=== PATIENT | female | born 1945 | race African-American/Black ===

== ENCOUNTER 2018-10-01 02:12 | Inpatient (IN) ==
--- NOTE | 2018-10-01 02:02 | PROVIDER DOCUMENTATION ---
This chart was entered by Celia Gavin Scribe, acting as scribe for David Reyna MD. HPI-Abdominal Pain/GI Problem - General Chief Complaint: Abdominal Pain Stated Complaint: Abd Pain Time Seen by Provider: 10/01/18 01:53 Source: patient, EMS ([facility]) Allergies/Adverse Reactions: Patient Allergies Allergy/AdvReac Type Severity Reaction Status Date / Time nitrofurantoin Allergy Intermediate ITCHING Verified 10/01/18 02:35 macrocrystalline * [From Macrodantin] nitrofurantoin Allergy Unknown Verified 10/01/18 02:35 [From Macrobid] Home Medications: Home Medication List Medication Instructions Recorded Confirmed Last Taken Type Anastrozole 1 mg PO DAILY 05/26/16 05/26/16 05/26/16 History Apixaban [Eliquis] 2.5 mg PO BID 05/26/16 05/26/16 05/26/16 History Atorvastatin Calcium 20 mg PO QHS 05/26/16 05/26/16 05/25/16 History Carvedilol [Coreg] 3.125 mg PO BID 05/26/16 05/26/16 05/26/16 History Famotidine 40 mg PO BID 05/26/16 05/26/16 05/26/16 History Fluticasone/Salmeterol [Advair 1 each IH BID 05/26/16 05/26/16 05/26/16 History 250-50 Diskus] Folic Acid 1 mg PO DAILY 05/26/16 05/26/16 05/26/16 History Gabapentin 100 mg PO TID 05/26/16 05/26/16 05/26/16 History Hydrocodone/Acetaminophen [[place] 1 each PO BID PRN 05/26/16 05/26/16 05/25/16 History 7.5-325 Tablet] Iron Carbonyl/Ascorbic Acid 1 each PO DAILY 05/26/16 05/26/16 05/26/16 History [Icar-C] Furosemide [Lasix] 40 mg PO DAILY PRN #30 tablet 05/29/16 Unknown Rx - History of Present Illness-ABD Nature of Presenting Problems: 73 yof presents to ed via ems with cc of left sided abd pain upper and lower quads that radiates to epigastric area with nausea and vomiting. Reports took pepto with no relief. Also reports loose stool also. States eat chilli before pain started at 1900. Abdominal Pain Onset Location: reports: LUQ, LLQ Pain Radiation: reports: epigastric Quality of Pain: reports: aching Severity in ED: reports: moderate Onset/Duration: reports: this evening (1899) Timing: reports: still present Review of Systems - Adult - REVIEW OF SYSTEMS - ADULT Constitutional: denies: chills, fever, fatique Eyes: reports: no symptoms reported Ears, Nose, Mouth & Throat: reports: no symptoms reported Cardiovascular: denies: chest pain, irregular heart rate, orthopnea, syncope Respiratory: denies: cough, shortness of breath, wheezing Gastrointestinal: reports: abdominal pain, nausea, vomiting. denies: hematemesis, constipation, diarrhea, difficulty swallowing, frequent heartburn, poor appetite, rectal bleeding Genitourinary: denies: dysuria, discharge, frequency, flank pain, frequent UTI's , hematuria, hesitency, incontinence Musculoskeletal: reports: no symptoms reported Integumentary: reports: no symptoms reported Neurological: reports: no symptoms reported Psychiatric: reports: no symptoms reported Endocrine: reports: no symptoms reported Hematologic/Lymphatic: reports: no symptoms reported Allergic/Immunologic: reports: no symptoms reported All Other Systems: Reviewed and Negative Past History - Adult - PAST MEDICAL HISTORY-ADULT Review of Records: reports: Nursing Assessment Review, Medications Reviewed Cardiovascular: reports: A-Fib, HTN, hyperlipidemia Respiratory: reports: asthma, COPD Genitourinary: reports: other (renal insufficency) Endocrine/Immune: reports: Diabetes - PRIOR SURGERIES/PROCEDURES Surgical/Procedure History: reports: , other (right masectomy) - IMMUNIZATION STATUS Childhood Immunizations: See Nurse Assessment Flu Vaccine: See Nurse Assessment - FAMILY HISTORY Family History: reviewed, not pertinent - SOCIAL HISTORY Smoking: non-smoker Substance Use: none/never Physical Exam-General - PHYSICAL EXAM-ADULT Initial Vital Signs Reviewed: Yes - CONSTITUTIONAL General Appearance: appears well, alert, no apparent distress, obese - EYES Eyes: PERRL/EOMI, pink conjunctivae - HEAD, EARS, NOSE, MOUTH & THROAT HENMT: moist mucous membranes - NECK Neck: non-tender, full range of motion, supple, normal inspection - RESPIRATORY Respiratory: chest non-tender, lungs clear, normal breath sounds, no pleuratic chest pain, no respiratory distress, no accessory muscle use - CARDIOVASCULAR Cardiovascular: regular rate, rhythm, no edema, no gallop, no JVD, no murmur - GASTROINTESTINAL (ABDOMEN) Abdominal Exam: non tender, soft, no organomegaly, no pulsatile mass, tenderness (ttp epigastric). negative: normal bowel sounds (decreased bowel sounds) - LYMPHATIC Lymphatic: no adenopathy - MUSCULOSKELETAL Back Exam: normal inspection, no CVA tenderness, no vertebral tenderness Extremity: normal range of motion, non-tender, normal gait, normal inspection - SKIN Integumentary: normal color, normal turgor, warm/dry, other (healed C Section scar on abd) - NEUROLOGIC Neurologic: grossly normal - PSYCHIATRIC Psych/Mental Status: normal mood/affect, normal thought content, normal thought process, oriented x 3 Progress - PLAN OF CARE/RESULTS Progress/Plan/Lab Results: Laboratory Tests 10/01/18 10/01/18 10/01/18 02:08 02:48 02:55 WBC 4.41 L RBC 3.47 L Hgb 10.3 L Hct 32.2 L MCV 92.8 MCH 29.7 MCHC 32.0 L RDW Std Deviation 18.8 H Plt Count 173 MPV 11.8 H Immature Gran % (Auto) 0.2 Neut % (Auto) 78.4 H Lymph % (Auto) 10.7 L [place] % (Auto) 10.0 H Eos % (Auto) 0.5 Baso % (Auto) 0.2 Immature Gran # (Auto) 0.01 Neut # (Auto) 3.46 Lymph # (Auto) 0.47 L [place] # (Auto) 0.44 Eos # (Auto) 0.02 Baso # (Auto) 0.01 Sodium 142 Potassium 5.1 Chloride 107 Carbon Dioxide 19 L Anion Gap 16 BUN 47 H Creatinine 2.2 H Estimated GFR/1.73 m2 22 BUN/Creatinine Ratio 21 Glucose 127 H POC Glucose 128 H Calculated Osmolality 297 Calcium 9.8 Total Bilirubin 1.30 H AST 22 ALT 10 Alkaline Phosphatase 115 H Troponin T Rro-U-Wmbgwxcqaip Pept Total Protein 7.2 Albumin 3.4 L Globulin 4.0 Albumin/Globulin Ratio 1.0 Amylase 29 Lipase 17 Urine Source 10/01/18 10/01/18 10/01/18 02:55 02:55 04:08 WBC RBC Hgb Hct MCV MCH MCHC RDW Std Deviation Plt Count MPV Immature Gran % (Auto) Neut % (Auto) Lymph % (Auto) [place] % (Auto) Eos % (Auto) Baso % (Auto) Immature Gran # (Auto) Neut # (Auto) Lymph # (Auto) [place] # (Auto) Eos # (Auto) Baso # (Auto) Sodium Potassium Chloride Carbon Dioxide Anion Gap BUN Creatinine Estimated GFR/1.73 m2 BUN/Creatinine Ratio Glucose POC Glucose Calculated Osmolality Calcium Total Bilirubin AST ALT Alkaline Phosphatase Troponin T < 0.010 Pad-O-Uimlysnhgzj Pept 2451 H Total Protein Albumin Globulin Albumin/Globulin Ratio Amylase Lipase Urine Source CLEAN CATCH Orders Category Date Time Status FSBS [Finger Stick Blood Sugar (ED)] DIRECTED Care 10/01/18 02:40 Active Saline Loc DIRECTED Care 10/01/18 01:54 Active NPO Diet 10/01/18 01:[address] ABDOMEN/PELVIS W/O CONTRAST [CT] Stat Exams 10/01/18 03:44 Taken AMYLASE [CHEM] Stat Lab 10/01/18 02:55 Completed BNP [PRO B-NATRIURETIC PEPTIDE] Stat Lab 10/01/18 02:55 Completed CBC WITH ELECTRONIC DIFF [HEME] Stat Lab 10/01/18 02:48 Completed COMPREHENSIVE METABOLIC PANEL [CHEM] Stat Lab 10/01/18 02:55 Completed LIPASE [CHEM] Stat Lab 10/01/18 02:55 Completed TROPONIN T Stat Lab 10/01/18 02:[address] W/POSS RFLX CULT [URINALYSIS] Routine Lab 10/01/18 04:08 Results Ondansetron Odt [Zofran Odt] Med 10/01/18 01:57 Discontinued 4 mg PO NOW ONE EKG [EKG] Stat Ther 10/01/18 01:54 Ordered Vital Signs - 24 hr 10/01/18 01:50 Temperature 96.9 F L Pulse Rate 98 H Respiratory Rate 22 Blood Pressure 147/93 O2 Sat by Pulse Oximetry [address] Elaine Iglesias already paiged Result Diagrams: 10/01/18 02:48 10/01/18 02:55 - CT/MRI 1 CT Study: Abdomen, Pelvis Impression: Abnormal, Discussed w/Radiology (Early to moderate small bowel obstruction) - CONSULTS/PCP/HOSPITALIST Notification #1 *Consult/PCP/Hospitalist*: Time Discussed: 05:15 Consult Disposition: Admit #2 Consult: Time Discussed: 05:28 Consult Disposition: Admit Departure - Departure Date of Disposition Decision: 10/01/18 Time of Disposition Decision: 05:14 DIAGNOSIS: Small bowel obstruction, Abdominal pain Disposition: ADMITTED INPATIENT 09 Certified Medical Emergency: Emergent Condition: Stable Referrals and Follow-Ups: None,PCP [Primary Care Provider] - - Critical Care Note This patient required my direct & personal management of CC.: No Attestation - Physician/ CYDNEY Attestation Patient care was provided by Advanced Practice Provider:: No The physician spent face to face time with patient:: Yes Advanced Practice Provider documentation review:: Supervising physician onsite and consulted in the evaluation and care of this patient. The physician did have a face to face encounter with the patient. This chart was documented by the indicated scribe, (Celia Gavin Scribe) and accurately reflects the services I performed and decisions made by me, David Reyna MD, as attested by the provider's signature.
[~2018-10-01 02:12] MED LIST: ZOFRAN ODT PO ONE
[2018-10-01 03:35] LABS: BASO# 0.01 X1000 (0.0-0.2); BASO% 0.2 % (0.0-0.8); EOS# 0.02 X1000 (0.0-0.7); EOS% 0.5 % (0.0-10.0); HEMATOCRIT 32.2 % (37.0-47.0); HEMOGLOBIN 10.3 g/dL (12.0-16.0); IMM GRAN# 0.01 X1000 (0.0-0.04); IMM GRAN% 0.2 % (0.0-0.5); LYMPH# 0.47 X1000 (1.2-3.4); LYMPH% 10.7 % (20.5-51.1); MCH 29.7 PG (27-31); MCV 92.8 FL (81-99); MONO# 0.44 X1000 (0.11-0.59); MPV 11.8 FL (7.4-10.4); NEUT# 3.46 X1000 (1.4-6.5); NEUT% 78.4 % (42.2-75.2); PLT 173 X1000 (130-400); RBC 3.47 XMIL (4.2-5.4); RDW 18.8 % (11.5-14.5); WBC 4.41 X1000 (4.8-10.8)
[2018-10-01 03:40] LABS: ALBUMIN 3.4 g/dL (3.5-5.0); CALCIUM 9.8 mg/dL (8.8-10.2); CREATININE 2.2 mg/dL (0.5-0.9); POTASSIUM 5.1 mmol/L (3.5-5.1); TOTAL BILIRUBIN 1.3 mg/dL (0.20-1.00); TOTAL PROTEIN 7.2 g/dL (6.3-8.3)
[2018-10-01 04:32] LABS: URINE SOURCE CLEAN CATCH
[2018-10-01] MEDS ORDERED: NS 1,000 ML IV ONE (05:25)
[2018-10-01 05:58] LABS: BILIRUBIN URINE NEGATIVE (NEGATIVE); BLOOD URINE 1+ (NEGATIVE); GLUCOSE URINE NEGATIVE (NEGATIVE); KETONE URINE NEGATIVE (NEGATIVE); LEUKOCYTES URINE TRACE (NEGATIVE); NITRITE URINE NEGATIVE (NEGATIVE); PH URINE 6.5; PROTEIN URINE NEGATIVE (NEGATIVE); UROBILINOGEN URINE 8 mg/dL
[2018-10-01 05:59] LABS: CLARITY CLEAR (CLEAR); COLOR YELLOW
[2018-10-01 06:01] LABS: URINE BACTERIA 1+ /HFP; URINE EPITHELIAL CELLS <10 /HPF (<10); URINE RBC <10 /HPF (<10); URINE WBC <10 /HPF (<10)
[2018-10-01] MEDS ORDERED: LOPRESSOR IV SCH (08:00)
--- NOTE | 2018-10-01 08:13 | Diag Imaging Result Doc PS360 ---
EXAM: CT ABDOMEN/PELVIS W/O CONTRAST INDICATION: abdominal pain TECHNIQUE: This exam was performed using automated exposure control, adjustment of mA or kV according to patient size, and/or use of iterative reconstruction technique. COMPARISON: 05/07/2016 FINDINGS: There is cardiomegaly and subsegmental atelectasis at the left lung base. There are a few calcified granulomata at the lung bases. There is trace pericardial fluid. The liver, gallbladder, and spleen are grossly unremarkable. The pancreas is atrophic but is unremarkable, otherwise. The adrenal glands are unremarkable. The kidneys appear atrophic but are grossly unremarkable, otherwise. The urinary bladder is unremarkable. The reproductive tract is grossly unremarkable as imaged. The appendix is normal. There is feculent material in several loops of small bowel in the lower abdomen, which is a nonspecific finding suggesting slow bowel transit. Bowel loops are not significantly distended. The colon is largely collapsed. There is nothing that is specific for obstruction. There is probably trace free fluid in the pelvis. No focal inflammatory changes or free abdominal gas is identified. There is generalized body wall anasarca. There are degenerative changes throughout the spine and severe degenerative changes of both hips. IMPRESSION: 1.Basilar material in several loops of small bowel with no significant distention. This is a nonspecific finding suggesting slow bowel transit. 2.Body wall anasarca. 3.Other incidental/nonacute findings detailed above. Electronically signed by Daquan Sharp 10/01/2018 8:11 AM
--- NOTE | 2018-10-01 08:35 | EKG Report ---
Test Performed on : 10/01/2018 02:59:37 AM Test Reason : pain Blood Pressure : / mmHG Vent. Rate : 095 BPM Atrial Rate : 057 BPM P-R Int : 000 ms QRS Dur : 080 ms QT Int : 372 ms P-R-T Axes : 000 132 -11 degrees QTc Int : 467 ms Undetermined rhythm Right axis deviation Low voltage QRS Nonspecific ST and T wave abnormality Abnormal ECG When compared with ECG of 06-MAY-2016 23:45, Current undetermined rhythm precludes rhythm comparison, needs review QRS axis shifted right Nonspecific T wave abnormality now evident in Anterior leads Unconfirmed Result
[2018-10-01] MEDS: ZOFRAN IV PRN ×3 (08:58→23:40)
--- NOTE | 2018-10-01 12:48 | HISTORY AND PHYSICAL ---
PRIMARY CARE PROVIDER: Dr. Melissa Clark. CHIEF COMPLAINT: Abdominal pain with nausea and vomiting. HISTORY OF PRESENT ILLNESS: Ms. Ruiz is a 73-year-old female who carries a past medical history of chronic kidney disease stage 3, atrial fibrillation, bradycardia status post pacemaker placement, hyperlipidemia, hypertension, iron deficiency anemia, COPD, diabetes mellitus type 2, breast cancer, and morbid obesity. The patient reported to the ED via EMS with complaint of left- sided abdominal pain in the upper and lower quadrants associated with nausea and vomiting. She did try to take some Pepto-Bismol with no relief. CT of the abdomen and pelvis showed basilar arterial and several loops of small bowel with no significant distention. Nonspecific findings suggestive of slow bowel transit, body wall edema. Patient was admitted for small-bowel obstruction. We contacted Dr. Henry. We will continue with NPO, IV fluids, and management of pain and nausea with antiemetics and pain medications. Continue with bowel rest. Await general surgery's recommendations. 1. Chronic kidney disease stage 3. Patient appears to be at her baseline. 2. Diabetes mellitus type 2. Will continue sliding scale and pattern blood sugars. 3. Atrial fibrillation and bradycardia status post permanent pacemaker placement. 4. Hypertension. 5. Hyperlipidemia. 6. Iron deficiency anemia. 7. COPD. 8. Morbid obesity. 9. Breast cancer number PAST SURGICAL HISTORY: 1. Right mastectomy. 2. . 3. Permanent pacemaker. SOCIAL HISTORY: She quit smoking over 30 years ago. FAMILY HISTORY: Noncontributory. ALLERGIES: Macrodantin. HOME MEDICATIONS: 1. Atorvastatin. 2. Calcium 20 mg p.o. at bedtime. 3. Coreg 1 tab p.o. b.i.d. 4. Pepcid 20 mg p.o. b.i.d. 5. Ferrous sulfate 1 tab p.o. at bedtime. 6. Advair 250/50 Diskus 1 each inhaled b.i.d. 7. Lasix 120 mg p.o. every morning. 8. Lasix 80 mg p.o. every evening. 9. [place] 7.5/325 one each p.o. b.i.d. p.r.n. 10. Hydroxyzine 25 mg p.o. t.i.d. p.r.n. 11. Irbesartan 1 tab p.o. daily. 12. Potassium chloride 1 tab p.o. daily. 13. Xarelto 15 mg p.o. daily. PHYSICAL EXAMINATION: VITAL SIGNS: Temperature 98.5 degrees, heart rate 90, respirations 20, blood pressure 146/79, O2 is 96% on room air.General: Ms. Ruiz is a 73-year-old female who is lying on the stretcher in no acute distress. She is asleep, awakens easily. HEENT: Atraumatic, normocephalic. PERRL. Neck: Supple. Trachea midline. CV: S1, S2 appreciated. No murmurs. No gallops. No rubs. Respiratory: Lung sounds clear to excursion. Nonlabored breathing. GI: Relatively soft. Tender in the left quadrants. Hypoactive bowel sounds. Extremities: No clubbing. No cyanosis. Skin: Warm, dry, and intact. Neurologic: The patient with no focal deficits noted. Patient is alert and oriented x4. DIAGNOSTIC DATA: Abdomen and pelvis CT show several loops of small bowel no significant distention. There are nonspecific finding suggesting small bowel transient, body wall anisocoria. LABORATORY DATA: White count 4, hemoglobin and hematocrit 10 and 32, platelet count is 173,000. Chemistry: Sodium 142, potassium 5.2, BUN 47, creatinine 2.2, blood glucose is 127, total bilirubin is 1.30. Troponin less than 0.010. ProBNP is 2451. Amylase 29, lipase 17. ASSESSMENT AND PLAN: 1. Partial small bowel obstruction. General Surgery has been consulted. We will continue with NPO status, IV fluid. Management for nausea and vomiting as well as pain control. Await General Surgery's recommendation. 2. Chronic kidney disease stage 3. Patient appears to be at her baseline. 3. Atrial fibrillation bradycardia status post permanent pacemaker. 4. Hyperlipidemia. 5. Hypertension. 6. Iron deficiency anemia. 7. Chronic obstructive pulmonary disease. 8. Diabetes mellitus type 2. Continue with sliding scale and pattern blood sugars. 9. Breast cancer. 10. Morbid obesity. 11. Further recommendations to follow physician evaluation, laboratory, and diagnostic data. Dictated by DAVID Mckeon for Marcello Iglesias MD cc: MD Melissa Adams MD [facility]
[2018-10-01] MEDS ORDERED: DUONEB (A & A) INH PRN (17:42)
[2018-10-01] MEDS ORDERED: NS 1,000 ML IV SCH (17:45)
[2018-10-01] MEDS: SODIUM CHLORIDE 0.9% INJ SCH (19:07)
[2018-10-01] MEDS: PROTONIX IV SCH (19:07)
[2018-10-01] MEDS ORDERED: DUONEB (A & A) INH SCH ×2 (19:16→22:00)
--- NOTE | 2018-10-01 19:31 | Diag Imaging Result Doc PS360 ---
EXAM: CHEST-PORTABLE 10/01/2018 HISTORY: ? PNA TECHNIQUE: AP portable at 1919 COMMENT: There is alveolar opacity in the left upper lobe which was not present on 05/28/2016. There is cardiomegaly. IMPRESSION: Left upper lobe pneumonia. Electronically signed by Carlo Shelton 10/01/2018 7:29 PM
[2018-10-01] MEDS: LASIX IV SCH ×2 (19:36→19:37)
[2018-10-01] MEDS ORDERED: CARDIZEM IV ONE (19:44)
[2018-10-01 20:10] LABS: BE -6.2 mmoll (-3.0-3.0); BLOOD TYPE ARTERIAL; HCO3-(ACT) 19.2 mmoll (20.0-26.0); METHB 0.9 % (0.0-1.5); O2(CT) 10.4 mL/dL (15.0-23.0); SAMPLE BLOOD; SAO2 63.8 % (95.0-100.0); SRATE 22 BPM
[2018-10-01 20:17] LABS: pH(98.6) 7.18 (7.35-7.45)
[2018-10-01 20:18] LABS: MODALITY BI PAP; O2HB 61.5 % (95.0-99.0); PCO2(98.6) 61 mmHg (35-45); PO2(98.6) 36 mmHg (60-100)
[2018-10-01 20:19] LABS: ALLEN TEST NO
[2018-10-01] MEDS ORDERED: LASIX IV ONE (20:32)
[2018-10-01 20:38] LABS: BE -5.6 mmoll (-3.0-3.0); BLOOD TYPE ARTERIAL; HCO3-(ACT) 20.5 mmoll (20.0-26.0); METHB 1.2 % (0.0-1.5); O2(CT) 13.6 mL/dL (15.0-23.0); O2HB 95.8 % (95.0-99.0); PCO2(98.6) 46 mmHg (35-45); PO2(98.6) 141 mmHg (60-100); SAMPLE BLOOD; SAO2 99.5 % (95.0-100.0); SRATE 22 BPM; THB 9.9 g/dL (11.5-17.4); pH(98.6) 7.27 (7.35-7.45)
[2018-10-01 20:40] LABS: ALLEN TEST NO; MODALITY BI PAP
[2018-10-01] MEDS ORDERED: CARDIZEM 100 MG/NS 100 MG/100 ML IVPB IV SCH (20:57)
[2018-10-01] MEDS ORDERED: LACTULOSE PO SCH (21:00)
[2018-10-01] MEDS ORDERED: COREG PO SCH (21:00)
[2018-10-01] MEDS ORDERED: MILK OF MAGNESIA PO SCH (21:00)
[2018-10-01 21:23] LABS: BILIRUBIN URINE NEGATIVE (NEGATIVE); BLOOD URINE NEGATIVE (NEGATIVE); CLARITY CLEAR (CLEAR); COLOR YELLOW; GLUCOSE URINE NEGATIVE (NEGATIVE); KETONE URINE NEGATIVE (NEGATIVE); LEUKOCYTES URINE TRACE (NEGATIVE); NITRITE URINE NEGATIVE (NEGATIVE); PH URINE 6.5; PROTEIN URINE NEGATIVE (NEGATIVE); SP GRAVITY URINE 1.015; UROBILINOGEN URINE 1 mg/dL
[2018-10-01 21:25] LABS: URINE BACTERIA 3+ /HFP; URINE EPITHELIAL CELLS <10 /HPF (<10); URINE SOURCE CATH; URINE WBC <10 /HPF (<10)
[2018-10-01] MEDS ORDERED: LASIX ONE (21:31)
[2018-10-01] MEDS ORDERED: DILTIAZEM ONE (21:32)
[2018-10-01] MEDS ORDERED: [UNRECOGNIZED DRUG - OTHER] ONE (21:32)
[2018-10-01] MEDS: NEO-SYNEPHRINE 50 MG in NS 250 ML IV SCH (21:45)
[2018-10-01] MEDS ORDERED: LANOXIN IV ONE (22:10)
[2018-10-01] MEDS: XOPENEX NEB INH SCH (22:35)
[2018-10-01] MEDS: ZOSYN 3.375 GM in NS 50 ML IV SCH (22:37)
[2018-10-01] MEDS: HUMULIN R (PARKWAY) SUBQ SCH (22:49)
--- NOTE | 2018-10-01 23:24 | HISTORY AND PHYSICAL ---
ADDENDUM: SUMMARY: Briefly, this is a 73-year-old female presenting with nausea, vomiting, abdominal pain. She does have a history of , but CT and abdomen showed possible partial small bowel obstruction although I think they said it was basically related to slow bowel transit, but it does look like she has some stool kind of throughout her small bowel or lower portion of her small bowel. PHYSICAL EXAMINATION: VITAL SIGNS: Blood pressure 118/83, heart rate 90, respiratory rate of 17, temperature 97.7 degrees, 95% on room air. CARDIOVASCULAR: Regular rate and rhythm. PULMONARY: Bilateral breath sounds. Clear to auscultation. GASTROINTESTINAL: Soft, nontender. Bowel sounds were very limited. PROBLEM LIST: 1. Partial small bowel versus ileus. She seems like she has got also to be cleared out a bit. 2. Chronic renal failure stage 3. She is stable. 3. Atrial fibrillation. Continue her regular medications pending clinical improvement. We will get a KUB tomorrow too abdomen just to see how her abdominal ileus or early obstruction is improving. cc: Marcello Iglesias MD
[2018-10-01] MEDS: MORPHINE IV PRN (23:39)
[2018-10-02] MEDS: ZOSYN 3.375 GM in NS 50 ML IV SCH ×4 (03:01→21:47)
[2018-10-02] MEDS: XOPENEX NEB INH SCH ×4 (03:08→21:00)
[2018-10-02] MEDS ORDERED: LANOXIN IV ONE (05:00)
--- NOTE | 2018-10-02 05:34 | GENERAL SURGERY CONSULTATION ---
DATE: 10/01/2018 REASON FOR CONSULTATION: Small bowel obstruction. HISTORY OF PRESENT ILLNESS: This is a 73-year-old female with a past medical history of type 2 diabetes, atrial fibrillation, hypertension, hyperlipidemia, COPD, morbid obesity, breast cancer, and chronic kidney disease, who presented to the ER last night after the onset of left-sided abdominal pain last night at 7 p.m. She says the pain is intermittent in nature but progressively worsened, and also began to move to different parts of her abdomen. Because of the progressive recurrent nature of the waves of pain she presented to the emergency room. She also has had some nausea and emesis. She had multiple large bowel movements that she says were soft last night. She has not had one today. No exacerbating factors or relieving factors for the pain, it comes and goes on its own. PAST MEDICAL HISTORY: As described above in the HPI. PAST SURGICAL HISTORY: Right mastectomy, , pacemaker placement. SOCIAL HISTORY: She quit smoking years ago. No alcohol use. FAMILY HISTORY: Reviewed and noncontributory. ALLERGIES: Nitrofurantoin. HOME MEDICATIONS: Atorvastatin, calcium, Coreg, Pepcid, ferrous sulfate, Advair, Lasix, [place], hydroxyzine, irbesartan, potassium chloride, Xarelto. REVIEW OF SYSTEMS: Ten systems reviewed and negative except as noted above. PHYSICAL EXAMINATION: Vital Signs: Temperature 97 degrees, pulse 90, respiratory rate is 17, blood pressure 118/83, O2 saturation is 95%. General: Elderly obese female in no acute distress who looks her stated age. HEENT: Normocephalic and atraumatic. Extraocular muscles are intact. Pupils are equal, round and reactive to light. Sclerae are anicteric. Moist mucous membranes. Hearing grossly normal. Neck: Supple. No thyromegaly. Cardiovascular: Regular rate and rhythm. Respiratory: Bilateral breath sounds. No work of breathing. Gastrointestinal: Soft, nondistended, obese, mildly tender across the upper abdomen. No rebound or guarding. No organomegaly or mass. No hernias. She has a well-healed lower midline incision. Hypoactive bowel sounds. Extremities: No clubbing, cyanosis, or edema. Skin: Warm and dry. No rash. Musculoskeletal: Moves all extremities equally and well. LABORATORY DATA: White cell count 4.4, hemoglobin 10, hematocrit 32, platelet count 173,000. Electrolytes reviewed, notable for CO2 of 19, BUN 47, creatinine 2.2, glucose 127, amylase 29, lipase 17, alkaline phosphatase 115. AST and ALT are normal. Total bilirubin is 1.3. Urinalysis reviewed and unremarkable. IMAGING: CT of abdomen and pelvis was performed which shows several small bowel loops with slight distention and some feculent material in the lumen. No obvious obstructing lesion or transition point. There is no free air or free fluid. ASSESSMENT AND PLAN: The patient is a 73-year-old female with abdominal pain, nausea and vomiting of unclear etiology. She does not appear to have a significant obstruction. We will continue gentle hydration, symptomatic control of pain and nausea, and re-evaluation with metabolic profile and flat and upright x-rays of the abdomen in the morning as well as physical examination. If she fails to improve then further evaluation with a small bowel follow-through, abdominal ultrasound and/or a diagnostic laparoscopy may be necessary. cc: Heber Henry MD
[2018-10-02] MEDS ORDERED: LASIX IV SCH (06:00)
[2018-10-02] MEDS ORDERED: LOVENOX SUBQ SCH (06:00)
[2018-10-02] MEDS: NEO-SYNEPHRINE 50 MG in NS 250 ML IV SCH (06:26)
[2018-10-02] MEDS: HUMULIN R (PARKWAY) SUBQ SCH ×4 (06:28→21:46)
[2018-10-02 06:35] LABS: HEMATOCRIT 33.1 % (37.0-47.0); HEMOGLOBIN 10.4 g/dL (12.0-16.0); MCHC 31.4 g/dL (33-37); MCV 95.4 FL (81-99); MPV 12.2 FL (7.4-10.4); RBC 3.47 XMIL (4.2-5.4); RDW 18.5 % (11.5-14.5); WBC 20.82 X1000 (4.8-10.8)
[2018-10-02 06:50] LABS: ALBUMIN 2.7 g/dL (3.5-5.0); CALCIUM 9.5 mg/dL (8.8-10.2); CREATININE 2.1 mg/dL (0.5-0.9); POTASSIUM 4.5 mmol/L (3.5-5.1); TOTAL BILIRUBIN 2.1 mg/dL (0.20-1.00); TOTAL PROTEIN 6.1 g/dL (6.3-8.3)
[2018-10-02 06:55] LABS: HEMOGLOBIN A1C 4.5 % (4.8-6.0)
--- NOTE | 2018-10-02 07:21 | Diag Imaging Result Doc PS360 ---
EXAM: ABDOMEN FLAT/UPRIGHT 10/02/2018 HISTORY: pain TECHNIQUE: Flat and upright abdomen COMMENT: There is a nonspecific bowel gas pattern. There is no definite evidence organomegaly or mass. There are spondylotic changes in the lumbar spine. There appears to be some opacification of the left lower lobe. IMPRESSION: Nonspecific abdomen. Atelectasis versus pneumonia left lower lobe. Electronically signed by Carlo Shelton 10/02/2018 7:19 AM
--- NOTE | 2018-10-02 07:23 | Diag Imaging Result Doc PS360 ---
EXAM: CHEST-PORTABLE 10/02/2018 HISTORY: dyspnea TECHNIQUE: AP portable at 0644 COMMENT: There is cardiomegaly, increased pulmonary vascularity, and opacity throughout much of the left lung including the upper lobe. There is worsened opacity at the right base. IMPRESSION: Worsening atelectasis versus pneumonia right lower lobe and stable left upper and lower lobe pneumonia. Electronically signed by Carlo Shelton 10/02/2018 7:20 AM
[2018-10-02] MEDS: XOPENEX NEB INH PRN ×2 (07:40→13:31)
[2018-10-02] MEDS ORDERED: CARDIZEM 125/NS 125 MG/125 ML IVPB IV SCH (07:53)
[2018-10-02] MEDS: LASIX IV SCH ×2 (09:25→21:47)
[2018-10-02] MEDS: ZOFRAN IV PRN (10:53)
[2018-10-02] MEDS: MORPHINE IV PRN (10:53)
[2018-10-02] MEDS: ZYVOX 600 MG/D5W 600 MG/300 ML IVPB IV SCH (12:39)
--- NOTE | 2018-10-02 13:06 | PROGRESS NOTE ---
DATE: 10/01/2018 CRITICAL CARE NOTE: Around 1800 hours, she was found to be in acute respiratory distress. Her initial saturations were 50%. Her heart rate was in the 150s, which ended up being atrial fibrillation with rapid ventricular response. She had audible crackles. We had a lot of difficulty getting an IV, but we did get an IV in the hand. Attempted an EJ on both sides. I could not get the 1 side and the ER nurse could not get the other side. The patient was placed on a non-rebreather. Saturations came up into the 80s and then we placed her on the BiPAP. She got Lasix. I ordered about 80 mg, but I am not sure how much. After the BiPAP, her saturations came up into the 100s. She was on 21/06 and then she was transferred to the ICU where we initiated [place]--Synephrine. I initially tried to get her on some Cardizem, but her heart rate actually started getting controlled on its own. I did give her some digoxin. CRITICAL CARE TIME: At least over 90 minutes for acute respiratory failure, atrial fibrillation with RVR requiring BiPAP. cc: Marcello Iglesias MD
--- NOTE | 2018-10-02 13:16 | PROGRESS NOTE ---
DATE: 10/02/2018 SUBJECTIVE: Patient has no focal complaints. OBJECTIVE: Vital Signs: Blood pressure is 138/51, heart rate 82, respiratory rate 20, temperature 97.3 degrees 98% on 3 L. Cardiovascular: Regular rate and rhythm. Pulmonary: Bilateral breath sounds. Clear to auscultation. Gastrointestinal: Abdomen was soft, nontender, nondistended. Bowel sounds are positive. She still has wheezing and rales. Peripheral edema. She also has significant external jugular distention, JVD. LABORATORY DATA: White count bumped up to 20, hemoglobin and hematocrit 10 and 33, platelets of 165,000. Sodium is 147. BUN and creatinine are 46 and 2.1. A1c is only 4.5. ProBNP was 88145. Chest x-ray shows left lower lobe pneumonia, right lower lobe pneumonia and left lower lobe pneumonia. Abdominal x-ray is negative. ASSESSMENT/PLAN: 1. Acute hypoxic respiratory failure likely related to pneumonia. Possible aspiration type and possible pulmonary edema. Acute with sepsis and shock. She is on oxygen, but not BiPAP, use intermittent BiPAP. I think she may benefit from Pulmonary consultation because of her respiratory failure, possibly even cardiology, although her atrial fibrillation now is rate controlled, although she is on pressors. 2. Left upper lobe pneumonia. She is on Zosyn. I am going to add Zyvox as well. Avoid vancomycin because she already has renal insufficiency. We will continue pulmonary toilet with breathing treatments. 3. Atrial fibrillation which is now rate controlled. She is on some digoxin. I am going to add some low-dose Cardizem. I did give her some digoxin for rate control. She does seem to be controlled. I do not think I want to maintain that long-term because she has renal insufficiency. 4. Shock, could be related to sepsis, but she has concern over volume overload so we will have to follow her closely from that standpoint and make sure there are no major issues but she is on Emmett-Synephrine. 5. Ileus, partial small-bowel. That seems to be resolving. I am going to go ahead and advance her diet and we will follow closely. 6. Chronic renal failure appears to be stable despite hypotension and diuretics so we will continue to monitor. [facility] am [facility]. She probably will need possibly cardiology evaluation as well. CRITICAL CARE TIME: 35-minute critical care time for respiratory failure, shock, pressors, positive pressure ventilation. cc: Marcello Iglesias MD
[2018-10-02] MEDS: MUCOMYST 20% INH SCH ×2 (13:31→21:00)
[2018-10-02] MEDS: ATROVENT NEB INH SCH ×2 (16:27→21:00)
[2018-10-02] MEDS: PROTONIX IV SCH (16:48)
--- NOTE | 2018-10-02 20:00 | CONSULTATION ---
DATE OF CONSULTATION: 10/02/2018 IMPRESSION: 1. Chronic atrial fibrillation. 2. Tendency for bradycardia requiring permanent pacemaker. 3. Suspected ileus versus partial small bowel obstruction. 4. Suspected pneumonia left lower lobe. 5. Chronic renal failure. 6. Hypertension. 7. Hyperlipidemia. 8. Obesity. RECOMMENDATIONS: 1. Would manage chronic atrial fibrillation with rate control and anticoagulation as tolerated. Suggest switching to oral metoprolol for rate control. Continue Xarelto as tolerated. 2. Conservative cardiovascular management overall. HISTORY: This 73-year-old -Lao female with past history of chronic kidney disease, atrial fibrillation, bradycardia requiring permanent pacemaker, hyperlipidemia, hypertension, COPD, type 2 diabetes mellitus, obesity and breast cancer was recently admitted initially at [facility] with symptoms of abdominal discomfort and some nausea and vomiting. She has also had some productive cough. She had some transient tachycardia in response to atrial fibrillation, was given some additional digoxin. She has continued on bowel rest. She has also had some respiratory difficulty and suspected of having left lower lobe pneumonia. She was transferred from [place] to the ICU in [facility] because of her acute hypoxemic respiratory failure. She denies any chest discomfort or shortness of breath presently on supplemental oxygen per nasal cannula. PAST MEDICAL HISTORY: 1. Chronic kidney disease. 2. Diabetes mellitus type 2. 3. Chronic atrial fibrillation. 4. Tendency for bradycardia requiring previous permanent pacemaker implant. 5. Hypertension. 6. Hyperlipidemia. 7. COPD. 8. Morbid obesity. 9. Breast cancer. PAST SURGICAL HISTORY: Includes right mastectomy, section, and permanent pacemaker implant. ALLERGIES: She is allergic or intolerant to Macrodantin. SOCIAL HISTORY: She has history of previous cigarette use in the past but quit over 30 years ago. FAMILY HISTORY: Negative for premature coronary disease. REVIEW OF SYSTEMS: Pulmonary: Noteworthy for some productive cough currently. She denies shortness of breath on supplemental oxygen per nasal cannula. Gastrointestinal: Noteworthy for recent problems with nausea and some vomiting. Constitutional: Negative for fever. Remainder of review of systems negative/noncontributory with 14 total systems reviewed. PHYSICAL EXAMINATION: General: This is a obese, older -Lao female in no distress. Vital signs: Blood pressure 132/61, heart rate 78 and regular, oxygen saturation 99%. HEENT: Extraocular movements intact. Mucous membranes are moist. Neck: Supple without jugular venous distention. No carotid bruits. Chest: Clear to auscultation. Cardiac Exam: Reveals a irregular rate and rhythm without appreciable murmur or gallop. Abdomen: Soft. Bowel sounds hypoactive. Extremities: Without edema. Neurologic: Reveals her to be alert and fully oriented. Speech is fluent. She moves all 4 extremities equally well. Skin: Warm, dry. Psychiatric: Reveals mood to be appropriate. DATA: 12 lead EKG demonstrates atrial fibrillation and low voltage QRS in the precordial leads. LABORATORY DATA: Includes a white blood cell count 20.82, hematocrit 33.1, hemoglobin 10.4, platelet count 165,000. Sodium 147, potassium 4.5, chloride 111, carbon dioxide 20, BUN 46, creatinine 2.1, glucose 118. cc: Alon Loyd MD
[2018-10-03] MEDS: ZYVOX 600 MG/D5W 600 MG/300 ML IVPB IV SCH ×2 (01:26→15:06)
--- NOTE | 2018-10-03 02:06 | EKG Report ---
Test Performed on : 10/01/2018 7:42:41 PM Test Reason : CP Blood Pressure : / mmHG Vent. Rate : 159 BPM Atrial Rate : 069 BPM P-R Int : 000 ms QRS Dur : 078 ms QT Int : 278 ms P-R-T Axes : 000 133 088 degrees QTc Int : 452 ms Undetermined rhythm Atrial fibrillation. Right axis deviation Low voltage QRS Nonspecific ST and T wave abnormality Abnormal ECG When compared with ECG of 01-OCT-2018 19:41, (Unconfirmed) Current undetermined rhythm precludes rhythm comparison, needs review Criteria for Septal infarct are no longer present T wave inversion no longer evident in Inferior leads T wave inversion now evident in Anterior leads Confirmed by Polo Damon MD ([id number]) on 10/30/2018 8:04:45 AM
[2018-10-03] MEDS: NEO-SYNEPHRINE 50 MG in NS 250 ML IV SCH (03:00)
[2018-10-03] MEDS: ATROVENT NEB INH SCH ×4 (03:10→21:12)
[2018-10-03] MEDS: XOPENEX NEB INH SCH ×4 (03:11→21:12)
[2018-10-03] MEDS: ZOSYN 3.375 GM in NS 50 ML IV SCH ×4 (04:06→22:28)
[2018-10-03 05:03] LABS: ALLEN TEST YES; BE -1.8 mmoll (-3.0-3.0); BLOOD TYPE ARTERIAL; HCO3-(ACT) 23.5 mmoll (20.0-26.0); METHB 0.6 % (0.0-1.5); O2(CT) 13.6 mL/dL (15.0-23.0); O2HB 96.4 % (95.0-99.0); PCO2(98.6) 49 mmHg (35-45); PO2(98.6) 97 mmHg (60-100); SAMPLE BLOOD; SAO2 99.9 % (95.0-100.0); THB 9.9 g/dL (11.5-17.4); pH(98.6) 7.31 (7.35-7.45)
[2018-10-03 05:05] LABS: MODALITY CANNULA
[2018-10-03] MEDS: MORPHINE IV PRN (05:07)
[2018-10-03 05:48] LABS: HEMATOCRIT 32.4 % (37.0-47.0); HEMOGLOBIN 10.1 g/dL (12.0-16.0); MCH 30.4 PG (27-31); MCHC 31.2 g/dL (33-37); MCV 97.6 FL (81-99); MPV 11.3 FL (7.4-10.4); PLT 162 X1000 (130-400); RBC 3.32 XMIL (4.2-5.4); RDW 18.7 % (11.5-14.5); WBC 18.91 X1000 (4.8-10.8)
[2018-10-03 05:49] LABS: BASO# 0.04 X1000 (0.0-0.2); BASO% 0.2 % (0.0-0.8); EOS# 0.02 X1000 (0.0-0.7); EOS% 0.1 % (0.0-10.0); IMM GRAN# 0.09 X1000 (0.0-0.04); IMM GRAN% 0.5 % (0.0-0.5); LYMPH# 0.85 X1000 (1.2-3.4); LYMPH% 4.5 % (20.5-51.1); MONO# 1.89 X1000 (0.11-0.59); NEUT# 16.02 X1000 (1.4-6.5); NEUT% 84.7 % (42.2-75.2)
[2018-10-03] MEDS: HUMULIN R (PARKWAY) SUBQ SCH ×4 (06:06→22:28)
[2018-10-03 06:19] LABS: CALCIUM 9.3 mg/dL (8.8-10.2); CREATININE 2.2 mg/dL (0.5-0.9); POTASSIUM 4.3 mmol/L (3.5-5.1)
--- NOTE | 2018-10-03 07:52 | Diag Imaging Result Doc PS360 ---
EXAM: CHEST-PORTABLE 10/03/2018 HISTORY: dyspnea TECHNIQUE: AP portable at 0520 COMMENT: There is increasing volume loss and opacification in the left lung compared to 10/02/2018. There is more fluid in the minor fissure on the right. IMPRESSION: Worsening atelectasis on the left possibly related to mucous plugging in the main stem bronchus. Small right pleural effusion. Electronically signed by Carlo Shelton 10/03/2018 7:49 AM
[2018-10-03 08:11] LABS: BANDS 14 % (0-1); HYPOCHROM 1+; LYMPHS 4 % (21-51); MONO 6 % (1-9); SEGS 76 % (42-75)
[2018-10-03] MEDS: LASIX IV SCH ×2 (09:04→22:27)
[2018-10-03 09:42] LABS: INR 2.49; PROTIME 28.7 Seconds (11.0-16.0)
[2018-10-03] MEDS: MUCOMYST 20% INH SCH ×2 (10:09→21:11)
--- NOTE | 2018-10-03 10:36 | PROGRESS NOTE ---
DATE: 10/03/2018 SUBJECTIVE: Patient reports feeling fine. No chest pain. No shortness of breath. No abdominal pain. No fever or chills. OBJECTIVE: Vital Signs: Temperature 98.2 degrees, heart rate 70, respiratory rate 17, blood pressure 114/61, O2 saturation 100% on room air. General Examination: This is a morbidly obese, 73-year-old, female lying in bed, in no acute distress. HEENT : Head is normocephalic and atraumatic. Mucous membranes dry. Neck: JVD not possible to evaluate because of neck girth. No lymphadenopathy. No thyromegaly. Cardiovascular Examination : S1 and S2 heard. Irregularly irregular heart rhythm. No murmurs, gallops, or rubs. Respiratory Examination: Coarse breath sounds and wheezing in both pulmonary reyna. The patient is not using any accessory muscles or having work of breathing. Abdomen: Soft, nontender to palpation. No signs of peritoneal irritation. Bowel sounds present. No organomegaly. Extremities: No clubbing, cyanosis. There is lower extremity edema of 2+ in both lower extremities. Neurological Examination: The patient is alert and oriented x3. Moves 4 extremities. Laboratory Data: White cell count 18.91, hemoglobin 10.1, hematocrit 32.4, platelets 162,000. ABG that shows pH 7.31, with pCO2 49, PO2 97. Sodium 146, creatinine 2.2. Chest x-ray portable done today showed worsening atelectasis on the left, possibly related to mucus plugging in the mainstem bronchus with small right pleural effusion. ASSESSMENT AND PLAN: 1. Acute respiratory failure secondary to pneumonia. The patient continues to be on antibiotics; in this case, Zosyn and Zyvox. The patient is requiring 2 L of oxygen by nasal cannula to keep oxygen needs above 90. At this point, I think she is stable. We will consult pulmonary and follow recommendations. 2. Shock, could be secondary to sepsis. The vasodepressor has been stopped for a few hours but I think it is going to be restarted again because blood pressure, in this case , MAP is less than 60. We will continue to monitor this patient closely. 3. Left upper lobe pneumonia, on antibiotics as above. Those antibiotics have been renally dosed. 4. Partial small bowel obstruction. That has resolved. The patient is on a clear liquid diet. We will advance it as tolerated. 5. Chronic kidney disease. Creatinine is at baseline. We will continue to monitor BMP daily. 6. Disposition. We will continue to monitor this patient in the intensive care unit because she is requiring vasopressors. cc: Sebastien Scott MD MTDD
--- NOTE | 2018-10-03 10:52 | Diag Imaging Result Doc PS360 ---
EXAM: CT THORAX W/O CONTRAST 10/03/2018 HISTORY: SOB TECHNIQUE: This exam was performed using automated exposure control, adjustment of mA or kV according to patient size, and/or use of iterative reconstruction technique. COMMENT: The current examination is compared with the previous study of 05/10/2016. The thyroid gland is somewhat heterogeneous in appearance and enlarged consistent with multinodular goiter. There is a left pleural effusion. There is volume loss on the left with shift of the mediastinum to the left side. The heart is enlarged with all four chambers distended. There is extensive coronary and aortic atherosclerotic calcification. There is mucosal thickening and/or secretions including the left mainstem bronchus. The majority of the left lung with some sparing of the apex is atelectatic. There are bilateral pleural effusions and a pericardial effusion is present, the latter measuring 11 mm posterior to the left ventricle. There is ill-defined pleural-based opacity in the right upper lobe on image 37 and in the medial apex there is a pleural-based density adjacent to some blebs which measures almost 17 mm in greatest dimension. These findings were not present at the time the previous examination. There is atelectasis and/or bronchopneumonia in the medial right lower lobe which was not present at the time the previous study. There are some granulomata in the right upper lobe. There are spondylotic changes in the thoracic spine. The gallbladder is somewhat distended. There is some subcutaneous edema over the lower chest and upper abdomen in the flanks. IMPRESSION: Atelectasis versus pneumonia throughout most of the left lung, with mucous plugging of the left mainstem bronchus. Bilateral pleural effusions. Pericardial effusion. Cardiomegaly. Patchy right upper lobe pneumonia and right lower lobe atelectasis versus pneumonia. Electronically signed by Carlo Shelton 10/03/2018 10:50 AM
[2018-10-03] MEDS ORDERED: NS 250 ML ONE (13:28)
--- NOTE | 2018-10-03 14:54 | Diag Imaging Result Doc PS360 ---
EXAM: CHEST-PORTABLE 10/03/2018 HISTORY: Picc line placement confirmation TECHNIQUE: AP portable at 1438 COMMENT: There continues to be volume loss, opacity and shift of the mediastinum to the left. There is a left-sided PICC line with its tip apparently in the superior vena cava just above the right atrium. IMPRESSION: Near complete atelectasis of the left lung presumably due to mucous plugging in the left mainstem bronchus. Cardiomegaly. Electronically signed by Carlo Shelton 10/03/2018 2:52 PM
--- NOTE | 2018-10-03 15:49 | GENERAL SURGERY PROGRESS NOTE ---
DATE: 10/03/2018 SUBJECTIVE: Having some flatus. No vomiting. She is tolerating low-volume clear liquids. No real abdominal discomfort. Heart rate is better. Pulmonary status is about the same. OBJECTIVE: Vital signs: Pulse in the 60s, blood pressure 100/45, oxygen saturation is 100% on 2 L, no fevers. General: She is alert. Cardiovascular: Normal rate. Pulmonary: She is on nasal cannula with no distress. Abdomen: Obese, but soft and nontender. DIAGNOSTIC STUDIES: White count is down to 18, hematocrit is 32. Creatinine is 2.2. ASSESSMENT AND PLAN: This is a 73-year-old female with multiple medical issues and some question of bowel obstruction, although she does not clinically seem obstructed. Suspect this is more of an ileus-type picture if anything. I will continue medical management. No plans for surgical intervention. cc: Teri Crump MD
[2018-10-03] MEDS: SODIUM CHLORIDE 0.9% INJ SCH (17:21)
[2018-10-03] MEDS: PROTONIX IV SCH (17:21)
--- NOTE | 2018-10-03 20:33 | CONSULTATION ---
DATE OF CONSULTATION: 10/03/2018 CHIEF COMPLAINT: Respiratory failure . HISTORY OF PRESENT ILLNESS: This is a 73-year-old female with a past medical history of chronic kidney disease stage 3, atrial fibrillation, bradycardia with pacemaker placement, hyperlipidemia, hypertension, iron deficiency anemia, COPD, diabetes mellitus type 2, breast cancer and morbid obesity. Patient was admitted with bowel obstruction , nausea and vomiting. Recent chest x-ray impression showed worsened atelectasis on the left lung related to mucous plugging in the main stem bronchus and small right pleural effusion. Chest CT also revealed bilateral pleural effusions, pericardial effusion, cardiomegaly, patchy right upper lobe pneumonia and right lower lobe atelectasis versus pneumonia also atelectasis versus pneumonia throughout most of the left lung with mucus plugging of the left main stem bronchus. PAST MEDICAL HISTORY: As mentioned in HPI. PAST SURGICAL HISTORY: 1. Right mastectomy. 2. . 3. Permanent pacemaker. SOCIAL HISTORY: Quit smoking 30 years ago. FAMILY HISTORY: Noncontributory. ALLERGIES: Macrodantin. HOME MEDICATIONS: See home reconciliation list. PHYSICAL EXAMINATION: Vital Signs: Pulse rate 72, respiratory rate 13, blood pressure 90/55, O2 saturation 97. General: Morbidly obese 73-year-old female lying in bed appears in no acute distress at the present time. HEENT: Head is normocephalic, atraumatic. Mucous membranes dry. Neck: Supple and no thyromegaly, no lymphadenopathy . Cardiovascular: S1, S2 auscultated irregularly irregular heart rhythm. No murmurs, gallops, or rubs. Respiratory: Coarse breath sounds and wheezing throughout lung reyna. Abdomen: Soft, nontender. Bowel sounds present in all 4 quadrants. Extremities: Lower extremities +2 edema bilaterally. Neurologic: Patient is oriented x3. LABORATORY DATA: White blood cells 18.91, red blood cells 3.32, hemoglobin 10.1 , hematocrit 32.4, PT 28.7, INR 2.49, pH 7.31, pCO2 49, PO2 97, HC03 23.9, base excess 1.8, oxyhemoglobin 96.4, sodium 146, potassium 4.3, chloride 109, carbon dioxide 23, BUN 54, creatinine 2.2, glucose 114. DIAGNOSTIC DATA: Chest x-ray and CT scan as mentioned in the HPI. ASSESSMENT AND PLAN: 1. Acute respiratory failure secondary to pneumonia, continue antibiotics, supplemental oxygen, bronchodilators as prescribed. 2. Chronic kidney disease. Continue to monitor. 3. Continue GI prophylaxis with Protonix 40 mg IV as scheduled. Thank you for the courtesy of this consult. Dictated by DAVID Villatoro for Melanie Dickerson MD cc: DAVID Villatoro MD [facility]
[2018-10-04] MEDS: XOPENEX NEB INH SCH ×4 (03:10→21:19)
[2018-10-04] MEDS: ATROVENT NEB INH SCH ×4 (03:30→21:19)
[2018-10-04] MEDS: ZYVOX 600 MG/D5W 600 MG/300 ML IVPB IV SCH ×2 (04:14→15:37)
[2018-10-04] MEDS: ZOSYN 3.375 GM in NS 50 ML IV SCH ×4 (04:14→22:50)
[2018-10-04 05:13] LABS: ALLEN TEST YES; BE -1.2 mmoll (-3.0-3.0); BLOOD TYPE ARTERIAL; HCO3-(ACT) 23.9 mmoll (20.0-26.0); METHB 1.3 % (0.0-1.5); O2(CT) 15.1 mL/dL (15.0-23.0); O2HB 94.9 % (95.0-99.0); PO2(98.6) 95 mmHg (60-100); SAMPLE BLOOD; SAO2 98.1 % (95.0-100.0); THB 11.2 g/dL (11.5-17.4); pH(98.6) 7.29 (7.35-7.45)
[2018-10-04 05:14] LABS: MODALITY CANNULA; PCO2(98.6) 54 mmHg (35-45)
[2018-10-04 05:31] LABS: BASO# 0.03 X1000 (0.0-0.2); BASO% 0.2 % (0.0-0.8); EOS# 0.06 X1000 (0.0-0.7); EOS% 0.3 % (0.0-10.0); HEMATOCRIT 35.2 % (37.0-47.0); IMM GRAN# 0.07 X1000 (0.0-0.04); IMM GRAN% 0.4 % (0.0-0.5); LYMPH# 0.86 X1000 (1.2-3.4); LYMPH% 4.7 % (20.5-51.1); MCH 29.6 PG (27-31); MCHC 31.3 g/dL (33-37); MCV 94.9 FL (81-99); MONO# 1.44 X1000 (0.11-0.59); MONO% 7.8 % (1.7-9.3); NEUT# 15.98 X1000 (1.4-6.5); NEUT% 86.6 % (42.2-75.2); PLT 190 X1000 (130-400); RBC 3.71 XMIL (4.2-5.4); WBC 18.44 X1000 (4.8-10.8)
[2018-10-04 05:49] LABS: CREATININE 2.1 mg/dL (0.5-0.9); POTASSIUM 3.7 mmol/L (3.5-5.1)
[2018-10-04 06:39] LABS: BANDS 4 % (0-1); LYMPHS 8 % (21-51); MONO 4 % (1-9); SEGS 84 % (42-75)
--- NOTE | 2018-10-04 07:20 | Diag Imaging Result Doc PS360 ---
EXAM: CHEST-PORTABLE INDICATION: dyspnea TECHNIQUE: One view COMPARISON: 10/03/2018 FINDINGS: Subtotal opacification of the left hemithorax with volume loss is again noted. There is stable pulmonary venous congestion. No new consolidation is identified on the right. Cardiac silhouette is stable. IMPRESSION: Essentially stable chest. Electronically signed by Daquan Sharp 10/04/2018 7:17 AM
[2018-10-04] MEDS: HUMULIN R (PARKWAY) SUBQ SCH ×3 (07:34→21:09)
[2018-10-04] MEDS: MUCOMYST 20% INH SCH ×2 (10:09→21:19)
--- NOTE | 2018-10-04 11:06 | PROGRESS NOTE ---
DATE: 10/04/2018 SUBJECTIVE: Patient continues to have cough. No fever. No chest pain. No difficulty in breathing. OBJECTIVE: Vital Signs: Temperature is 97.5, heart rate 85, respiratory rate 21 , blood pressure is 86/59. O2 saturation 100% on 2 L nasal cannula. General: This is a morbidly obese, 73-year- old -[place] female lying in bed in no acute distress. HEENT: Head is normocephalic, atraumatic. Mucous membranes dry. Neck: No JVD noted. No lymphadenopathy. No thyromegaly. Cardiovascular: S1, S2 heard. Irregularly irregular heart rhythm but there are no murmurs, gallops, or rubs. Respiratory: Coarse breath sounds in both pulmonary reyna as well as wheezing. The patient is not using any accessory muscles or having work of breathing. Abdomen is soft, nontender to palpation. No signs of peritoneal irritation. Bowel sounds present. No organomegaly. Extremities: No clubbing or cyanosis. Lower extremity edema noted in both lower extremities. Neurologic. Patient alert and oriented x3. Moves 4 extremities. LABORATORY DATA: White cell count 18.84, hemoglobin 11.0, hematocrit 35.2, platelets 190. ABG reviewed with pCO2 of 54, PO2 of 94. BMP shows baseline creatinine. ASSESSMENT AND PLAN: 1. Acute respiratory failure secondary to pneumonia. Patient is on Zosyn and Zyvox. His ABG shows elevated CO2. We will continue with breathing treatments. We will check ABG tomorrow. Pulmonary following this patient. We will follow recommendations. 2. Shock secondary to sepsis. Continued to be on pressors. We will continue to monitor this patient closely. 3. Left upper lobe pneumonia. Patient on antibiotics as above. We will continue to monitor. 4. Chronic kidney disease, stage 3. Creatinine is at baseline. DISPOSITION: We will continue to monitor this patient in the Intensive Care Unit. cc: Sebastien Scott MD [facility]
[2018-10-04] MEDS: LASIX IV SCH (11:29)
[2018-10-04 13:27] LABS: INR 1.84; PROTIME 22.6 Seconds (11.0-16.0); PTT 34.5 Seconds (22.3-41.8)
--- NOTE | 2018-10-04 14:09 | PROGRESS NOTE ---
DATE: 10/04/2018 SUBJECTIVE: Patient continues without shortness of breath or chest discomfort. OBJECTIVE: Vital Signs: Blood pressure 110/50, heart rate 70 and irregular, oxygen saturation 100%. Neck: There is no significant jugular venous distention. Chest: Clear to auscultation anteriorly. Cardiac: Irregular rate and rhythm without appreciable murmur or gallop. There is no evidence of peripheral edema. LABORATORY DATA: White blood cell count 18.44, hematocrit 35.2, hemoglobin 11.0, platelet count 190,000. Sodium 144, potassium 3.7, chloride 105, carbon dioxide 25, BUN 53, creatinine 2.1, glucose 79. IMPRESSION: 1. Chronic atrial fibrillation. Rate controlled. 2. Status post permanent pacemaker for bradycardia. 3. Recent suspected ileus versus small bowel obstruction. 4. Suspected pneumonia left lower lobe. 5. Chronic renal failure. 6. Hypertension. 7. Obesity. 8. Hyperlipidemia. RECOMMENDATIONS: 1. Continue low-dose metoprolol. 2. Resume anticoagulation when acceptable from an overall medical standpoint. Patient has been on Xarelto in the past. 3. No further CV suggestions. We will see patient further on an as needed basis. cc: Alon Loyd MD
--- NOTE | 2018-10-04 14:41 | GENERAL SURGERY PROGRESS NOTE ---
DATE: 10/04/2018 SUBJECTIVE: Denies any abdominal pain. She is passing some gas. No nausea, vomiting. OBJECTIVE: Vital Signs: Heart rate has been 60s, blood pressure 120/67. General: She is alert. Abdomen: Soft, nontender, nondistended. Cardiovascular: Normal rate. Pulmonary: No increased work of breathing. LABS: White count is 18, hematocrit 35. Creatinine is 2.1. ASSESSMENT AND PLAN: A 73-year-old female with multiple medical issues and apparent associated ileus. She seems to be doing well. Would keep her on low volume of clear liquids for now and advance as tolerated. She can start a bowel stimulation from below and even stool softeners as needed. cc: Teri Crump MD
[2018-10-04] MEDS: PROTONIX IV SCH (17:34)
[2018-10-04] MEDS: NEO-SYNEPHRINE 50 MG in NS 250 ML IV SCH (23:10)
[2018-10-05] MEDS: LASIX IV SCH ×3 (00:22→23:56)
[2018-10-05] MEDS: ZYVOX 600 MG/D5W 600 MG/300 ML IVPB IV SCH ×2 (02:43→14:50)
[2018-10-05] MEDS: ATROVENT NEB INH SCH ×4 (03:38→22:13)
[2018-10-05] MEDS: XOPENEX NEB INH SCH ×4 (03:38→22:13)
[2018-10-05] MEDS: ZOSYN 3.375 GM in NS 50 ML IV SCH ×4 (04:51→23:56)
[2018-10-05] MEDS: HUMULIN R (PARKWAY) SUBQ SCH ×4 (06:28→22:53)
[2018-10-05] MEDS ORDERED: VITAMIN K 10 MG in NS 50 ML IV ONE (07:14)
[2018-10-05] MEDS: MUCOMYST 20% INH SCH ×2 (07:43→22:12)
[2018-10-05 08:57] LABS: BASO# 0.02 X1000 (0.0-0.2); BASO% 0.2 % (0.0-0.8); EOS# 0.07 X1000 (0.0-0.7); EOS% 0.6 % (0.0-10.0); HEMATOCRIT 33.5 % (37.0-47.0); HEMOGLOBIN 10.5 g/dL (12.0-16.0); IMM GRAN# 0.04 X1000 (0.0-0.04); IMM GRAN% 0.3 % (0.0-0.5); LYMPH# 0.65 X1000 (1.2-3.4); LYMPH% 5.4 % (20.5-51.1); MCH 29.7 PG (27-31); MCHC 31.3 g/dL (33-37); MCV 94.6 FL (81-99); MONO# 0.93 X1000 (0.11-0.59); MONO% 7.8 % (1.7-9.3); MPV 11.2 FL (7.4-10.4); NEUT# 10.27 X1000 (1.4-6.5); NEUT% 85.7 % (42.2-75.2); PLT 192 X1000 (130-400); RBC 3.54 XMIL (4.2-5.4); RDW 17.4 % (11.5-14.5); WBC 11.98 X1000 (4.8-10.8)
[2018-10-05 09:05] LABS: INR 1.55; PROTIME 19.8 Seconds (11.0-16.0)
[2018-10-05 09:06] LABS: PTT 36.5 Seconds (22.3-41.8)
[2018-10-05 09:19] LABS: CALCIUM 8.5 mg/dL (8.8-10.2); CREATININE 2.1 mg/dL (0.5-0.9)
--- NOTE | 2018-10-05 09:20 | Diag Imaging Result Doc PS360 ---
EXAM: CHEST-PORTABLE 10/05/2018 HISTORY: pna TECHNIQUE: AP portable at 0910 COMMENT: There is even a greater degree of airlessness in the left lung than on 10/04/2018. The appearance of the right lung has not changed significantly since 10/03/2018. IMPRESSION: Complete atelectasis of the left lung presumably due to obstruction of the left mainstem bronchus, possibly by mucus plug. Electronically signed by Carlo Shelton 10/05/2018 9:16 AM
[2018-10-05 09:25] LABS: POTASSIUM 3.6 mmol/L (3.5-5.1)
--- NOTE | 2018-10-05 09:33 | PROGRESS NOTE ---
DATE: 10/05/2018 SUBJECTIVE: Patient reports having cough with secretions that she is not able to bring out. No chest pain. No difficulty in breathing. OBJECTIVE: Vital Signs: Temperature 98.0, heart rate 17, respiratory rate 20, blood pressure 117/75, O2 saturation 98% on 4 L nasal cannula. General: This is a morbidly obese 73-year-old female lying in bed, in no acute distress. HEENT: Head is normocephalic, atraumatic. Mucous membranes dry. Neck: No JVD noted. No carotid bruits. No lymphadenopathy. No thyromegaly. Cardiovascular: S1, S2 heard. Irregularly irregular heart rhythm. No murmurs, gallops, or rubs noted. Respiratory: Coarse breath sounds still present in both pulmonary bases. Patient is not using any accessory muscles or having work of breathing. Abdomen: Soft, nontender to palpation. No signs of peritoneal irritation. Bowel sounds present. No organomegaly. Extremities: No clubbing or cyanosis noted. Lower extremity edema noted in both lower extremities. Neurological: Patient alert and oriented x3. Moves 4 extremities. LABORATORY DATA: White cell count 11.98, hemoglobin 10.5, hematocrit 33.5, platelets 192,000. No BMP reported. ASSESSMENT AND PLAN: 1. Acute respiratory failure secondary to pneumonia. Patient is on Zosyn and Zyvox. Unfortunately, the blood pressure started going down, so she requiring vasopressors again. We will continue with breathing treatments. We are going to check an x-ray today and see how she does. We will check an ABG also today. Pulmonary is also following this patient. Apparently, the plan was to do bronchoscopy because this patient has a mucus plug in the left lung. But at this point, we will see what they are planning to do now. 2. Shock secondary to sepsis. As we mentioned before, we will have restarted vasopressors. Will continue with IV fluids. We will continue to monitor this patient. 3. Left upper lobe pneumonia. Patient will continue with antibiotics. As we mentioned above, we will continue to monitor. 4. Chronic kidney disease stage 3. Creatinine is at baseline. 5. Disposition. We will continue to monitor this patient here in the intensive care unit. The patient required vasopressors. We will continue to monitor. cc: Sebastien Scott MD
[2018-10-05] MEDS: TOPROL XL PO SCH (09:54)
[2018-10-05 10:55] LABS: LYMPHS 10 % (21-51); MONO 8 % (1-9); SEGS 82 % (42-75)
[2018-10-05] MEDS: PROTONIX IV SCH (16:30)
[2018-10-05] MEDS: ZOFRAN IV PRN (23:55)
[2018-10-06] MEDS: ZYVOX 600 MG/D5W 600 MG/300 ML IVPB IV SCH ×2 (02:51→15:09)
[2018-10-06] MEDS: ATROVENT NEB INH SCH ×4 (03:36→19:16)
[2018-10-06] MEDS: XOPENEX NEB INH SCH ×4 (03:36→19:16)
[2018-10-06] MEDS: ZOSYN 3.375 GM in NS 50 ML IV SCH ×3 (05:05→16:01)
[2018-10-06 05:12] LABS: BASO# 0.03 X1000 (0.0-0.2); BASO% 0.4 % (0.0-0.8); EOS# 0.09 X1000 (0.0-0.7); EOS% 1.3 % (0.0-10.0); HEMATOCRIT 31.9 % (37.0-47.0); HEMOGLOBIN 10.1 g/dL (12.0-16.0); LYMPH# 0.78 X1000 (1.2-3.4); LYMPH% 10.9 % (20.5-51.1); MCH 29.7 PG (27-31); MCHC 31.7 g/dL (33-37); MCV 93.8 FL (81-99); MONO# 0.81 X1000 (0.11-0.59); MONO% 11.3 % (1.7-9.3); MPV 10.9 FL (7.4-10.4); NEUT# 5.44 X1000 (1.4-6.5); NEUT% 76.1 % (42.2-75.2); PLT 156 X1000 (130-400); RDW 17.1 % (11.5-14.5); WBC 7.15 X1000 (4.8-10.8)
[2018-10-06 05:28] LABS: PROTIME 19.1 Seconds (11.0-16.0)
[2018-10-06 05:29] LABS: INR 1.49; PTT 37.5 Seconds (22.3-41.8)
[2018-10-06 05:42] LABS: CALCIUM 8.4 mg/dL (8.8-10.2); CREATININE 1.9 mg/dL (0.5-0.9); POTASSIUM 3.3 mmol/L (3.5-5.1)
[2018-10-06] MEDS: HUMULIN R (PARKWAY) SUBQ SCH ×4 (06:29→20:57)
--- NOTE | 2018-10-06 07:34 | Diag Imaging Result Doc PS360 ---
EXAM: CHEST-1 VIEW HISTORY: SOB TECHNIQUE: Portable chest single view COMPARISON: 10/05/2018 FINDINGS: There is complete opacification of the left hemithorax. This is similar to the prior exam. Pulmonary edema is present on the right. This is slightly more prominent. There is a left sided catheter and a left-sided pacemaker. These are unchanged. IMPRESSION: Worsening pulmonary edema. Electronically signed by Dimitrios Correia 10/06/2018 7:32 AM
[2018-10-06] MEDS: TOPROL XL PO SCH (09:44)
[2018-10-06] MEDS ORDERED: EPINEPHRINE ONE (10:16)
[2018-10-06] MEDS ORDERED: XYLOCAINE 2% VISCOUS ONE (10:16)
[2018-10-06] MEDS ORDERED: XYLOCAINE 2% ONE (10:16)
[2018-10-06] MEDS ORDERED: SODIUM CHLORIDE 0.9% 20 ML ONE (10:17)
[2018-10-06] MEDS ORDERED: DIPRIVAN 1% ONE (10:25)
--- NOTE | 2018-10-06 10:35 | PROGRESS NOTE ---
DATE: 10/06/2018 SUBJECTIVE: Patient reports feeling fine. Reports less cough. No chest pain. No difficulty in breathing. OBJECTIVE: Vital Signs: Temperature 97.1 degrees, heart rate 66, respiratory rate 19, blood pressure 116/51, O2 saturation 100% on 2 L nasal cannula. General Examination: This is a morbidly obese, 73-year-old, female lying in bed, in no acute distress. HEENT: Head is normocephalic and atraumatic. Neck: No JVD noted. No carotid bruits. No lymphadenopathy. No thyromegaly. Cardiovascular Examination: S1 and S2 heard. Irregularly irregular heart rhythm. No murmurs, gallops, or rubs. Respiratory Examination: Coarse breath sounds noted in both pulmonary bases. The patient is not using any accessory muscles or having work of breathing. Abdomen: Soft. A little bit distended. Nontender to palpation. No signs of peritoneal irritation. Bowel sounds present. No organomegaly. Extremities: No clubbing or cyanosis but lower extremity edema noted in both lower extremities. Neurological Examination: The patient is alert and oriented x3. Moves 4 extremities. Laboratory Data: White cell count 7.15, hemoglobin 10.1, hematocrit 31.9, platelets 156,000. INR 1.49. Creatinine 1.9, potassium 3.3. ASSESSMENT AND PLAN: 1. Acute respiratory failure secondary to pneumonia. Patient is on Zyvox and Zosyn. Since last night at 11 p.m., the patient was not given any Levophed. At this point, I think we will proceed with a bronchoscopy that was initially scheduled for yesterday by Dr. Dickerson but it was canceled because of the patient being on vasopressors. At this point, we will continue checking arterial blood gases daily. We will see what that procedure shows. Apparently, there has been a mucus plug in the left lung. 2. Septic shock secondary to pneumonia. The patient is not requiring any vasopressors. We are going to monitor this patient closely in the intensive care unit. 3. Left upper lobe pneumonia, with the patient on antibiotics as above. 4. Chronic kidney disease stage 3. Creatinine is at baseline. We will continue with the same management. 5. Disposition. We will continue to monitor this patient in the intensive care unit. cc: Sebastien Scott MD
[2018-10-06] MEDS ORDERED: MUCOMYST 20% ONE (11:23)
[2018-10-06] MEDS: MUCOMYST 20% INH SCH ×2 (11:26→19:15)
--- NOTE | 2018-10-06 12:02 | Diag Imaging Result Doc PS360 ---
EXAM: CHEST-PORTABLE HISTORY: POST BRONCHOSCOPY TECHNIQUE: Chest single view COMPARISON: 5:22 AM FINDINGS: There continues to be complete opacification of the left hemithorax. There is pulmonary edema on the right. No right pleural effusion. There is a left pacemaker. IMPRESSION: No interval change. Electronically signed by Dimitrios Correia 10/06/2018 12:01 PM
--- NOTE | 2018-10-06 12:03 | OPERATIVE NOTE ---
PROCEDURE DATE: ORDERING PHYSICIAN: Sebastien Scott MD PROCEDURE: Bronchoscopy. INDICATION: Atelectasis, pneumonia and mucus plugging. DETAILS OF OPERATION: Consent obtained. Conscious sedation administered by Anesthesia Department. Local anesthesia with lidocaine spray and jelly. Right nostril approached. Normal vocal cord movements. All major segments visualized. There is left mainstem mucous plugging, thick secretion, and we cleared those and then there is left upper lobe and left lower lobe mucous plugging. We cleared those. I was able to visualize segments of the left lower lobe, but visibility was very hard for the left upper lobe. I did not see any suspicious tumor, but again, visibility was limited on the left upper lobe. We took washings and we ordered a chest x-ray post procedure for follow up. We did use diluted Mucomyst in left upper lobe and left lower lobe. There was minimal bleeding of less than 5 mL, but to prevent further bleeding, we did use diluted epinephrine, and by that time, we thought there was no active bleeding. IMPRESSION: Left mucous plugging, atelectasis and pneumonia. Awaiting cytology and microbiology results. Follow-up chest x-ray is requested. cc: MD Sebastien Michelle MD
[2018-10-06] MEDS: LASIX IV SCH ×2 (12:10→23:06)
[2018-10-06] MEDS: PROTONIX IV SCH (16:24)
[2018-10-06] MEDS: ADVAIR 250/50 DISKUS INH SCH (19:15)
[2018-10-06] MEDS: FERROUS SULFATE PO SCH (20:42)
[2018-10-06] MEDS: PEPCID PO SCH (20:42)
[2018-10-06] MEDS: LIPITOR PO SCH (20:43)
[2018-10-07] MEDS: ZOSYN 3.375 GM in NS 50 ML IV SCH ×5 (00:13→22:38)
[2018-10-07] MEDS: XOPENEX NEB INH SCH ×4 (03:01→21:40)
[2018-10-07] MEDS: ATROVENT NEB INH SCH ×4 (03:01→21:40)
[2018-10-07] MEDS: ZYVOX 600 MG/D5W 600 MG/300 ML IVPB IV SCH ×2 (03:13→15:04)
[2018-10-07] MEDS: MORPHINE IV PRN ×2 (03:16→22:26)
[2018-10-07] MEDS: HUMULIN R (PARKWAY) SUBQ SCH ×4 (06:32→22:25)
[2018-10-07] MEDS: ADVAIR 250/50 DISKUS INH SCH ×2 (08:18→19:45)
[2018-10-07] MEDS: MUCOMYST 20% INH SCH ×2 (08:18→21:40)
[2018-10-07] MEDS ORDERED: CATHFLO IV ONE (08:53)
[2018-10-07] MEDS ORDERED: STERILE WATER INJ. INJ ONE (08:53)
[2018-10-07] MEDS: PEPCID PO SCH ×2 (09:06→22:24)
--- NOTE | 2018-10-07 09:35 | PROGRESS NOTE ---
DATE: 10/07/2018 OVERNIGHT EVENTS: The patient underwent bronchoscopy yesterday in which she was found to have mucous plugging off left main stem bronchus and left upper and lower lobe bronchus as well. She tolerated the procedure well. No other acute overnight events. SUBJECTIVE: She is denying any chest pain or shortness of breath. She is still coughing up. She denies nausea, vomiting, or abdominal pain. VITAL SIGNS: Currently, temperature 97.1 degrees, pulse 70, blood pressure 130/56. Overnight, she did have low mean arterial pressure readings in the 60s on multiple occasions. Input and output, she is negative 600 mL to date. LABORATORY DATA: No CBC or BMP today. MICROBIOLOGY: Bronchial washings are pending. IMAGING STUDIES: No chest x-ray has been done. I will get a chest x-ray today. ASSESSMENT AND PLAN: 1. Acute respiratory failure secondary to left upper lobe pneumonia. Continue intravenous Zyvox and Zosyn. Follow up with final results of bronchoscopy washings. Pulmonology is on board. She is now status post removal of mucous plugs from left side upper lobe and left side lower lobe mucous plugging. Follow up with chest x-ray. 2. Septic shock from left upper lobe pneumonia. Continue intravenous antibiotics. Apparently, she is not on intravenous norepinephrine. She was ordered for intravenous phenylephrine. Her blood pressures are still soft. I will continue to monitor in the intensive care unit and we will start her on norepinephrine if required. 3. Acute kidney injury on chronic kidney disease stage 3 on presentation, now appears to be improving. 4. History of chronic atrial fibrillation and sick sinus syndrome, status post pacemaker. Currently rate well-controlled. Continue patient on metoprolol. I will restart anticoagulation tomorrow if her blood counts are stable post bronchoscopy. At home, she was taking Xarelto. 5. Other. Continue atorvastatin for hyperlipidemia, famotidine for gastroesophageal reflux disease, and ferrous sulfate for iron deficiency. Continue to encourage incentive spirometer. 6. Acute pulmonary edema based on chest x-ray. She is currently on intravenous Lasix. Depending on her course, I would titrate it down. DISPOSITION: More than 30 minutes of critical care time was spent in taking care of this patient. Plan of care was discussed with the patient and all of her questions have been answered adequately. cc: Ramiro Vaughn MD
[2018-10-07 09:50] LABS: BASO# 0.03 X1000 (0.0-0.2); BASO% 0.4 % (0.0-0.8); EOS# 0.15 X1000 (0.0-0.7); HEMATOCRIT 34.1 % (37.0-47.0); HEMOGLOBIN 10.7 g/dL (12.0-16.0); IMM GRAN# 0.02 X1000 (0.0-0.04); IMM GRAN% 0.3 % (0.0-0.5); LYMPH# 0.73 X1000 (1.2-3.4); LYMPH% 9.8 % (20.5-51.1); MCH 29.7 PG (27-31); MCHC 31.4 g/dL (33-37); MCV 94.7 FL (81-99); MONO# 0.97 X1000 (0.11-0.59); MONO% 13.1 % (1.7-9.3); NEUT# 5.52 X1000 (1.4-6.5); NEUT% 74.4 % (42.2-75.2); PLT 135 X1000 (130-400); RDW 16.9 % (11.5-14.5); WBC 7.42 X1000 (4.8-10.8)
--- NOTE | 2018-10-07 10:03 | Diag Imaging Result Doc PS360 ---
EXAM: CHEST-PORTABLE 10/07/2018 HISTORY: dyspnea TECHNIQUE: AP portable at 0950 COMMENT: There is complete opacification of the left lung. The appearance of the chest has generally not changed significantly since 10/06/2018. IMPRESSION: Complete atelectasis of the left lung. Electronically signed by Carlo Shelton 10/07/2018 10:00 AM
[2018-10-07 10:19] LABS: CALCIUM 8.5 mg/dL (8.8-10.2); CREATININE 2.1 mg/dL (0.5-0.9); POTASSIUM 3.8 mmol/L (3.5-5.1)
[2018-10-07] MEDS: TOPROL XL PO SCH (10:20)
[2018-10-07] MEDS: LASIX IV SCH (10:38)
[2018-10-07] MEDS: PROTONIX IV SCH (17:08)
[2018-10-07] MEDS: SODIUM CHLORIDE 0.9% INJ SCH (17:08)
[2018-10-07] MEDS: LIPITOR PO SCH (22:25)
[2018-10-07] MEDS: FERROUS SULFATE PO SCH (22:25)
[2018-10-08] MEDS: ZYVOX 600 MG/D5W 600 MG/300 ML IVPB IV SCH ×2 (02:25→15:18)
[2018-10-08] MEDS: ZOSYN 3.375 GM in NS 50 ML IV SCH ×4 (05:28→23:27)
[2018-10-08] MEDS: XOPENEX NEB INH SCH ×4 (06:06→19:09)
[2018-10-08] MEDS: ATROVENT NEB INH SCH ×4 (06:06→19:09)
[2018-10-08 06:36] LABS: BASO# 0.01 X1000 (0.0-0.2); BASO% 0.2 % (0.0-0.8); EOS# 0.18 X1000 (0.0-0.7); HEMATOCRIT 30.8 % (37.0-47.0); HEMOGLOBIN 9.8 g/dL (12.0-16.0); LYMPH# 0.56 X1000 (1.2-3.4); LYMPH% 9.3 % (20.5-51.1); MCH 29.5 PG (27-31); MCHC 31.8 g/dL (33-37); MCV 92.8 FL (81-99); MONO# 0.72 X1000 (0.11-0.59); MPV 10.7 FL (7.4-10.4); NEUT# 4.55 X1000 (1.4-6.5); NEUT% 75.5 % (42.2-75.2); PLT 129 X1000 (130-400); RBC 3.32 XMIL (4.2-5.4); RDW 16.6 % (11.5-14.5); WBC 6.02 X1000 (4.8-10.8)
[2018-10-08 06:57] LABS: CALCIUM 8.3 mg/dL (8.8-10.2); CREATININE 2.2 mg/dL (0.5-0.9); POTASSIUM 3.3 mmol/L (3.5-5.1)
[2018-10-08] MEDS ORDERED: TOPROL XL PO SCH (09:00)
[2018-10-08] MEDS: HUMULIN R (PARKWAY) SUBQ SCH (10:29)
[2018-10-08] MEDS: LOPRESSOR PO SCH ×2 (10:30→20:09)
[2018-10-08] MEDS: PEPCID PO SCH ×2 (10:31→20:09)
[2018-10-08] MEDS: MUCOMYST 20% INH SCH ×2 (11:49→19:09)
[2018-10-08] MEDS: ADVAIR 250/50 DISKUS INH SCH ×2 (11:49→19:08)
[2018-10-08] MEDS ORDERED: XARELTO PO SCH (12:00)
[2018-10-08] MEDS: KLOR-CON PO SCH ×2 (12:53→17:33)
--- NOTE | 2018-10-08 14:10 | PROGRESS NOTE ---
DATE: 10/08/2018 INTERVAL HISTORY: The patient was transferred from ICU to medical-surgical floor. However, I was not aware of transfer orders, though. Overnight she maintained her blood pressure mostly in acceptable range. She did not have any other acute overnight events. Her vitals were unremarkable. SUBJECTIVE: She is feeling much better today. She is denying chest pain or shortness of breath. She is denying nausea, vomiting, abdominal pain. She has urine catheter. We discussed about taking it out. We discussed about persistent opacity in the left lung, and that we are waiting for lung doctor evaluation. VITAL SIGNS: Currently, temperature 97.8 degrees, pulse 76, blood pressure 115/ 60, respiratory rate of 16. Oxygen saturation 100% on 1 L nasal cannula. PHYSICAL EXAMINATION: General: Appears morbidly obese, not in any acute distress. HEENT: Oral cavity is moist. Respiratory: Air entry decreased on left hemithorax as compared to right. No wheeze, rhonchi, or crackles. Cardiovascular: S1, S2 normal. No murmur, rub, or gallop. Abdomen: Obese, soft, nontender. She has urine catheter. No lower extremity edema. Neurologic: Alert and oriented x3. LABS: 1. Today suggestive of hemoglobin of 9.8, platelet of 129. BMP suggestive of hypokalemia being repleted. 2. Chronic kidney disease stage III to stage IV. MICROBIOLOGY: no new data. Previously, bronchial washing was positive for yeast. ASSESSMENT AND PLAN: 1. Acute hypoxic respiratory failure secondary to left upper lobe pneumonia. Continue intravenous Zyvox and intravenous Zosyn for a total of 7 days. My plan is to discontinue intravenous antibiotic after today since her white blood count has normalized. I appreciate Pulmonology recommendation. 2. Left lung mucous plugging with collapse, status post bronchoscopy and removal of mucous plugs. Currently, she continues to have entire left lung opacity. Continue acetylcysteine, incentive spirometry and physical activity Appreciate Pulmonology recommendation if she would need further bronchoscopic intervention in the future. 3. Septic shock from left upper lobe pneumonia, now resolved. Plan is to stop antibiotics after tonight. 4. Acute kidney injury on chronic kidney disease stage IV, now improving. The patient currently appears to be at her baseline, chronic kidney disease stage IV . 5. History of chronic atrial fibrillation and sick sinus syndrome status post pacemaker, currently rate controlled. I would decrease metoprolol dose with holding parameters considering her hypotension which is likely related to drug use. Restart anticoagulation with Lovenox (anticipating possible bronchoscopic eval in future ) I might consider changing it to Eliquis rather than Xarelto based on her kidney function in the future. 6. Hypotension likely related to drug use, poor p.o. intake and general debility. I will adjust antihypertensive medication as tolerated. Later on, I will add her home Lasix as tolerated. 7. Others: Continue atorvastatin for hyperlipidemia, famotidine for gastroesophageal reflux disease, ferrous sulfate for iron deficiency. 8. Disposition: Patient remains on medical floor. Plan of care was discussed with her. All of her questions were answered. I also called patient's sister, who is surrogate decision maker, and I answered all of her questions. I will also remove Flynn catheter today. cc: Ramiro Vaughn MD MTDD
--- NOTE | 2018-10-08 14:31 | Diag Imaging Result Doc PS360 ---
CHEST-PORTABLE - 10/08/2018 INDICATION: Follow up left lung collapse COMPARISON: 10/07/2018 FINDINGS: There is stable complete opacification of the left lung. Stable pacemaker. Stable infiltrate throughout the right lung centrally. IMPRESSION: No change from prior. Electronically signed by Reji Trejo 10/08/2018 2:29 PM
[2018-10-08] MEDS: PROTONIX IV SCH (17:33)
[2018-10-08] MEDS: SODIUM CHLORIDE 0.9% INJ SCH (17:33)
[2018-10-08] MEDS: FERROUS SULFATE PO SCH (20:09)
[2018-10-08] MEDS: LIPITOR PO SCH (20:09)
[2018-10-09] MEDS: ZYVOX 600 MG/D5W 600 MG/300 ML IVPB IV SCH (03:26)
[2018-10-09] MEDS: ATROVENT NEB INH SCH ×4 (03:40→21:56)
[2018-10-09] MEDS: XOPENEX NEB INH SCH ×4 (03:40→21:55)
[2018-10-09] MEDS: LOPRESSOR PO SCH ×4 (03:45→21:40)
--- NOTE | 2018-10-09 03:59 | PULMONOLOGY PROGRESS NOTE ---
DATE: 10/08/2018 SUBJECTIVE: The patient is awake and alert. She has a fair cough, which is with audible rhonchi. OBJECTIVE: Vital Signs: The patient has been afebrile for the last 24 hours. Blood pressure 102/45, heart rate 72, respiratory rate 16, oxygen saturation 100% on nasal cannula. HEENT: Pupils are equal and reactive. Oropharynx is clear. Neck: Supple. Chest: Reveals decreased breath sounds throughout the left base. Cardiac: S1-S2. Abdomen: Obese and soft. Extremities: Revealed trace edema. LABORATORIES: Chest x-ray reveals complete atelectasis of the left lung, which is unchanged over the last 5 days. Cultures from the bronchial washing require more incubation. IMPRESSION: A 73-year-old with complete atelectasis of the left lung, morbid obesity, acute hypoxemic respiratory failure, with possible pneumonia. Cultures are pending. RECOMMENDATIONS: 1. Continue bronchial hygiene. 2. Initiate trial of BiPAP. 3. Make sure the patient is getting out of bed as tolerated. cc: Ector Solis MD
[2018-10-09] MEDS: ZOSYN 3.375 GM in NS 50 ML IV SCH (05:04)
[2018-10-09 08:00] LABS: BASO# 0.01 X1000 (0.0-0.2); BASO% 0.2 % (0.0-0.8); EOS# 0.14 X1000 (0.0-0.7); EOS% 3.1 % (0.0-10.0); HEMATOCRIT 30.5 % (37.0-47.0); HEMOGLOBIN 9.8 g/dL (12.0-16.0); IMM GRAN# 0.02 X1000 (0.0-0.04); IMM GRAN% 0.4 % (0.0-0.5); LYMPH% 10.9 % (20.5-51.1); MCH 29.6 PG (27-31); MCHC 32.1 g/dL (33-37); MCV 92.1 FL (81-99); MONO# 0.54 X1000 (0.11-0.59); MONO% 11.8 % (1.7-9.3); MPV 10.5 FL (7.4-10.4); NEUT# 3.37 X1000 (1.4-6.5); NEUT% 73.6 % (42.2-75.2); PLT 109 X1000 (130-400); RBC 3.31 XMIL (4.2-5.4); RDW 16.4 % (11.5-14.5); WBC 4.58 X1000 (4.8-10.8)
[2018-10-09 08:19] LABS: CALCIUM 8.7 mg/dL (8.8-10.2); CREATININE 2.6 mg/dL (0.5-0.9); POTASSIUM 3.9 mmol/L (3.5-5.1)
[2018-10-09] MEDS: MUCOMYST 20% INH SCH ×2 (08:27→21:55)
[2018-10-09] MEDS: ADVAIR 250/50 DISKUS INH SCH ×2 (08:28→19:55)
[2018-10-09] MEDS: PEPCID PO SCH ×2 (09:36→21:41)
[2018-10-09] MEDS: LOVENOX SUBQ SCH (09:38)
[2018-10-09] MEDS ORDERED: LASIX PO SCH (11:00)
--- NOTE | 2018-10-09 11:27 | Diag Imaging Result Doc PS360 ---
CHEST-PORTABLE - 10/09/2018 INDICATION: atx COMPARISON: 10/08/2018 FINDINGS: Stable left sided pacemaker. Stable complete collapse of the left lung with opacification of the left hemithorax. There is minimal improvement in the central pulmonary edema throughout the right lung. No right-sided effusion. IMPRESSION: Minimal improvement in aeration of the right lung. Overall little change from prior. Electronically signed by Reji Trejo 10/09/2018 11:25 AM
[2018-10-09] MEDS: LASIX PO SCH (17:38)
[2018-10-09] MEDS: PROTONIX IV SCH (17:38)
[2018-10-09] MEDS: SODIUM CHLORIDE 0.9% INJ SCH (17:38)
--- NOTE | 2018-10-09 19:08 | PROGRESS NOTE ---
DATE: 10/09/2018 Interval history, no events overnight. Reviewing the vitals and confirmed with the patient I realized that the patient did not use BiPAP at nighttime and I have placed an order for that. Patient denies chest pain. She is now coughing up some sputum. Today morning she also had an episode of hemoptysis. I will keep a close eye over her blood counts. She only had 1 such episode and it was small amount. Denies feeling short of breath. I discussed with her about coming out of bed sit sitting in the chair. She stated physical therapy had evaluated her today and she was able to sit at the edge of the bed for some time. VITALS: Temperature 97.8 degrees, pulse 71, blood pressure 80/40, saturating 97% on 2 L nasal cannula. PHYSICAL EXAMINATION: General: Morbidly obese does not appear in any acute distress. Oral cavity is moist. Air entry is minimal on left hemithorax. Good air entry on right hemithorax without wheeze, rhonchi or crackles. S1, S2 normal. No murmur, rub, or gallop. Abdomen: Obese, soft, nontender. No urine catheter. No lower extremity edema. Neurologic: She is alert, oriented x3. LABS: Suggestive of hemoglobin of 9.8, stable electrolytes with resolution of hypokalemia, chronic kidney disease stage 4. Bronchial washings currently so far growing yeast. IMAGING: Chest x-ray suggests persistent atelectasis and collapse of left lung. ASSESSMENT AND PLAN: 1. Acute hypoxic respiratory failure secondary to left upper lobe pneumonia. I stopped intravenous Zosyn and Zyvox as she has completed total of 7 to 8 days course of antibiotics. 2. Left lung mucous plugging with collapse status post bronchoscopy and removal of nuchal plug on October 06. She still has persistent left lung collapse. Continue chest physical therapy, physical therapy out of bed, physical activity, started patient on BiPAP and continue bronchial hygiene. 3. Chronic kidney disease stage 4. Her acute kidney injury now has resolved, currently she appears to be at baseline. 4. Septic shock from left upper lobe pneumonia now resolved status post antibiotics. 5. History of chronic atrial fibrillation, sick sinus syndrome status post pacemaker currently rate in acceptable range, continue metoprolol at current dose and adjust dose according to her response. Continue anticoagulation with Lovenox, at the time of discharge I will consider starting her on Eliquis rather than her Xarelto considering fluctuating kidney function. 6. Hypotension related to drug use, poor p.o. intake and general debility currently in acceptable range, she is mentating well. Her kidney function appears to be in close to her baseline. 7. Continue atorvastatin for hyperlipidemia, famotidine for GERD, ferrous sulfate for iron deficiency anemia. 8. Disposition. Patient remains on medical floor. Plan of care were discussed with her. All of her questions have been answered. I called patient's sister who is a surrogate decision maker and answered all of her questions on 10/08/2018. cc: Ramiro Vaughn MD
[2018-10-09] MEDS: FERROUS SULFATE PO SCH (21:41)
[2018-10-09] MEDS: LIPITOR PO SCH (21:41)
[2018-10-09] MEDS: ZOFRAN IV PRN (23:55)
[2018-10-10] MEDS: ATROVENT NEB INH SCH ×4 (04:40→22:17)
[2018-10-10] MEDS: XOPENEX NEB INH SCH ×4 (04:40→22:16)
--- NOTE | 2018-10-10 07:03 | PULMONOLOGY PROGRESS NOTE ---
DATE: 10/09/2018 SUBJECTIVE: The patient is awake and alert. She is currently on BiPAP. She is having difficulty clearing secretions. OBJECTIVE: Vital Signs: The patient has been afebrile for the last 24 hours. Blood pressure 98/37, heart rate 88, respiratory rate 24, oxygen saturation 96%. HEENT: Pupils are equal and reactive. Oropharynx is clear but evaluation is limited. Neck: Supple. Chest: Reveals diminished breath sounds throughout the left lung. Cardiac Examination: Distant heart sounds. Normal S1, normal S2. Abdomen: Obese and soft. Extremities: Without edema. LABORATORIES: Chest x-ray reveals continued atelectasis in the left lung. IMPRESSION: A 73-year-old with complete atelectasis of the left lung, morbid obesity, acute hypoxemic respiratory failure, with possible pneumonia. Cultures are only revealing yeast. RECOMMENDATIONS: 1. Continue to cycle BiPAP as tolerated. 2. Continue aggressive bronchial hygiene. 3. Attempt to get the patient out of bed for mobilization and to promote bronchial hygiene. 4. Followup chest x-ray tomorrow morning. cc: Ector Solis MD
[2018-10-10] MEDS: MUCOMYST 20% INH SCH ×2 (07:38→22:16)
[2018-10-10] MEDS: ADVAIR 250/50 DISKUS INH SCH ×2 (07:39→19:16)
--- NOTE | 2018-10-10 07:56 | Diag Imaging Result Doc PS360 ---
CHEST-PORTABLE - 10/10/2018 INDICATION: Follow up lung collapse on left COMPARISON: 10/09/2018 FINDINGS: Stable left-sided pacemaker. Stable pulmonary vascular congestion of the right lung with probable mild pulmonary edema. No new infiltrates. Stable complete opacification of the left hemithorax. IMPRESSION: No change from prior. Electronically signed by Reji Trejo 10/10/2018 7:54 AM
[2018-10-10] MEDS: PEPCID PO SCH ×2 (09:36→22:01)
[2018-10-10] MEDS: LOVENOX SUBQ SCH (09:37)
[2018-10-10] MEDS: LOPRESSOR PO SCH ×2 (09:38→22:01)
--- NOTE | 2018-10-10 16:55 | PROGRESS NOTE ---
DATE: 10/10/2018 INTERVAL HISTORY: She used BiPAP at nighttime. No other acute events. SUBJECTIVE: Feels the same. Had 1 episode of small hemoptysis today morning. OBJECTIVE: Vital signs: Temperature 98.5 degrees, pulse 87, blood pressure 111/39, saturating 100% on O2 cannula. General: Appears morbidly obese, not in any acute distress. HEENT: Oral cavity moist. Lungs: Almost no air entry on left hemithorax. Adequate air entry on right hemithorax. Cardiovascular: S1, S2 normal. No murmur, rub, gallop. Abdomen: Obese, nontender. Neurological: Alert and oriented x3. DIAGNOSTIC STUDIES: Suggestive of stable hemoglobin, stable electrolytes, chronic kidney disease stage 4. Bronchial washings so far growing yeast. Chest x-ray suggests persistent atelectasis and collapse of left lung. ASSESSMENT AND PLAN: 1. Acute hypoxic respiratory failure due to left upper lobe pneumonia. 2. Left lung mucous plugging with collapse, status post bronchoscopy but persistent collapse. 3. Chronic kidney disease, stage 4. 4. Septic shock from left upper lobe pneumonia, now resolved. 5. History of chronic atrial fibrillation and sick sinus syndrome status post pacemaker, currently rate well controlled. 6. Hypotension related to drug use. 7. Hyperlipidemia. 8. Gastroesophageal reflux disease (GERD). 9. Iron deficiency anemia. PLAN: We will continue the patient on bronchial hygiene. We will cycle BiPAP and nasal cannula and start her on guaifenesin. I will decrease her enoxaparin dose for atrial fibrillation according to her weight. Otherwise we will continue her medication metoprolol for atrial fibrillation, atorvastatin for hyperlipidemia, famotidine for GERD, and iron sulfate for iron deficiency anemia. DISPOSITION: Patient remains inside the hospital for persistent left lung collapse. cc: Ramiro Vaughn MD
--- NOTE | 2018-10-10 18:18 | PROGRESS NOTE ---
DATE: 10/10/2018 INTERVAL HISTORY: No overnight events. She did have 1 episode of a small amount of blood in her sputum yesterday night. She has been coughing minimally. She has not been able to come out of bed yet. I discussed with the patient and nurse at bedside about trying to help her come out of bed, sit in the chair. I also discussed with the patient to keep on using BiPAP and promote physical activity. OBJECTIVE: Vital Signs: Temperature 98.3 degrees, pulse 87, blood pressure 92/43, saturating 100% on 2 L nasal cannula. She was intermittently on BiPAP. General: Morbidly obese, not in acute distress. HEENT: Oral cavity moist. Neck: Trachea is deviated towards the left. Respiratory: Air entry minimal in left hemithorax. Good air entry in the right hemithorax without wheeze, rhonchi, or crackles. Cardiovascular: S1, S2 normal. No murmur, rub, or gallop. Abdomen: Obese, soft, nontender. Extremities: No lower extremity edema. She has prominent swelling affecting left upper extremity associated with PICC line. Neurologic: She is alert and oriented x3. LABS: No CBC or BMP today. Her blood sugars have been within acceptable range. MICROBIOLOGY: Bronchial washing culture has been growing yeast without any AFB or other bacteria. IMAGING: Chest x-ray performed today suggests persistent left lung collapse. ASSESSMENT AND PLAN: 1. Acute hypoxic respiratory failure secondary to left upper lobe pneumonia, status post intravenous Zosyn and Zyvox for a 7 day course. She continues to require minimal amount of oxygen. 2. Left lung mucus plugging leading to collapse of the left lung, status post bronchoscopy and removal of mucus plug on October 06. She continues to have left lung collapse. Continue bronchial hygiene, guaifenesin, acetylcysteine, physical therapy, chest PT, and cycling of BiPAP. She does not appear in any acute respiratory distress at the moment. 3. Chronic kidney disease stage 4. On presentation she had AMBER on CKD 4, which has resolved. Follow up on BMP tomorrow. 4. Septic shock from left upper lobe pneumonia on presentation, now resolved. 5. History of chronic atrial fibrillation, sick sinus syndrome, status post pacemaker. Currently rate in acceptable range. Continue metoprolol. Continue anticoagulation with Lovenox. I changed her dose based on her weight and kidney function. At the time of discharge, I will consider Eliquis. 6. Hypotension related to drug use. Currently in acceptable range. Continue metoprolol. 7. Continue atorvastatin for hyperlipidemia, famotidine for GERD, ferrous sulfate for iron deficiency anemia. 8. Disposition. Patient remains on the medical floor. Plan of care was discussed with her. All of her questions have been answered. Previously, I had called the patient's sister, who is the surrogate decision maker, and answered all of her questions on October 08. cc: Ramiro Vaughn MD
--- NOTE | 2018-10-10 18:19 | PULMONOLOGY PROGRESS NOTE ---
DATE: 10/10/2018 SUBJECTIVE: The patient reports physical therapy sat her on the side of the bed yesterday, but she has not been out of the bed today. She was ambulating at home before this admission. OBJECTIVE: The patient has been afebrile for the last 24 hours. Blood pressure 111/39, heart rate 87, respiratory rate 20, oxygen saturation 100%.HEENT: Pupils are equal and reactive. Oropharynx is clear. Neck: Supple. Chest: Reveals diminished breath sounds left base. Cardiac: S1-S2. Abdomen: Soft and obese. Extremities: Without edema. LABORATORIES: Chest x-ray reveals continued atelectasis of the left lung. IMPRESSION: A 73-year-old with complete atelectasis of the left lung, hypoxemic respiratory failure, morbid obesity, acute hypoxemic respiratory failure. Cultures have only revealed yeast. The patient will need to be out the bed and in a chair to help with her bronchial hygiene. RECOMMENDATIONS: 1. Continue to cycle BiPAP at bedtime and p.r.n. 2. Continue bronchial hygiene. 3. Encourage staff to get patient out of bed to help promote bronchial hygiene. 4. Followup chest x-ray tomorrow morning. cc: Ector Solis MD
[2018-10-10] MEDS: LASIX PO SCH (18:32)
[2018-10-10] MEDS: BIDEX PO SCH (18:32)
[2018-10-10] MEDS: LIPITOR PO SCH (22:01)
[2018-10-10] MEDS: FERROUS SULFATE PO SCH (22:01)
[2018-10-10] MEDS: MORPHINE IV PRN (23:01)
[2018-10-11] MEDS: ATROVENT NEB INH SCH ×4 (03:42→22:19)
[2018-10-11] MEDS: XOPENEX NEB INH SCH ×4 (03:42→22:19)
[2018-10-11 06:57] LABS: BASO# 0.02 X1000 (0.0-0.2); BASO% 0.4 % (0.0-0.8); EOS# 0.16 X1000 (0.0-0.7); EOS% 3.5 % (0.0-10.0); HEMATOCRIT 28.8 % (37.0-47.0); HEMOGLOBIN 9.4 g/dL (12.0-16.0); LYMPH# 0.59 X1000 (1.2-3.4); MCH 29.8 PG (27-31); MCHC 32.6 g/dL (33-37); MCV 91.4 FL (81-99); MONO# 0.34 X1000 (0.11-0.59); MONO% 7.5 % (1.7-9.3); MPV 10.3 FL (7.4-10.4); NEUT# 3.42 X1000 (1.4-6.5); NEUT% 75.6 % (42.2-75.2); PLT 73 X1000 (130-400); RBC 3.15 XMIL (4.2-5.4); RDW 15.9 % (11.5-14.5); WBC 4.53 X1000 (4.8-10.8)
--- NOTE | 2018-10-11 06:57 | Diag Imaging Result Doc PS360 ---
EXAM: CHEST-PORTABLE HISTORY: abnormal exam TECHNIQUE: Portable chest single view COMPARISON: 10/10/2018 FINDINGS: There continues to be complete opacification of the left hemithorax. Pulmonary edema is present on the right. There is a left-sided pacemaker. No right pleural effusion identified. IMPRESSION: Stable chest. Electronically signed by Dimitrios Correia 10/11/2018 6:55 AM
[2018-10-11] MEDS ORDERED: PRILOSEC PO SCH (07:00)
[2018-10-11 07:04] LABS: CALCIUM 8.9 mg/dL (8.8-10.2); POTASSIUM 3.9 mmol/L (3.5-5.1)
[2018-10-11] MEDS: ADVAIR 250/50 DISKUS INH SCH ×2 (08:12→22:19)
[2018-10-11] MEDS: MUCOMYST 20% INH SCH ×2 (08:12→22:20)
[2018-10-11] MEDS: LOPRESSOR PO SCH ×2 (08:39→21:04)
[2018-10-11] MEDS: PEPCID PO SCH ×2 (08:39→21:04)
[2018-10-11] MEDS: LOVENOX SUBQ SCH (08:40)
[2018-10-11] MEDS: BIDEX PO SCH ×3 (08:40→18:27)
--- NOTE | 2018-10-11 17:29 | PROGRESS NOTE ---
DATE: 10/11/2018 Interval history. No acute overnight events. Patient says she has not been able to come out of bed today as she was getting ultrasound of her left arm and since then physical therapy has not evaluated the patient. By the time I saw the patient she continues to have left upper extremity swelling. She denies chest pain, shortness of breath. We discussed about importance physical activity, answered all of her questions. VITAL SIGNS: Currently temperature of 98.1 degrees, pulse 101, respiratory 15, blood pressure 103/47, saturating 99% on room air . PHYSICAL EXAMINATION: Morbidly obese not in any acute distress. Oral cavity moist. No air entry on left hemithorax. Adequate air entry on right hemithorax.Cardiovascular: S1, S2 normal. No murmur or gallop. Abdomen: Obese, nontender. Neurologic: Alert, oriented x3. Left upper extremity has significant swelling. LABS: Suggestive of no leukocytosis, stable hemoglobin, hematocrit, thrombocytopenia which is worse than 48 hours ago. He has elevation of BUN, creatinine. Microbiology no microbiological data except bronchial washing culture growing Haylee albicans which show suggest likely colonization, the suspicion of invasive fungal pneumonia is extremely low. ASSESSMENT AND PLAN: 1. Acute hypoxic respiratory failure secondary to left upper lobe pneumonia status post intravenous Zosyn and Zyvox 7 days she continues to require only minimal amount of oxygen, will wean her off as tolerated. 2. Left lung mucous plugging leading to collapse of left lung status post bronchoscopy and removal of mucus plug on October 06. Continue bronchial hygiene, guaifenesin, acetylcysteine, physical therapy, chest PT, cycling of nasal cannula and BiPAP. She is not in any distress. According to discussion with pulmonology she may require repeat bronchoscopy if she does not improve. 3. Acute kidney injury on chronic kidney disease stage 4, stop Lasix. Follow up with frequent BMP, this could be likely be related to Lasix use. 4. Acute deep vein thrombosis affecting left upper extremity. Continue enoxaparin 1 mg/kg once a day subcutaneously considering her renal function. 5. History of chronic atrial fibrillation, sick sinus syndrome status post pacemaker currently in acceptable range, continue metoprolol, anticoagulation with Lovenox, at the time of discharge it should be switched to Eliquis. 6. Septic shock from left upper lobe pneumonia on presentation resolved. 7. Hypotension related to drug use currently in acceptable range, continue metoprolol. 8. Others, continue atorvastatin for hyperlipidemia, famotidine for GERD, ferrous sulfate for iron deficiency anemia. 9. Thrombocytopenia. I will follow up with CBC tomorrow, no need of transfusion, patient has been complaining of hemoptysis however she is not in any acute distress. 10. Hemoptysis. Follow up with CBC, continue enoxaparin. She is not in respiratory compromise at the moment and her blood counts have been stable. Plan of care was discussed with her. All of her questions have been answered. Her hemoptysis episode is only once every day early in the morning where she notice few streaks of blood but denies big chunk of blood coming out . cc: Ramiro Vaughn MD
[2018-10-11] MEDS: FERROUS SULFATE PO SCH (21:04)
[2018-10-11] MEDS: LIPITOR PO SCH (21:04)
[2018-10-12] MEDS: ATROVENT NEB INH SCH ×5 (03:50→22:24)
[2018-10-12] MEDS: XOPENEX NEB INH SCH ×5 (03:51→22:24)
[2018-10-12] MEDS: BIDEX PO SCH ×3 (09:08→18:00)
[2018-10-12] MEDS: PEPCID PO SCH ×2 (09:08→19:53)
[2018-10-12] MEDS: LOPRESSOR PO SCH ×2 (09:08→19:53)
[2018-10-12] MEDS: LOVENOX SUBQ SCH (09:08)
[2018-10-12] MEDS: MUCOMYST 20% INH SCH ×2 (11:09→22:24)
[2018-10-12] MEDS: ADVAIR 250/50 DISKUS INH SCH ×2 (11:51→20:23)
--- NOTE | 2018-10-12 15:56 | PROGRESS NOTE ---
DATE: 10/12/2018 INTERVAL HISTORY: The patient had lost any IV access yesterday. Left PICC line was removed because of DVT, and the nursing team could not get external jugular vein. They did not stick the right arm considering patient's history of breast cancer and suspected lymph node dissection. SUBJECTIVE: The patient is feeling the same. She is sitting in the chair right now. She is denying any chest pain, shortness of breath. She states that she had lumpectomy which was initial stage about 15 years ago and 2 of her lymph nodes on the right chest were removed and they were negative. She denies any radical lymph node dissection where all the lymph nodes would be removed. We discussed about repeat bronchoscopy. I answered all of her questions. VITAL SIGNS: Currently, vital signs reveal temperature 98.1 degrees, pulse 85, blood pressure 120/40, saturating 100% on 2 to 3 L nasal cannula. PHYSICAL EXAMINATION: General: Not in any acute distress, morbidly obese. HEENT: Oral cavity moist. Respiratory: No air entry on left hemithorax. Adequate air entry on the right hemithorax. Cardiovascular: S1, S2 normal. No murmur or gallop. Abdomen: Obese, nontender. Neurologic: Alert, oriented x3. Extremities: Left upper extremity has significant swelling. LABS: New labs could not be drawn today considering she did not have an IV access. ASSESSMENT AND PLAN: 1. Acute hypoxic respiratory failure secondary to left upper lobe pneumonia, status post intravenous Zosyn and Zyvox for 7 days. She continues to require minimal amount of oxygen, and we will wean her off as tolerated. 2. Left lung mucous plugging also contributing to hypoxia due to leading to collapse of left lung status post bronchoscopy and removal of mucus plug on October 06. The patient to undergo repeat bronchoscopy on October 13 for persistent collapse. Continue bronchial hygiene, guaifenesin, acetylcysteine, physical therapy, chest PT, cycling of BiPAP and nasal cannula. She is not in any acute distress. 3. Acute kidney injury on chronic kidney disease stage IV. Lasix has been stopped. Follow up with [facility] once IV access has been obtained. 4. Acute DVT affecting left upper extremity and axillary vein as per the report given on phone. Official report is still pending. Continue patient on enoxaparin therapeutic dose. At the time of discharge, depending on kidney function, she might be become a candidate of Eliquis. 5. History of chronic atrial fibrillation, sick sinus syndrome status post pacemaker currently in acceptable range. Continue metoprolol. Anticoagulation with Lovenox. 6. Septic shock from left upper lobe pneumonia on presentation has resolved. 7. Hypotension related to drug use, currently in acceptable range. Continue metoprolol. 8. Continue atorvastatin for hyperlipidemia, famotidine for GERD, ferrous sulfate for iron deficiency anemia. 9. Thrombocytopenia. Follow up with complete blood count tomorrow. The patient denies any known active bleeding at the moment. 10. Hemoptysis. She does not have any more hemoptysis episodes today. However, she did have old chunk of blood coming out of the nose. She is hemodynamically stable. I will follow up with complete blood count. Plan of care was discussed with her. All of her questions have been answered. cc: Ramiro Vaughn MD
--- NOTE | 2018-10-12 16:29 | Diag Imaging Result Doc PS360 ---
EXAM: CHEST-PORTABLE HISTORY: verify central line placement TECHNIQUE: Chest COMPARISON: 10/11/2018 FINDINGS: Interval placement of a right jugular line. The tip overlies the right atrium. No pneumothorax. There is complete opacification of the left hemithorax similar to the prior study. Pulmonary edema is present in the right lung. Poor inspiratory effort. There is a left-sided pacemaker. IMPRESSION: No postprocedural pneumothorax. Electronically signed by Dimitrios Correia 10/12/2018 4:26 PM
[2018-10-12] MEDS: FERROUS SULFATE PO SCH (19:53)
[2018-10-12] MEDS: LIPITOR PO SCH (19:53)
[2018-10-12 20:03] LABS: BASO# 0.02 X1000 (0.0-0.2); BASO% 0.4 % (0.0-0.8); EOS% 1.8 % (0.0-10.0); HEMATOCRIT 26.8 % (37.0-47.0); HEMOGLOBIN 8.8 g/dL (12.0-16.0); LYMPH# 0.53 X1000 (1.2-3.4); LYMPH% 9.8 % (20.5-51.1); MCH 29.8 PG (27-31); MCHC 32.8 g/dL (33-37); MCV 90.8 FL (81-99); MONO% 5.5 % (1.7-9.3); MPV 11.3 FL (7.4-10.4); NEUT# 4.48 X1000 (1.4-6.5); NEUT% 82.5 % (42.2-75.2); PLT 55 X1000 (130-400); RBC 2.95 XMIL (4.2-5.4); RDW 15.3 % (11.5-14.5); WBC 5.43 X1000 (4.8-10.8)
[2018-10-12 20:07] LABS: INR 1.33; PROTIME 17.5 Seconds (11.0-16.0)
[2018-10-12 20:08] LABS: PTT 50.6 Seconds (22.3-41.8)
[2018-10-12 20:40] LABS: CALCIUM 8.2 mg/dL (8.8-10.2); CREATININE 3.5 mg/dL (0.5-0.9); POTASSIUM 3.7 mmol/L (3.5-5.1)
[2018-10-13] MEDS: FERROUS SULFATE PO SCH ×2 (00:55→21:25)
[2018-10-13] MEDS: PEPCID PO SCH ×3 (00:56→21:25)
[2018-10-13] MEDS: LIPITOR PO SCH ×2 (00:56→21:25)
[2018-10-13] MEDS: LOPRESSOR PO SCH ×3 (00:56→21:30)
[2018-10-13] MEDS: ATROVENT NEB INH SCH ×4 (04:20→21:16)
[2018-10-13] MEDS: XOPENEX NEB INH SCH ×4 (04:20→21:16)
[2018-10-13] MEDS: TYLENOL PO PRN ×2 (04:28→23:24)
[2018-10-13 06:34] LABS: BASO# 0.01 X1000 (0.0-0.2); BASO% 0.2 % (0.0-0.8); EOS# 0.12 X1000 (0.0-0.7); EOS% 2.8 % (0.0-10.0); HEMATOCRIT 26.7 % (37.0-47.0); HEMOGLOBIN 8.7 g/dL (12.0-16.0); LYMPH# 0.46 X1000 (1.2-3.4); LYMPH% 10.7 % (20.5-51.1); MCH 29.7 PG (27-31); MCHC 32.6 g/dL (33-37); MCV 91.1 FL (81-99); MONO# 0.27 X1000 (0.11-0.59); MONO% 6.3 % (1.7-9.3); MPV 11.4 FL (7.4-10.4); NEUT# 3.43 X1000 (1.4-6.5); PLT 55 X1000 (130-400); RBC 2.93 XMIL (4.2-5.4); RDW 15.3 % (11.5-14.5); WBC 4.29 X1000 (4.8-10.8)
[2018-10-13 06:56] LABS: CALCIUM 8.9 mg/dL (8.8-10.2); CREATININE 3.4 mg/dL (0.5-0.9); POTASSIUM 3.7 mmol/L (3.5-5.1)
--- NOTE | 2018-10-13 07:30 | Diag Imaging Result Doc PS360 ---
EXAM: CHEST-1 VIEW 10/13/2018 HISTORY: Follow up left lung collapse TECHNIQUE: AP portable at 0648 COMMENT: The inspiration is better than on the previous study of 10/12/2018 but there is increased interstitial opacity particularly in the parahilar region. There continues to be complete atelectasis of the left lung. IMPRESSION: Persistent left lung atelectasis, possibly due to obstruction of the main stem bronchus. Pulmonary edema. Electronically signed by Carlo Shelton 10/13/2018 7:28 AM
[2018-10-13] MEDS ORDERED: XYLOCAINE 2% ONE (10:03)
[2018-10-13] MEDS ORDERED: SODIUM CHLORIDE 0.9% 20 ML ONE ×2 (10:03→11:26)
[2018-10-13] MEDS ORDERED: XYLOCAINE 2% VISCOUS ONE (10:03)
[2018-10-13] MEDS ORDERED: EPINEPHRINE ONE ×2 (10:03→11:24)
[2018-10-13] MEDS ORDERED: DIPRIVAN 1% ONE ×2 (10:44→11:20)
[2018-10-13] MEDS ORDERED: MUCOMYST 20% ONE (10:44)
[2018-10-13] MEDS ORDERED: SODIUM CHLORIDE 0.9% 10 ML ONE (11:24)
--- NOTE | 2018-10-13 12:17 | Diag Imaging Result Doc PS360 ---
EXAM: CHEST-PORTABLE 10/13/2018 HISTORY: post bronch TECHNIQUE: AP portable upright chest at 1206 COMMENT: There continues to be near complete opacification and volume loss in the left lung. There is some slight pneumatization in the upper lobe which was not apparent on the previous study. The right lung is slightly better expanded and clearer than on the previous examination at 0648. IMPRESSION: Minimal improvement in atelectasis of the left lung. Improved pulmonary edema. Electronically signed by Carlo Shelton 10/13/2018 12:14 PM
--- NOTE | 2018-10-13 12:17 | OPERATIVE NOTE ---
PROCEDURE DATE: 10/13/2018 REFERRING PHYSICIAN: Ramiro Vaughn MD PROCEDURE: Second bronchoscopy. INDICATION: Mucous plugging with lung atelectasis and whiteout. DESCRIPTION OF PROCEDURE: Consent obtained. Conscious sedation administered by the Anesthesia Department. Fluoroscopy used for sampling guidance. Initially, we approached through the right nostril. Normal vocal cord movements. Major segments visualized. Significant left mainstem mucous plugs were cleared with suctioning and there is left medial mucous membrane inflammation and hypertrophy. Cannot rule out infiltration, but there is no specific definitive tumor. We suctioned also the left upper lobe and left lung lobe. Recurrent poor visualization with oozing of blood in low amount or little amounts, all total blood loss less than 10 mL. We used diluted epinephrine. Also sometimes visualization was so difficult, we had difficulty passing through the airway, so we placed an LMA at the second part of the procedure and went back for further visualization and suctioning. We did at some point on the first part of the procedure did do brushing of the inflamed parts of the mucous membranes of the left main stem. Eventually, there was no significant bleeding by the time we pulled the scope. We put in diluted epinephrine and diluted Mucomyst. The patient tolerated the procedure well. Chest x-ray requested. IMPRESSION: 1. Left lung atelectasis. 2. Left mainstem mucous. 3. Left mainstem mucous membrane inflammation and hypertrophy. Cannot rule out infiltration. PLAN: Awaiting cytology from washings and from brushings, and microbiology. cc: Melanie Dickerson MD
--- NOTE | 2018-10-13 12:28 | PROGRESS NOTE ---
DATE: 10/13/2018 OVERNIGHT EVENTS: The patient underwent placement of a right-sided internal jugular central venous line for intravenous access. She tolerated the procedure well. We discussed about getting that bronchoscopy done today. I answered all of her questions. CURRENT VITALS: Temperature of 97.4 degrees, pulse 78 per minute, respiratory rate of 16 per minute, blood pressure 124/53, saturating 100% on 3 L nasal cannula. PHYSICAL EXAMINATION: General: Does not appear in acute distress. Oral cavity: Moist. Appears morbidly obese. Lungs: No air entry on left hemithorax except left suprascapular region, where I could appreciate air entry. Good air entry without wheeze, rhonchi, crackles on right hemithorax. Trachea appears to have shifted towards the left. Cardiovascular: S1, S2 normal. No murmur, rub, or gallop. Abdomen: Obese, nontender. Mental status: Alert and oriented x3. Extremities: Left upper extremity swelling related to DVT. LAB: Suggestive of WBC of 4.2. She continues to have normocytic anemia and thrombocytopenia, hyponatremia, hypochloremia, chronic kidney disease stage 4 to stage 5, which appears to be at baseline. Microbiology: No new microbiological data. IMAGING: Chest x-ray today performed suggests persistent left lung atelectasis, likely due to left main stranding bronchus and pulmonary edema. ASSESSMENT AND PLAN: 1. Acute hypoxic respiratory failure secondary to left upper lobe pneumonia on admission status post intravenous Zosyn and Zyvox for 7 days. Continue oxygen to maintain saturation more than 94% and wean off as tolerated. 2. Left lung mucous plugging of likely mainstem bronchus contributing to hypoxia and leading to collapse of left lung status post bronchoscopy and removal of mucus plugs on October 06. The patient to undergo repeat bronchoscopy for removal of mucus plugs on October 13 of persistent collapse. Continue bronchial hygiene with guaifenesin, acetylcysteine inhaled, chest physical therapy, physical therapy, cycling of BiPAP and nasal cannula. She is not in any respiratory distress at the moment. 3. Chronic kidney disease stage 4 to stage 5. Lasix has been stopped. Continue to monitor kidney function. Currently appears to be at baseline. 4. Acute deep venous thrombosis affecting left upper extremity and axillary vein as per the report given on phone. Official report is still pending. Continue enoxaparin renally dosed. At the time of discharge, depending on kidney function, you would consider starting her on Eliquis. 5. History of chronic atrial fibrillation, sick sinus syndrome status post pacemaker, currently in acceptable range. Continue metoprolol. I will change anticoagulation from Lovenox to Eliquis at the time of discharge. At home, she was taking Xarelto. However, considering her persistent renal dysfunction, Xarelto may not be a good choice. 6. Thrombocytopenia of unclear etiology. I will consider ordering heparin-induced thrombocytopenia antibody and serotonin release assay. If he continues to get worse, I will involve Hematology. 7. Hypotension related to drug use, currently in acceptable range. Continue metoprolol. 8. Septic shock on presentation because of left upper lobe pneumonia, resolved. 9. Others. Continue atorvastatin for hyperlipidemia, famotidine for gastroesophageal reflux disease, ferrous sulfate for iron deficiency anemia. 10. Hemoptysis now resolved. No hemodynamically instability or significant drop in blood count. Her hemoptysis episodes were intermittent and it was small in amount. According to history, she has had 3 such episodes of hemoptysis of about less than 1 teaspoon of blood, which appears early in the morning time. Plan of care were discussed with her. All of her questions have been answered. cc: Ramiro Vaughn MD
[2018-10-13] MEDS: BIDEX PO SCH ×3 (13:42→18:03)
[2018-10-13] MEDS ORDERED: NS 500 ML ONE (13:47)
[2018-10-13] MEDS: MUCOMYST 20% INH SCH ×2 (15:48→21:16)
[2018-10-13] MEDS: ADVAIR 250/50 DISKUS INH SCH ×2 (15:49→21:16)
[2018-10-14] MEDS: XOPENEX NEB INH SCH ×4 (04:47→21:20)
[2018-10-14] MEDS: ATROVENT NEB INH SCH ×4 (04:47→21:20)
[2018-10-14 07:24] LABS: BASO# 0.01 X1000 (0.0-0.2); BASO% 0.3 % (0.0-0.8); HEMATOCRIT 25.7 % (37.0-47.0); HEMOGLOBIN 8.3 g/dL (12.0-16.0); LYMPH# 0.28 X1000 (1.2-3.4); LYMPH% 7.7 % (20.5-51.1); MCH 29.4 PG (27-31); MCHC 32.3 g/dL (33-37); MCV 91.1 FL (81-99); MONO# 0.08 X1000 (0.11-0.59); MONO% 2.2 % (1.7-9.3); MPV 11.4 FL (7.4-10.4); NEUT# 3.26 X1000 (1.4-6.5); NEUT% 89.8 % (42.2-75.2); PLT 62 X1000 (130-400); RBC 2.82 XMIL (4.2-5.4); RDW 15.1 % (11.5-14.5); WBC 3.63 X1000 (4.8-10.8)
[2018-10-14 07:39] LABS: LYMPHS 8 % (21-51); SEGS 92 % (42-75)
--- NOTE | 2018-10-14 08:39 | OPERATIVE NOTE ---
PROCEDURE DATE: 10/12/2018 PREOPERATIVE DIAGNOSES: 1. Poor peripheral venous access. 2. Deep vein thrombosis of left upper arm. POSTOPERATIVE DIAGNOSES: 1. Poor peripheral venous access. 2. Deep vein thrombosis of left upper arm. PROCEDURE: Insertion of central venous line with ultrasound guidance. SURGEON: Heber Henry MD. ESTIMATED BLOOD LOSS: Scant. FINDINGS: The right internal jugular vein was visualized with ultrasound. It was compressible, patent and without thrombus. TECHNIQUE: The patient was placed in supine Trendelenburg position. Her right neck was prepped and draped in usual sterile fashion. The right internal jugular vein was visualized with ultrasound. The skin over the vein was anesthetized with 1% lidocaine. A small incision was made with a knife. The vein was then accessed under ultrasound guidance with 1 stick. The wire passed through the needle easily. The needle was removed. The track was dilated and a triple-lumen central venous catheter was passed over the wire into the vein via the Seldinger technique. The wire was removed. The catheter was anchored to the skin with silk suture. All ports jeovany back blood easily and were flushed with saline easily. A sterile dressing was applied. There were no apparent complications. cc: Heber Henry MD [facility]
[2018-10-14] MEDS: BIDEX PO SCH ×3 (09:15→17:07)
[2018-10-14] MEDS: LOPRESSOR PO SCH ×2 (09:16→22:07)
[2018-10-14] MEDS: PEPCID PO SCH ×2 (09:16→22:08)
[2018-10-14] MEDS: MUCOMYST 20% INH SCH ×2 (11:35→21:20)
[2018-10-14] MEDS: ADVAIR 250/50 DISKUS INH SCH ×2 (11:35→21:20)
--- NOTE | 2018-10-14 15:46 | Extremity Venous Study ---
PROCEDURE NAME: Venous U/S Left Arm - 10/11/2018 ETHNOLOGY TEACHER: Saul. REQUESTING PHYSICIAN: Roderick. INDICATIONS: Edema in left arm with PICC line in place. FINDINGS: Deep and superficial veins of left upper extremity and neck were visualized. There is visualized thrombus with lack of compressibility in the left axillary vein. There is maintained flow. There is no evidence of superficial venous thrombosis noted distally. INTERPRETATION: Acute DVT left axillary vein. These results were called to Dr. Vaughn. cc: MD Fili Hartman CRNP
--- NOTE | 2018-10-14 19:20 | PROGRESS NOTE ---
DATE: 10/14/2018 SUBJECTIVE: Patient has no focal complaints. OBJECTIVE: Vital signs: Blood pressure is 98/36, heart rate of 98, respiratory rate 18, temperature 98.3 degrees, 100% on room air or 2 L. Lungs: Clear to auscultation, diminished somewhat at the bases. Gastrointestinal: Soft, nontender, nondistended. Bowel sounds are positive. Cardiovascular: Regular rate and rhythm. No murmurs, gallops, or rubs. DIAGNOSTIC STUDIES: White count 3, hemoglobin 8, hematocrit 25, platelets of 62,000. Sugar 173. PROBLEM LIST: 1. Acute hypoxic respiratory failure due to left upper lobe pneumonia. She had been on Zosyn and Zyvox. This has been for several days. Currently she is on nothing. I guess she has completed her antibiotic regimen. 2. Frequent mucus plugging. She has had bronchoscopies, 2 of them, and we are continuing to monitor. Left lung is still almost entirely collapsed, which is felt to be from the mucous plugging. Pulmonary is following, but continue to see how things are going. Clinically, she looks well. DISPOSITION: Pending her clinical status. It looks like there planning to do another bronchoscopy. They did a bronchoscopy yesterday and cleared out her lung. We will see what her films look like tomorrow. cc: Marcello Iglesias MD
[2018-10-14] MEDS: TYLENOL PO PRN (21:04)
[2018-10-14] MEDS: LIPITOR PO SCH (22:07)
[2018-10-14] MEDS: FERROUS SULFATE PO SCH (22:08)
[2018-10-15] MEDS: XOPENEX NEB INH SCH ×4 (03:25→19:30)
[2018-10-15] MEDS: ATROVENT NEB INH SCH ×4 (03:25→19:30)
--- NOTE | 2018-10-15 06:34 | Diag Imaging Result Doc PS360 ---
EXAM: CHEST-1 VIEW HISTORY: SOB TECHNIQUE: Portable chest COMPARISON: 10/13/2018 FINDINGS: There is still complete opacification of the left hemithorax. No change in the right jugular line. Poor inspiratory effort. Decreased pulmonary edema in the right lung. There are surgical clips in the right axilla and there is a left-sided pacemaker. IMPRESSION: Decreased pulmonary edema. Electronically signed by Dimitrios Correia 10/15/2018 6:32 AM
[2018-10-15 07:52] LABS: BASO# 0.01 X1000 (0.0-0.2); BASO% 0.2 % (0.0-0.8); EOS# 0.01 X1000 (0.0-0.7); EOS% 0.2 % (0.0-10.0); HEMATOCRIT 25.6 % (37.0-47.0); HEMOGLOBIN 8.4 g/dL (12.0-16.0); LYMPH# 0.41 X1000 (1.2-3.4); LYMPH% 9.4 % (20.5-51.1); MCH 29.6 PG (27-31); MCHC 32.8 g/dL (33-37); MCV 90.1 FL (81-99); MONO# 0.42 X1000 (0.11-0.59); MONO% 9.7 % (1.7-9.3); MPV 12.3 FL (7.4-10.4); NEUT% 80.5 % (42.2-75.2); PLT 60 X1000 (130-400); RBC 2.84 XMIL (4.2-5.4); RDW 15.1 % (11.5-14.5); WBC 4.35 X1000 (4.8-10.8)
[2018-10-15 08:12] LABS: CALCIUM 9.2 mg/dL (8.8-10.2); CREATININE 3.1 mg/dL (0.5-0.9); POTASSIUM 4.4 mmol/L (3.5-5.1)
[2018-10-15] MEDS: BIDEX PO SCH ×3 (08:36→17:24)
[2018-10-15] MEDS: LOPRESSOR PO SCH ×3 (08:36→20:15)
[2018-10-15] MEDS: PEPCID PO SCH ×2 (08:36→20:16)
[2018-10-15] MEDS: ARIXTRA SUBQ SCH (08:36)
[2018-10-15] MEDS: ADVAIR 250/50 DISKUS INH SCH ×2 (09:44→19:30)
[2018-10-15] MEDS: MUCOMYST 20% INH SCH ×2 (09:45→19:30)
[2018-10-15] MEDS: TYLENOL PO PRN (12:17)
[2018-10-15] MEDS ORDERED: DIFLUCAN 200 MG/NS 200 MG/100 ML IVPB IV ONE (18:17)
--- NOTE | 2018-10-15 18:57 | PROGRESS NOTE ---
DATE: 10/15/2018 SUBJECTIVE: Patient has no major complaints. Breathing is okay. She is complaining a little bit of left shoulder pain. OBJECTIVE: Blood pressure recorded here is 59/28, 86/17 was the last one, heart rate 81, respiratory rate 16, temperature 98 degrees and 100% on 2 L.Cardiovascular: Regular rate and rhythm. Pulmonary: Bilateral breath sounds. Clear to auscultation. GI: Diminished at the left base. GI was soft, nontender, and nondistended. Bowel sounds are positive. LABORATORY: White count 4, hemoglobin and hematocrit 8 and 25, and platelets of 60,000. BUN and creatinine is 71 and 3.1. Hepatitis induced platelet antibody was negative. PROBLEM LIST: 1. Acute hypoxic respiratory failure due to pneumonia which now she has left hemithorax opacification due to mucus plugging versus possible obstruction. She had been on Zosyn and Zyvox, but she is off antibiotics but she still has complete opacification of her left lung. She has had 2 bronchoscopies, and it is still not able to be cleared. She is on significant amount of Mucomyst and pulmonary toilet. I have added IPPB today, and chest percussive therapy to see if we can try to knock or open up the airway. She did not come in with this process. She went in acute respiratory failure on the , which was almost 2 weeks ago. Her x-ray then showed airspace disease on the left side, but not opacification. After her respiratory event, she had near-complete completely opacification and has pretty much been unchanged since then. It is unclear at this point if she actually has a mass. She had a CT scan done on the which showed atelectasis versus pneumonia with mucous plugging, but it is unable to be relieved by bronchoscopy. We will see if these measures make a difference and follow up tomorrow with chest x-ray. Her bronchial washings have had Haylee albicans, which I am not sure if that may just be a contaminant but it is worth treating. I am just going to give her some Diflucan and see if that makes any difference. Typically, that is usually felt to be a contaminant or colonizer. 2. Mucous plugging. Again, we will continue treatments as described, positive pressure ventilation, and we will continue to follow. 3. Chronic renal failure stage 4 to 5. Kidney function is stable. We will continue to monitor. Diuretic has been discontinued. 4. DVT of the left axillary vein. She is currently on anticoagulation. 5. Atrial fibrillation. She is rate controlled. She is on anticoagulation. 6. Thrombocytopenia is progressing. She had an HIT antibody ordered which was negative, and I guess I repeated it, but the first one on the was negative. Her platelets have not improved, have improved a little bit, but not drastically. I think it would be reasonable to try to get a Hematology evaluation. DISPOSITION: Just waiting on her clinical status. We will continue to follow. cc: Marcello Iglesias MD
[2018-10-15] MEDS: LIPITOR PO SCH (20:16)
[2018-10-15] MEDS: FERROUS SULFATE PO SCH (20:16)
[2018-10-15] MEDS: ZOFRAN IV PRN (22:06)
[2018-10-16] MEDS: XOPENEX NEB INH SCH ×4 (03:30→21:15)
[2018-10-16] MEDS: ATROVENT NEB INH SCH ×4 (03:30→21:15)
[2018-10-16] MEDS: ZOFRAN IV PRN (06:05)
--- NOTE | 2018-10-16 06:34 | Diag Imaging Result Doc PS360 ---
EXAM: CHEST-PORTABLE HISTORY: dyspnea TECHNIQUE: Chest single view COMPARISON: 10/15/2018 FINDINGS: There continues to be complete opacification of the left hemithorax. Right lung is slightly better expanded on the current exam. Pulmonary edema remains. There is a left-sided pacemaker as well as a right jugular catheter. No pneumothorax. IMPRESSION: Improved expansion of the right lung. Electronically signed by Dimitrios Correia 10/16/2018 6:31 AM
[2018-10-16 06:39] LABS: BASO# 0.02 X1000 (0.0-0.2); BASO% 0.4 % (0.0-0.8); EOS# 0.05 X1000 (0.0-0.7); HEMATOCRIT 26.1 % (37.0-47.0); HEMOGLOBIN 8.5 g/dL (12.0-16.0); LYMPH# 0.66 X1000 (1.2-3.4); MCH 29.3 PG (27-31); MCHC 32.6 g/dL (33-37); MONO# 0.73 X1000 (0.11-0.59); MONO% 14.4 % (1.7-9.3); NEUT# 3.62 X1000 (1.4-6.5); NEUT% 71.2 % (42.2-75.2); PLT 58 X1000 (130-400); RDW 15.2 % (11.5-14.5); WBC 5.08 X1000 (4.8-10.8)
[2018-10-16 06:51] LABS: CALCIUM 8.8 mg/dL (8.8-10.2); CREATININE 2.7 mg/dL (0.5-0.9); POTASSIUM 4.1 mmol/L (3.5-5.1)
[2018-10-16] MEDS: MUCOMYST 20% INH SCH ×2 (10:26→21:20)
[2018-10-16] MEDS: ADVAIR 250/50 DISKUS INH SCH ×2 (10:27→19:20)
[2018-10-16] MEDS: LOPRESSOR PO SCH ×2 (11:08→21:20)
[2018-10-16] MEDS: PEPCID PO SCH ×2 (11:08→19:59)
[2018-10-16] MEDS: BIDEX PO SCH ×3 (11:08→21:59)
[2018-10-16] MEDS: ARIXTRA SUBQ SCH (11:11)
[2018-10-16] MEDS: DIFLUCAN 100 MG/NS 100 MG/50 ML IVPB IV SCH (17:54)
--- NOTE | 2018-10-16 19:18 | PROGRESS NOTE ---
DATE: 10/16/2018 SUBJECTIVE: Patient has no focal complaints. OBJECTIVE: Vital Signs: Blood pressure is 97/51, heart rate is 77, respiratory rate 18, temperature 97.5, 100% on 60%. Cardiovascular: Regular rate and rhythm. Pulmonary: No breath sounds on the left. No rhonchi, wheezing on the right. GI: Soft, nontender, nondistended. Bowel sounds are positive. LABORATORY DATA: White count 5, hemoglobin and hematocrit 8 and 26, platelets down to 58. Creatinine is 2.7. PROBLEM LIST: 1. Acute hypoxic respiratory failure with loss of left lung. She had pneumonia to begin with so this is not a new issue. It is unclear if she has underlying malignancy. Nothing can be detected, but she has had 2 bronchoscopies and we cannot open up her airway. I am not sure at some point if we may need to get Cardiothoracic opinion. 2. Mucus plugging. We will continue treatments, but she is not really responding that well. 3. Chronic renal failure. She is stage 4. Continue to monitor. 4. Left axillary vein deep vein thrombosis. She is currently on anticoagulation with Arixtra. We had to stop heparin because of her thrombocytopenia. 5. Atrial fibrillation, she is rate controlled. Anticoagulated. 6. Thrombocytopenia. Is progressing and really have an unclear source. HIT was ruled out. She is not clearly on any medicines that would lower her issues. 7. There was question of fungal pneumonia so we put her on fluconazole, but I think that is a bit of a stretch. Yeast is usually considered to be a contaminant and I will discuss with Dr. Dickerson, surgeon arch cushion skiving machine operator about thoracic options because it is very difficult to proceed with planning for discharge with her pneumonia still not responding. cc: Marcello Iglesias MD
--- NOTE | 2018-10-16 19:36 | HEMO/ONC CONSULTATION ---
DATE: 10/20/2018 CHIEF COMPLAINT: Evaluation and management of the patient's thrombocytopenia. HISTORY OF PRESENT ILLNESS: Ms. Ruiz if a 73-year-old female who came in through the emergency department on 10/01/2018 due to a small bowel obstruction, nausea and vomiting. Since being admitted, patient has developed pneumonia and has had a couple of bronchoscopies for mucus plugging. The patient also had a chest CTA that showed some pleural effusions and cardiomegaly. Patient has also developed a left axillary DVT. Since being admitted, platelets have gone from 173 down to 58,000. PAST MEDICAL HISTORY: Chronic kidney disease stage 3, atrial fibrillation, bradycardia, hyperlipidemia, hypertension, iron deficiency anemia, COPD, diabetes mellitus type 2, breast cancer, and morbid obesity. PAST SURGICAL HISTORY: Right mastectomy, , permanent pacemaker. SOCIAL HISTORY: Quit smoking approximately 30 years ago. Denies any alcohol or illicit drug use. FAMILY HISTORY: Noncontributory. ALLERGIES: To Macrodantin. HOME MEDICATIONS: Atorvastatin, Coreg, famotidine, ferrous sulfate, Advair, Lasix, [place] 7.5, hydroxyzine, irbesartan, potassium chloride, and Xarelto. REVIEW OF SYSTEMS: Noted in the HPI PHYSICAL EXAMINATION: Vital Signs: Temperature 97.5 degrees, heart rate 78, respiratory rate 21, blood pressure 96/51, saturation 99% on high-flow nasal cannula. General: Patient is awake, lying in bed. No acute distress noted. HEENT: Anicteric. Pupils PERRLA. Mucous membranes dry. Neck: Supple. Trachea midline. No JVD. No evidence of any palpable lymphadenopathy. Cardiovascular: S1, S2. Regular rate and rhythm. Chest: Bilateral breath sounds diminished bilaterally. Abdomen: Soft, nontender, nondistended. Bowel sounds present in all 4 quadrants. Skin: Warm, dry, and intact. LABORATORY DATA: White count 5.08, hemoglobin 8.5, hematocrit 26.1, platelets 58,000. Potassium 4.1, BUN 80, creatinine 2.7. HIT antibody negative. ASSESSMENT AND PLAN: 1. Thrombocytopenia: The patient continues to have no signs of bleeding. Most likely this is caused by peripheral consumption due to her acute illness. Further lab work has been ordered for further evaluation. We will continue to monitor at this time. Continue Arixtra as well. 2. Acute hypoxic respiratory failure due to pneumonia: Continue recommendations per primary medical team and pulmonology. 3. Chronic renal failure: Continue management per primary medical team. 4. Deep venous thrombosis of the left axillary vein: Continue Arixtra as ordered. Plan discussed with Dr. Leonard. Dictated by DAVID Flannery for Wade Leonard MD cc: DAVID Flannery MD [facility]
[2018-10-16] MEDS: LIPITOR PO SCH (19:59)
[2018-10-16] MEDS: FERROUS SULFATE PO SCH (19:59)
[2018-10-17] MEDS: XOPENEX NEB INH SCH ×4 (03:20→21:10)
[2018-10-17] MEDS: ATROVENT NEB INH SCH ×4 (03:20→21:10)
[2018-10-17 06:42] LABS: BASO# 0.02 X1000 (0.0-0.2); BASO% 0.5 % (0.0-0.8); EOS# 0.06 X1000 (0.0-0.7); EOS% 1.4 % (0.0-10.0); HEMATOCRIT 24.6 % (37.0-47.0); HEMOGLOBIN 8.1 g/dL (12.0-16.0); LYMPH# 0.58 X1000 (1.2-3.4); LYMPH% 13.8 % (20.5-51.1); MCH 29.9 PG (27-31); MCHC 32.9 g/dL (33-37); MCV 90.8 FL (81-99); MONO# 0.96 X1000 (0.11-0.59); MONO% 22.9 % (1.7-9.3); NEUT# 2.58 X1000 (1.4-6.5); NEUT% 61.4 % (42.2-75.2); PLT 44 X1000 (130-400); RBC 2.71 XMIL (4.2-5.4); RDW 15.2 % (11.5-14.5)
[2018-10-17 07:07] LABS: CALCIUM 8.9 mg/dL (8.8-10.2); CREATININE 2.7 mg/dL (0.5-0.9); POTASSIUM 3.9 mmol/L (3.5-5.1)
[2018-10-17 07:17] LABS: LYMPHS 22 % (21-51); MONO 14 % (1-9); SEGS 64 % (42-75)
--- NOTE | 2018-10-17 07:59 | GENERAL SURGERY CONSULTATION ---
DATE: 10/17/2018 HISTORY OF PRESENT ILLNESS: Ms. Ruiz was admitted with GI tract symptoms but was discovered to have a left-sided pneumonia. Her chest x-ray on 10/02/2018 showed ventilation of her left lung. By 10/03/2018, it was starting to cloud. Her chest CT on 10/03/2018 showed poor aeration of her left lung. She has undergone bronchoscopy x2, showing poor visualization and thick mucus plugging from the left side. She has been receiving Mucomyst treatments as well as positive-pressure ventilation breathing. The patient is a nonsmoker. The most recent bronchoscopy brushings and washings were accomplished. Visualization of the left side has been poor at both bronchoscopies. OTHER MEDICAL PROBLEMS: Include stage 3 kidney disease, type 2 diabetes, atrial fibrillation. She has had a pacemaker, hypertension, hyperlipidemia, iron-deficiency anemia, morbid obesity, a history of breast cancer, and most recently some mild thrombocytopenia. PAST SURGICAL HISTORY: Previous surgeries include a right mastectomy, section, and a pacemaker. SOCIAL HISTORY: She denies alcohol use. She denies smoking for the past 30 years. FAMILY HISTORY: Noncontributory. MEDICATIONS: Listed. ALLERGIES: Include Macrodantin. REVIEW OF SYSTEMS: As noted above. PHYSICAL EXAMINATION: Vital Signs: She is afebrile. Heart rate 88, respiratory rate 20, blood pressure 107/42. Neck: No cervical adenopathy. Respiratory: She has breath sounds on the right but none on the left. Abdomen: Soft and nontender. Breasts: She has an absent right breast. Extremities: Trace peripheral edema. Neurologic: She is awake and alert. Answers questions appropriately. DIAGNOSTICS/LABS: White count is 4200, hemoglobin 8.1, hematocrit 24. BUN 78, creatinine 2.7. ASSESSMENT: Recurrent left lung atelectasis. PLAN: I do not think there is any operative intervention indicated at this time. She did have aeration in her lung on the chest x-ray upon admission but then lost it. No doubt, the inflammation, swelling, and mucus plugging are preventing adequate evacuation of the mucus from her left lung. I do not think any operative intervention is indicated unless her washings and brushings prove positive for malignancy. We will simply follow along. cc: Chuy Choe MD
[2018-10-17] MEDS: LOPRESSOR PO SCH ×2 (08:34→20:19)
[2018-10-17] MEDS: BIDEX PO SCH ×3 (08:34→17:01)
[2018-10-17] MEDS: ARIXTRA SUBQ SCH (08:37)
--- NOTE | 2018-10-17 08:39 | Diag Imaging Result Doc PS360 ---
EXAM: CHEST-PORTABLE - 10/17/2018 HISTORY: dyspnea TECHNIQUE: Portable chest COMPARISON: 10/16/2018 FINDINGS: The left hemithorax is completely opacified, with some associated volume loss, similar to prior. There are some vascular congestion on the right similar to prior. There is no pneumothorax identified. Central venous catheter remains in place. IMPRESSION: Complete opacification of left hemithorax, with associated volume loss, similar to prior. Electronically signed by Aldo Colby 10/17/2018 8:36 AM
[2018-10-17] MEDS: ADVAIR 250/50 DISKUS INH SCH ×2 (09:21→20:53)
[2018-10-17] MEDS: MUCOMYST 20% INH SCH ×2 (09:22→20:53)
[2018-10-17] MEDS: PEPCID PO SCH ×2 (10:21→20:43)
--- NOTE | 2018-10-17 13:09 | HEMO/ONC PROGRESS NOTE ---
DATE: 10/17/2018 SUBJECTIVE: Patient is lying in bed. She reports that her shortness of breath is at baseline. She denies any bleeding issues. Her left arm used to be swollen with DVT but reports that the swelling has almost gone back to normal. PHYSICAL EXAMINATION: Vital Signs: Temperature 98.6 degrees, pulse 84, blood pressure 99/30. HEENT: Eyes EOMI, PERRLA. Anicteric. Mucous membranes appear moist. Cardiac Examination: Regular rate and rhythm. Normal S1 and S2. Chest: Reveals no breath sounds on the left side. No wheezing or rhonchi otherwise. Abdomen: Protuberant, soft, nontender, without hepatosplenomegaly or masses. Neurological: Alert and oriented. Moving all 4 extremities. LABORATORY DATA: White count 4.3, hemoglobin 8.1, hematocrit 24, MCV 90, platelets 44,000, MPV 12.3. BUN 78, creatinine 2.7. HIV antibody negative. CT scan: Without splenomegaly. B12 1847, folate 4.9. ASSESSMENT AND PLAN: 1. Thrombocytopenia: Blood smear was reviewed. Thrombocytopenia is noted. She has a large platelets. I suspect this is most likely peripheral destruction either due to drugs or immune mediated. She was on Zosyn and Zyvox which have been discontinued at this time. Continue supportive care with transfusions as needed. Discussed with Dr. Iglesias. 2. Deep venous thrombosis, left axillary vein: Her swelling has significantly improved. Thrombocytopenia is worsening. This is a tough situation. If platelet counts are less than 50,000, plan for a prophylactic dose of Lovenox or Arixtra. If platelet count is over 50,000, consider full doses. Discussed with Dr. Iglesias. 3. Respiratory failure due to pneumonia: Further management per primary team. 4. Chronic renal insufficiency: Creatinine is stable. cc: Wade Leonard MD
[2018-10-17] MEDS ORDERED: NS 250 ML IV ONE (15:14)
--- NOTE | 2018-10-17 16:17 | PROGRESS NOTE ---
DATE: 10/17/2018 SUBJECTIVE: The patient has no focal complaints. OBJECTIVE: Vital Signs: Blood pressure 91/27, heart rate 85, respiratory rate 16, temperature 98.3 degrees, 100% on room air. Cardiovascular: Regular rate and rhythm. Pulmonary: Bilateral breath sounds clear to auscultation. GI: Soft, nontender, nondistended. Bowel sounds were positive. Laboratory Data: White count is 4, hemoglobin and hematocrit 8 and 24, platelets of 44,000. Basic was normal except creatinine 2.7. CEA was mildly elevated at 7.5. Folate was low at 4.9. PROBLEM LIST: 1. Acute hypoxic respiratory failure with left hemithorax opacification. She has pneumonia and severe mucus plugging which is causing most of the issues. It is possible she has a malignancy but we cannot open up her left lung. She has had two bronchoscopies. Dr. Choe has evaluated her, feels like there is maybe nothing extra to do at this point. I am just going to touch base with the cardiothoracic surgeons in [place], as not sure if maybe another bronchoscopy, rigid bronchoscopy which will be difficult in her because she is thrombocytopenic, but just to help open up her airway because I feel like this issue will not be resolved prior to discharge if this is not addressed. 2. Mucus plugging. We will continue treatment. She is on Mucomyst, breathing treatments, IPPB, percussive chest physiotherapy, and her lung is still suellen out on the left side. 3. Chronic renal failure stage 4. 4. Left axillary deep venous thrombosis. I have discussed it at length with Dr. Leonard. He feels Lovenox is appropriate. Arixtra is acceptable as well. There is more cost associated. She does not have heparin-induced thrombocytopenia. We actually checked the antibody twice and it was negative both times. 5. Atrial fibrillation. She is anticoagulated. He recommended low-dose anticoagulation, just 40 a day. 6. Thrombocytopenia, but she actually has pancytopenia. She does have folate deficiency so we are supplementing that and we will monitor her platelet count. 7. Possible fungal pneumonia. She is on fluconazole, although typically yeast is felt to be a contaminant. 8. Disposition, pending clinical status. Just not sure what else we can do. I am still concerned overall that she is overall not going to improve as far as her status until all treatments are completed. cc: Marcello Iglesias MD Addendum: I spoke to , Dr Colby, CT surgery, who did not feel he could offer other therapy but was not able to review the films, additionally, I spoke to Grant, pulmonology; who did not feel he could do anything else and would not accept the patient in transfer unless he spoke to pulmonary here. I then spoke to Dr. Dickerson again and he felt he would reevaluate the patient for bronchoscopy again; due to the position of the plug in the RASHAUN and the pt's thrombocytopenia , which is progressing it will be difficult to manage the opening of her lung MTDD
[2018-10-17] MEDS: FOLIC ACID 1 MG in NS 50 ML IV SCH (17:24)
[2018-10-17] MEDS: DIFLUCAN 100 MG/NS 100 MG/50 ML IVPB IV SCH (18:10)
[2018-10-17] MEDS ORDERED: ARIXTRA SUBQ SCH (19:00)
[2018-10-17] MEDS: FERROUS SULFATE PO SCH (20:43)
[2018-10-17] MEDS: LIPITOR PO SCH (20:43)
[2018-10-18] MEDS: XOPENEX NEB INH SCH ×4 (03:20→22:50)
[2018-10-18] MEDS: ATROVENT NEB INH SCH ×4 (03:20→22:50)
[2018-10-18 06:50] LABS: BASO# 0.01 X1000 (0.0-0.2); BASO% 0.2 % (0.0-0.8); EOS# 0.09 X1000 (0.0-0.7); HEMOGLOBIN 8.1 g/dL (12.0-16.0); IMM GRAN# 0.02 X1000 (0.0-0.04); IMM GRAN% 0.4 % (0.0-0.5); LYMPH# 0.54 X1000 (1.2-3.4); LYMPH% 11.9 % (20.5-51.1); MCH 29.3 PG (27-31); MCHC 32.4 g/dL (33-37); MCV 90.6 FL (81-99); MONO# 1.37 X1000 (0.11-0.59); MONO% 30.2 % (1.7-9.3); NEUT# 2.51 X1000 (1.4-6.5); NEUT% 55.3 % (42.2-75.2); PLT 46 X1000 (130-400); RBC 2.76 XMIL (4.2-5.4); RDW 15.2 % (11.5-14.5); WBC 4.54 X1000 (4.8-10.8)
[2018-10-18 07:18] LABS: CALCIUM 9.1 mg/dL (8.8-10.2); CREATININE 2.4 mg/dL (0.5-0.9); POTASSIUM 4.1 mmol/L (3.5-5.1)
--- NOTE | 2018-10-18 07:19 | Diag Imaging Result Doc PS360 ---
EXAM: CHEST-PORTABLE INDICATION: dyspnea TECHNIQUE: One view COMPARISON: 10/17/2018 FINDINGS: Right central line is in stable position. There is stable complete opacification of the left hemithorax. Mild pulmonary venous congestion on the right is essentially stable. No new consolidation is identified. Cardiac silhouette is stable. IMPRESSION: Stable chest. Electronically signed by Daquan Sharp 10/18/2018 7:17 AM
[2018-10-18 07:32] LABS: EOS 2 % (1-10); LYMPHS 14 % (21-51); MONO 19 % (1-9); SEGS 65 % (42-75)
[2018-10-18] MEDS: PEPCID PO SCH ×2 (09:43→21:59)
[2018-10-18] MEDS: BIDEX PO SCH ×3 (09:43→17:28)
[2018-10-18] MEDS: LOPRESSOR PO SCH (09:44)
[2018-10-18] MEDS: LOVENOX SUBQ SCH (09:44)
[2018-10-18] MEDS: MUCOMYST 20% INH SCH ×2 (10:43→22:50)
[2018-10-18] MEDS: ADVAIR 250/50 DISKUS INH SCH ×2 (10:44→22:50)
--- NOTE | 2018-10-18 12:42 | PROGRESS NOTE ---
DATE: 10/18/2018 SUBJECTIVE: This morning, Ms. Ruiz referred to be doing a little better. She was sitting up in a chair, still on the high flow, and was eating her lunch. OBJECTIVE: Vital Signs: Blood pressure was 102/67, pulse is 80, respirations 18, temperature is 98.1 degrees. General: Ms. Ruiz is a 73-year-old female. She was sitting up in a chair on high-flow oxygen. HEENT: Mucosa is pink and moist. Anicteric. Acyanotic. She did not seem to be in any distress. Chest: Air entry was bilaterally reduced, more so to the left posterior lung field. Some crackles posteriorly in both lungs. Cardiovascular: Regular rate and rhythm. There are no murmurs, no rubs, no gallops. Abdomen: Soft. Bowel sounds were present. Extremities: Trace pedal edema. MAORI LIAISON ADVISER: The patient is awake, alert, and oriented. LABORATORY DATA: WBC is 5.54, hemoglobin is 8.1, platelet count of 46,000. Chemistry is also reviewed. Creatinine is down to 2.4. MEDICATIONS: The patient's current medications have all been reviewed, includin. Atorvastatin 20 mg daily. 2. Lovenox 40 mg subcutaneously every 24 hours. 3. Famotidine 20 mg b.i.d. 4. Iron sulfate 325 p.o. daily. 5. Fluconazole 100 mg daily. 6. Folic acid. 7. Guaifenesin. 8. Metoprolol 12.5 b.i.d. 9. Arixtra has been discontinued. IMAGING: Chest x-ray this morning shows complete opacification of the left hemithorax. ASSESSMENT: 1. Acute hypoxemic respiratory failure secondary to left lung collapse. The patient is currently on high-flow. 2. Massive left lung atelectasis secondary to mucus plugging. The patient is status post bronchoscopy twice. Will continue with chest physical therapy and recommendations from Pulmonary Medicine. 3. Chronic kidney disease stage IIIB to IV, noted. 4. Left axillary deep venous thrombosis. 5. History of atrial fibrillation, currently rate controlled. 6. Pancytopenia with more remarkable low platelet count. Hematology/Oncology is on board. 7. Haylee albicans positive in the bronchial washing, suspicious for Haylee pneumonia. The patient is currently on antifungal. DISPOSITION: Ms. Ruiz, as I understand, has a bed available at [facility]. However, I do not think they will take patients on high-flow oxygen. We will therefore see if she will qualify to go to an LTAC instead. cc: Hossein Grijalva MD
[2018-10-18] MEDS: FOLIC ACID 1 MG in NS 50 ML IV SCH (17:27)
[2018-10-18] MEDS: DIFLUCAN 100 MG/NS 100 MG/50 ML IVPB IV SCH (18:06)
[2018-10-18] MEDS: FERROUS SULFATE PO SCH (21:59)
[2018-10-18] MEDS: LIPITOR PO SCH (21:59)
[2018-10-19] MEDS: ATROVENT NEB INH SCH ×4 (03:25→23:00)
[2018-10-19] MEDS: XOPENEX NEB INH SCH ×4 (03:25→23:00)
[2018-10-19] MEDS: LOPRESSOR PO SCH ×3 (04:11→22:40)
--- NOTE | 2018-10-19 06:34 | Diag Imaging Result Doc PS360 ---
EXAM: CHEST-PORTABLE HISTORY: dyspnea TECHNIQUE: Portable chest single view COMPARISON: 10/18/2018 FINDINGS: There is opacification of left hemithorax similar to the prior exam. There is a left-sided pacemaker. Mild pulmonary edema in the right lung. No consolidation on the right. The appearance of the chest is similar to the prior study. IMPRESSION: Stable exam. Electronically signed by Dimitrios Correia 10/19/2018 6:31 AM
[2018-10-19] MEDS: PEPCID PO SCH ×2 (08:39→22:40)
[2018-10-19] MEDS: LOVENOX SUBQ SCH (08:39)
[2018-10-19] MEDS: BIDEX PO SCH ×3 (08:39→17:09)
[2018-10-19 08:50] LABS: BASO# 0.03 X1000 (0.0-0.2); BASO% 0.6 % (0.0-0.8); EOS# 0.13 X1000 (0.0-0.7); EOS% 2.6 % (0.0-10.0); HEMATOCRIT 24.1 % (37.0-47.0); HEMOGLOBIN 7.7 g/dL (12.0-16.0); LYMPH# 0.83 X1000 (1.2-3.4); LYMPH% 16.4 % (20.5-51.1); MCH 29.1 PG (27-31); MCV 90.9 FL (81-99); MONO# 0.92 X1000 (0.11-0.59); MONO% 18.2 % (1.7-9.3); NEUT# 3.14 X1000 (1.4-6.5); NEUT% 62.2 % (42.2-75.2); PLT 46 X1000 (130-400); RBC 2.65 XMIL (4.2-5.4); RDW 15.4 % (11.5-14.5); WBC 5.05 X1000 (4.8-10.8)
[2018-10-19 08:56] LABS: LARGE PLATELETS 1+; LYMPHS 10 % (21-51); MONO 16 % (1-9); SEGS 74 % (42-75)
[2018-10-19 09:04] LABS: CALCIUM 8.9 mg/dL (8.8-10.2); CREATININE 1.9 mg/dL (0.5-0.9)
[2018-10-19] MEDS: ADVAIR 250/50 DISKUS INH SCH ×2 (09:38→23:00)
[2018-10-19] MEDS: MUCOMYST 20% INH SCH ×2 (09:38→23:00)
[2018-10-19] MEDS ORDERED: NS 0 ML ONE (15:55)
[2018-10-19] MEDS: FOLIC ACID 1 MG in NS 50 ML IV SCH (17:09)
[2018-10-19] MEDS: DIFLUCAN 100 MG/NS 100 MG/50 ML IVPB IV SCH (18:06)
--- NOTE | 2018-10-19 18:41 | PROGRESS NOTE ---
DATE: 10/19/2018 SUBJECTIVE: She is sitting up eating. She is on high-flow O2. OBJECTIVE: Blood pressure is 125/52, heart rate 64, respiratory rate 22, temperature 98.7 degrees, 90% on 40%. Cardiovascular: Regular rate and rhythm. Pulmonary: Bilateral breath sounds, just absent or very diminished on the left side. GI: Soft, nontender, nondistended. Bowel sounds are positive. LABORATORY DATA: White count 5, hemoglobin 7 and 24, platelets of 46,000. BUN and creatinine of 56 and 1.9. PROBLEM LIST: 1. Acute hypoxic respiratory failure secondary to pneumonia and left lung collapse reportedly due to mucus plugging, which has been persistent despite 2 bronchoscopies and standard treatment for excessive mucus and mucus plugging. I greatly appreciate Dr. Dickerson's intervention. Again, he is going to try again to see if we can open up that airway. I have called [facility]; (1) there are no beds. They are on diversions except for ST-elevation myocardial infarction. (2) No provider was really interested in assisting on the case. [facility] is also on diversion. 2. Left mucus plugging. She is on Mucomyst, she is on nebulizers. She is on intermittent positive pressure ventilation. She is on chest physiotherapy. Pulmonary is following. 3. Left axillary deep venous thrombosis. She is on low-dose Lovenox, which I think will need to be held. 4. Thrombocytopenia has been relatively stable, but I think we may go ahead and give her some platelets. It looks like she has been transfused a dose per Dr. Dickerson. 5. Pancytopenia related to multiple issues. 6. Haylee albicans. We are treating her with fluconazole, and we really have not had much improvement, but we will continue to follow. DISPOSITION: I agree with Dr. Grijalva. I think we will have to progress towards LTAC. Clinically she is overall stable, it is just a relatively difficult situation. cc: Marcello Iglesias MD
[2018-10-19] MEDS: MUCINEX PO SCH (22:39)
[2018-10-19] MEDS: LIPITOR PO SCH (22:39)
[2018-10-19] MEDS: FERROUS SULFATE PO SCH (22:40)
[2018-10-20] MEDS: ATROVENT NEB INH SCH ×4 (04:01→20:23)
[2018-10-20] MEDS: XOPENEX NEB INH SCH ×4 (04:01→20:23)
[2018-10-20 06:19] LABS: BASO# 0.01 X1000 (0.0-0.2); BASO% 0.2 % (0.0-0.8); EOS# 0.14 X1000 (0.0-0.7); EOS% 3.3 % (0.0-10.0); HEMATOCRIT 23.5 % (37.0-47.0); HEMOGLOBIN 7.4 g/dL (12.0-16.0); LYMPH# 0.66 X1000 (1.2-3.4); LYMPH% 15.6 % (20.5-51.1); MCH 28.7 PG (27-31); MCHC 31.5 g/dL (33-37); MCV 91.1 FL (81-99); MONO# 0.95 X1000 (0.11-0.59); MONO% 22.5 % (1.7-9.3); MPV 12.5 FL (7.4-10.4); NEUT# 2.46 X1000 (1.4-6.5); NEUT% 58.4 % (42.2-75.2); PLT 94 X1000 (130-400); RBC 2.58 XMIL (4.2-5.4); RDW 15.3 % (11.5-14.5); WBC 4.22 X1000 (4.8-10.8)
[2018-10-20 06:35] LABS: CALCIUM 8.7 mg/dL (8.8-10.2); CREATININE 1.9 mg/dL (0.5-0.9)
--- NOTE | 2018-10-20 06:57 | Diag Imaging Result Doc PS360 ---
CHEST-PORTABLE - 10/20/2018 INDICATION: dyspnea COMPARISON: 10/19/2018 FINDINGS: Stable complete opacification of the left hemithorax. Stable right central line. Stable left-sided pacemaker. The right lung remains clear. IMPRESSION: No change from prior. Electronically signed by Reji Trejo 10/20/2018 6:54 AM
[2018-10-20 07:05] LABS: EOS 3 % (1-10); LYMPHS 13 % (21-51); MONO 18 % (1-9); SEGS 66 % (42-75)
[2018-10-20] MEDS: ADVAIR 250/50 DISKUS INH SCH ×2 (09:30→20:22)
[2018-10-20] MEDS: MUCOMYST 20% INH SCH ×2 (09:30→20:23)
[2018-10-20] MEDS: LOPRESSOR PO SCH ×2 (10:16→21:13)
[2018-10-20] MEDS: PEPCID PO SCH ×2 (10:17→21:10)
[2018-10-20] MEDS: MUCINEX PO SCH ×2 (10:17→21:10)
[2018-10-20] MEDS ORDERED: EPINEPHRINE ONE (10:41)
[2018-10-20] MEDS ORDERED: XYLOCAINE 2% VISCOUS ONE (10:42)
[2018-10-20] MEDS ORDERED: SODIUM CHLORIDE 0.9% 20 ML ONE (10:42)
[2018-10-20] MEDS ORDERED: DIPRIVAN 1% ONE ×2 (11:04→11:12)
[2018-10-20] MEDS ORDERED: XYLOCAINE-MPF 2% ONE (11:10)
[2018-10-20] MEDS ORDERED: ROBINUL ONE (11:10)
[2018-10-20] MEDS ORDERED: SODIUM CHLORIDE 0.9% 10 ML ONE (13:32)
[2018-10-20] MEDS ORDERED: NEO-SYNEPHRINE ONE (13:32)
[2018-10-20] MEDS ORDERED: MUCOMYST 20% ONE (13:32)
[2018-10-20] MEDS: BREVIBLOC ONE ×2 (13:58→14:00)
--- NOTE | 2018-10-20 14:00 | Diag Imaging Result Doc PS360 ---
CHEST-PORTABLE - 10/20/2018 1:48 PM INDICATION: post bronch COMPARISON: 6:00 AM FINDINGS: There is a stable right central line. Stable left pacemaker. Stable complete opacification of the left hemithorax. No pneumothorax. IMPRESSION: No change from prior. Electronically signed by Reji Trejo 10/20/2018 1:58 PM
--- NOTE | 2018-10-20 14:02 | EKG Report ---
Test Performed on : 10/20/2018 1:51:53 PM Test Reason : afib w/rvr Blood Pressure : / mmHG Vent. Rate : 133 BPM Atrial Rate : 163 BPM P-R Int : 000 ms QRS Dur : 086 ms QT Int : 312 ms P-R-T Axes : 000 123 -71 degrees QTc Int : 464 ms Atrial fibrillation. with rapid ventricular response. with premature ventricular or aberrantly conduc foreign complexes. Left posterior fascicular block Nonspecific ST and T wave abnormality Abnormal ECG When compared with ECG of 01-OCT-2018 19:42, (Unconfirmed) Previous ECG has undetermined rhythm, needs review T wave inversion now evident in Inferior leads Nonspecific T wave abnormality, improved in Lateral leads Confirmed by Gonzalez HERNÁNDEZ, Pierre Rocha ([id number]) on 10/21/2018 7:02:18 AM
[2018-10-20] MEDS: XYLOCAINE 2% ONE ×4 (14:13→17:20)
--- NOTE | 2018-10-20 14:14 | OPERATIVE NOTE ---
PROCEDURE DATE: 10/20/2018 REFERRING PHYSICIAN: Dr. Iglesias. PROCEDURE: Bronchoscopy for a third time. INDICATION: Left lung white out, not clearing with previous 2 bronchoscopies despite aggressive suctioning and Mucomyst instillation and the fact that visibility so hard given oozing mucous plug and the fact that she is thrombocytopenic with platelets for the procedure , and we hold anticoagulation which she is getting for DVT. Consent obtained. Conscious sedation administered by Anesthesia Department. Fluoroscopy scanning used for sampling and guidance. While she was on LMA, we passed the scope that major segments of the right visualized, left main stem is visualized deep at the bifurcation of left upper and left lower that was so obscured and so tricky I could not recognize the upper and the lower part, except after aggressive suctioning and aggressive instillation of local diluted epinephrine to prevent oozing and clearing of blood clots and finally was seen what we have seen before as possible inflammatory infiltration of the mucous membranes. It was more obvious to be likely a tumor blocking at the bifurcation of the left upper/left lower segments. We took brushings, endobronchial and transbronchial biopsies from the area with fluoroscopy scanning. Fluoroscopy scanning showed no post pneumothorax; however, an official chest x-ray is requested. Total blood loss was less than 20 mL, and the patient tolerated the procedure well. IMPRESSION: 1. Left lung whiteout. 2. Mucous plugging. 3. 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 Again, the tumor showed like possible inflammatory infiltration before, but highly obscured with oozing and mucous plug and blood clots and now today, after aggressive suctioning and approaching, it showed like it is more likely to be a tumor. PLAN: Awaiting cytology pathology and microbiology. cc: MD JORGE Michelle
[2018-10-20 14:52] LABS: HEMATOCRIT 24.5 % (37.0-47.0); HEMOGLOBIN 7.8 g/dL (12.0-16.0); MCH 29.2 PG (27-31); MCHC 31.8 g/dL (33-37); MCV 91.8 FL (81-99); RBC 2.67 XMIL (4.2-5.4); RDW 15.3 % (11.5-14.5); WBC 4.78 X1000 (4.8-10.8)
[2018-10-20] MEDS ORDERED: CARDIZEM 125/NS 125 MG/125 ML IVPB IV SCH (17:12)
--- NOTE | 2018-10-20 17:55 | PROGRESS NOTE ---
DATE: 10/20/2018 SUBJECTIVE: Patient seen postoperatively. She developed atrial fibrillation with RVR and hypotension. No major complaints. OBJECTIVE: Vital Signs: Blood pressure 139/35, heart rate of 88, respiratory rate of 20, temperature 98.4 degrees, 95% on 3 L. Cardiovascular: Irregular rate and rhythm. Pulmonary: Bilateral breath sounds clear to auscultation. Gastrointestinal: Soft, nontender, nondistended. Bowel sounds were positive. DIAGNOSTIC STUDIES: White count 4, hemoglobin 7.8, hematocrit 24.5, platelets up to 92,000. BUN 52 and creatinine 1.9. PROBLEM LIST: 1. Acute hypoxic respiratory failure due to left hemithorax and mucous plugging. Seems to be doing better. She has had persistent issues despite 2 bronchoscopies and standard treatment for excessive mucus and mucus plugging. Dr. Dickerson worked aggressively today. I really appreciate his just going again one more time to see if we could try to salvage the situation. Feels like she has a mass that was biopsied and hopefully we can get some more information. We have not been able to look at any transfers at this point in any case, but hopefully we may not need to. 2. Thrombocytopenia. Has improved after transfusion. She probably has a consumptive process per Dr. Leonard. We will continue to follow. 3. Acute on chronic respiratory failure. She seems to be doing okay. Obviously, she is at risk for bleeding and multiple issues. 4. Atrial fibrillation with rapid ventricular response. She did develop atrial fibrillation. We have started digoxin. I think she got a dose of esmolol from Dr. Aguilar of Anesthesiology, and her heart rate seems to be doing okay. 5. Folic acid deficiency. We will supplement and follow. DISPOSITION: We are looking at LTAC when she has stabilized. We will continue to monitor closely. cc: Marcello Iglesias MD
[2018-10-20] MEDS: LANOXIN IV SCH ×2 (17:56→21:14)
[2018-10-20] MEDS: FOLIC ACID 1 MG in NS 50 ML IV SCH (17:56)
[2018-10-20] MEDS: DIFLUCAN 100 MG/NS 100 MG/50 ML IVPB IV SCH (17:57)
[2018-10-20] MEDS ORDERED: NS 250 ML IV ONE (18:00)
[2018-10-20] MEDS ORDERED: EPINEPHRINE SYRINGE ONE (20:58)
[2018-10-20] MEDS ORDERED: ATROPINE SYRINGE ONE (20:59)
[2018-10-20] MEDS: LIPITOR PO SCH (21:09)
[2018-10-20] MEDS: FERROUS SULFATE PO SCH (21:10)
[2018-10-21] MEDS: XOPENEX NEB INH SCH ×4 (03:00→21:08)
[2018-10-21] MEDS: ATROVENT NEB INH SCH ×4 (03:00→21:08)
[2018-10-21] MEDS: LANOXIN IV SCH (03:40)
[2018-10-21 05:19] LABS: BASO# 0.02 X1000 (0.0-0.2); BASO% 0.4 % (0.0-0.8); EOS# 0.12 X1000 (0.0-0.7); EOS% 2.4 % (0.0-10.0); HEMOGLOBIN 8.3 g/dL (12.0-16.0); IMM GRAN# 0.04 X1000 (0.0-0.04); IMM GRAN% 0.8 % (0.0-0.5); LYMPH# 0.62 X1000 (1.2-3.4); LYMPH% 12.5 % (20.5-51.1); MCH 29.4 PG (27-31); MCHC 31.9 g/dL (33-37); MCV 92.2 FL (81-99); MONO# 0.87 X1000 (0.11-0.59); MONO% 17.5 % (1.7-9.3); MPV 12.5 FL (7.4-10.4); NEUT# 3.29 X1000 (1.4-6.5); NEUT% 66.4 % (42.2-75.2); PLT 93 X1000 (130-400); RBC 2.82 XMIL (4.2-5.4); RDW 15.2 % (11.5-14.5); WBC 4.96 X1000 (4.8-10.8)
[2018-10-21 05:36] LABS: CALCIUM 9.3 mg/dL (8.8-10.2); CREATININE 1.7 mg/dL (0.5-0.9); POTASSIUM 4.3 mmol/L (3.5-5.1)
[2018-10-21] MEDS: ADVAIR 250/50 DISKUS INH SCH ×2 (09:15→21:07)
[2018-10-21] MEDS: MUCOMYST 20% INH SCH ×2 (09:16→21:07)
--- NOTE | 2018-10-21 09:33 | PROGRESS NOTE ---
DATE: 10/21/2018 INTERVAL HISTORY: The patient underwent bronchoscopy on October 20 and with suction of lot of mucus and blood. There was an area close to the left mainstem bronchus which looked like a mass. The cytology reports were sent. The patient was sent back to ICU on high-flow nasal cannula. SUBJECTIVE: The patient is feeling fine. Denies chest pain or shortness of breath. We discussed about possible mass, waiting for further reports. We discussed about her low oxygen levels and left lung collapse. I answered all of her questions. CURRENT VITAL SIGNS: Temperature 97.3 degrees, pulse 72, respiratory rate 16, blood pressure 106/50, saturating 94% on high-flow nasal cannula 50 L per minute. PHYSICAL EXAMINATION: General: Appears morbidly obese. Not in any acute distress. She has a right-sided central line, left-sided pacemaker, and she is on high-flow nasal cannula. HEENT: Oral cavity moist. Lungs: Air entry adequate on right hemithorax. No air entry on left hemithorax. Cardiovascular: S1, S2 normal. No murmur, rub, or gallop. Abdomen: Obese, soft, nontender. Extremities: No lower extremity edema. LABS: Suggestive of no leukocytosis. Stable hemoglobin and hematocrit, platelet count of 93,000. Previously, heparin platelet factor 4 antibodies were negative. Normal electrolytes with what appears to be chronic kidney disease stage 3 to stage 4. MICROBIOLOGY: No new microbiological data. Previous bronchial washings were growing Haylee albicans. ASSESSMENT AND PLAN: 1. Acute hypoxic respiratory failure due to left lung collapse and due to mucus plugging, status post three bronchoscopies. The latest one was on 10/20/2018. There is a suspicion of mass obstructing the left mainstem bronchus close to the bifurcation of left upper and left lower. Final cytology report pending. Continue oxygenation through high-flow nasal cannula to maintain saturations between 92-96%, bronchial hygiene with acetylcysteine, guaifenesin . Follow up final cytology report. 2. Suspected Haylee pneumonia. The patient does have a history of chronic kidney disease and localized right-sided breast tumor. However, she does not have any other immunocompromising conditions. Considering that multiple bronchial washings were growing yeast , the patient has been started on antifungals. Continue fluconazole intravenously. 3. Thrombocytopenia, status post two units of platelets, currently stable. Hematology on board. Likely due to peripheral consumption. Heparin platelet factor 4 antibodies were negative, ruling out heparin-induced thrombocytopenia. 4. Atrial fibrillation with rapid ventricular rate. She had developed atrial fibrillation post procedure on October 20. Currently, rate well controlled. Continue patient on metoprolol. Hold anticoagulation until tomorrow. 5. Left upper extremity deep venous thrombosis. I will start enoxaparin therapeutic dose adjusted for kidney function tomorrow. 6. Folic acid deficiency. Continue to replace folic acid. 8. Disposition. Patient remains inside the intensive care unit as to monitor her post bronchoscopy, pending further cytology report. More than 30 minutes of critical care time were spent in taking care of this patient. I called her daughter and discussed the plan and answered all of her questions. she is a surrogate decision maker. cc: Ramiro Vaughn MD MTDD
[2018-10-21] MEDS: LOPRESSOR PO SCH ×2 (09:42→20:53)
[2018-10-21] MEDS: MUCINEX PO SCH ×2 (09:42→20:52)
[2018-10-21] MEDS: PEPCID PO SCH ×2 (09:42→20:52)
[2018-10-21 11:03] LABS: ALLEN TEST NO; BE 5.3 mmoll (-3.0-3.0); BLOOD TYPE ARTERIAL; HCO3-(ACT) 29.1 mmoll (20.0-26.0); METHB 0.9 % (0.0-1.5); O2(CT) 11.2 mL/dL (15.0-23.0); O2HB 97.7 % (95.0-99.0); PO2(98.6) 148 mmHg (60-100); SAMPLE BLOOD; SAO2 100.2 % (95.0-100.0); THB 7.9 g/dL (11.5-17.4); pH(98.6) 7.39 (7.35-7.45)
[2018-10-21 11:05] LABS: MODALITY CANNULA; PCO2(98.6) 51 mmHg (35-45)
[2018-10-21] MEDS: FOLIC ACID 1 MG in NS 50 ML IV SCH (16:17)
[2018-10-21] MEDS: TYLENOL PO PRN (16:19)
[2018-10-21] MEDS: DIFLUCAN 100 MG/NS 100 MG/50 ML IVPB IV SCH (18:35)
[2018-10-21] MEDS: LIPITOR PO SCH (20:53)
[2018-10-21] MEDS: FERROUS SULFATE PO SCH (20:53)
[2018-10-22] MEDS: ATROVENT NEB INH SCH ×4 (03:40→22:58)
[2018-10-22] MEDS: XOPENEX NEB INH SCH ×4 (03:40→22:58)
[2018-10-22 04:40] LABS: ALLEN TEST YES; BE 3.2 mmoll (-3.0-3.0); BLOOD TYPE ARTERIAL; HCO3-(ACT) 27.4 mmoll (20.0-26.0); METHB 0.7 % (0.0-1.5); O2(CT) 12.5 mL/dL (15.0-23.0); O2HB 96.9 % (95.0-99.0); PCO2(98.6) 46 mmHg (35-45); PO2(98.6) 133 mmHg (60-100); SAMPLE BLOOD; SAO2 99.8 % (95.0-100.0)
[2018-10-22 04:41] LABS: MODALITY CANNULA
[2018-10-22 05:30] LABS: BASO# 0.02 X1000 (0.0-0.2); BASO% 0.4 % (0.0-0.8); EOS# 0.16 X1000 (0.0-0.7); EOS% 2.8 % (0.0-10.0); HEMATOCRIT 27.1 % (37.0-47.0); HEMOGLOBIN 8.8 g/dL (12.0-16.0); IMM GRAN# 0.07 X1000 (0.0-0.04); IMM GRAN% 1.2 % (0.0-0.5); LYMPH# 0.64 X1000 (1.2-3.4); LYMPH% 11.3 % (20.5-51.1); MCH 29.5 PG (27-31); MCHC 32.5 g/dL (33-37); MCV 90.9 FL (81-99); MONO# 0.97 X1000 (0.11-0.59); MONO% 17.2 % (1.7-9.3); NEUT# 3.78 X1000 (1.4-6.5); NEUT% 67.1 % (42.2-75.2); PLT 117 X1000 (130-400); RBC 2.98 XMIL (4.2-5.4); RDW 15.4 % (11.5-14.5); WBC 5.64 X1000 (4.8-10.8)
[2018-10-22 05:38] LABS: CALCIUM 8.8 mg/dL (8.8-10.2); CREATININE 1.5 mg/dL (0.5-0.9)
[2018-10-22] MEDS ORDERED: LOVENOX SUBQ SCH ×2 (08:00)
[2018-10-22] MEDS: ADVAIR 250/50 DISKUS INH SCH ×3 (08:00→20:20)
[2018-10-22] MEDS: MUCOMYST 20% INH SCH ×3 (08:00→22:58)
[2018-10-22] MEDS: LOPRESSOR PO SCH ×2 (08:24→21:20)
[2018-10-22] MEDS: MUCINEX PO SCH ×2 (08:30→20:31)
[2018-10-22] MEDS: PEPCID PO SCH ×2 (08:31→20:31)
[2018-10-22] MEDS: ZOSYN 3.375 GM in NS 50 ML IV SCH ×3 (10:17→21:21)
--- NOTE | 2018-10-22 10:34 | PROGRESS NOTE ---
DATE: 10/22/2018 INTERVAL HISTORY: No overnight events. The patient was weaned down from high-flow nasal cannula to simple nasal cannula. I had called the patient's daughter and informed her about her clinical course. SUBJECTIVE: The patient is feeling fine. Denies chest pain, shortness of breath, nausea, vomiting, and abdominal pain. I discussed with her about bronchoscopy findings and plan, and I answered all of her questions. OBJECTIVE: Vital Signs: Temperature 97.8, heart rate 94, respiratory rate 13, blood pressure 117/55, saturating 100% on 3 L nasal cannula. General: Appears morbidly obese, not in any acute distress. She has a right-sided neck central line, left-sided pacemaker, and nasal cannula. HEENT: Oral cavity moist. Adequate air entry on right hemithorax without wheeze, rhonchi, or crackles. No air entry on left hemithorax except minimal air entry in the suprascapular region. Cardiovascular: S1, S2 normal. Irregular. No murmur, rub, or gallop. Abdomen: Obese, soft, nontender. No lower extremity edema. LABORATORY DATA: Labs today suggestive of no leukocytosis, stable hemoglobin, hematocrit, and platelet count of 117,000. ABG suggestive of normal pH, pCO2 of 46, and pO2 of 133, on 2 L nasal cannula. Electrolytes are normal except elevated BUN and creatinine, which is improving. MICROBIOLOGY: One of the bronchial washings is growing gram-negative alfredito. ASSESSMENT AND PLAN: 1. Acute hypoxic respiratory failure due to left lung collapse due to mucous plug due to a suspected neoplasm, status post 3 bronchoscopies, latest being on 10/20/2018, which was suspicious for mass at left mainstem bronchus division into left upper and left lower lobe. Final cytology report is pending. Continue oxygenation to maintain saturation more than 94%. Continue bronchial hygiene with acetylcysteine and guaifenesin, and physical activity. Follow up final cytology report. 2. Hospital-acquired pneumonia. Previously, bronchial washings growing Haylee and now gram- negative alfredito. Continue patient on fluconazole and start patient on intravenous Zosyn. 3. Thrombocytopenia, status post 2 units of packed red blood cells, currently stable. Likely related to peripheral consumption. Heparin platelet factor 4 antibodies were negative. Follow up CBC frequently. 4. Atrial fibrillation with rapid ventricular rate, now well controlled. Continue home metoprolol and start enoxaparin therapeutic. 5. Left upper extremity deep venous thrombosis. Enoxaparin therapeutic dose adjusted for kidney function. 6. Normocytic anemia. Continue the patient on folic acid. DISPOSITION: The patient will be transferred out of the intensive care unit to the routine medical floor. Long-term acute care facility is evaluating the patient. I would anticipate discharge in the next 48 hours or so. Care management team was updated about the plan and the patient was also updated. All of her questions have been answered. cc: Ramiro Vaughn MD
[2018-10-22] MEDS: FOLIC ACID 1 MG in NS 50 ML IV SCH (16:18)
[2018-10-22] MEDS: DIFLUCAN 100 MG/NS 100 MG/50 ML IVPB IV SCH (20:29)
[2018-10-22] MEDS: FERROUS SULFATE PO SCH (20:31)
[2018-10-22] MEDS: LIPITOR PO SCH (20:32)
--- NOTE | 2018-10-22 23:56 | PULMONOLOGY PROGRESS NOTE ---
DATE: 10/22/2018 SUBJECTIVE: Patient is awake, alert, and conversant. She is without new complaints. OBJECTIVE: Vital Signs: Patient has been afebrile for the last 24 hours. Blood pressure 132/52, heart rate 88, respiratory rate 12, oxygen saturation 92%, HEENT: Pupils are equal and reactive. Oropharynx is clear. Neck: Supple. Chest: Reveals markedly diminished breath sounds in the left hemithorax. Cardiac: S1, S2. Abdomen: Soft and obese. Extremities: Without edema. LABORATORIES: Transbronchial biopsies revealed reactive bronchial mucosa with patchy chronic inflammation and goblet cell metaplasia. Microbiology reveals gram-negative alfredito which is pending. IMPRESSION: A 73-year-old with atelectasis of the left lung, cardiomegaly, acute hypoxemic respiratory failure, with gram-negative bronchitis or pneumonia. RECOMMENDATION: 1. Continue aggressive bronchial hygiene. 2. Encourage patient to lay on both the right and left side in an attempt to re-expand the left lung. 3. I agree with current antibiotic regimen. 4. Follow up chest x-ray tomorrow. cc: Ector Solis MD
[2018-10-23] MEDS: TYLENOL PO PRN (02:38)
[2018-10-23] MEDS: ATROVENT NEB INH SCH ×4 (04:09→22:57)
[2018-10-23] MEDS: XOPENEX NEB INH SCH ×2 (04:09→22:57)
[2018-10-23] MEDS: ZOSYN 3.375 GM in NS 50 ML IV SCH ×4 (04:35→23:18)
--- NOTE | 2018-10-23 07:04 | Diag Imaging Result Doc PS360 ---
EXAM: CHEST-PORTABLE HISTORY: abnormal exam TECHNIQUE: Chest single view COMPARISON: 10/20/2018 FINDINGS: There is complete opacification of the left hemithorax. A pacemaker overlies the left chest. No change in the right jugular line. Mild vascular distention of the right lung. No consolidation of the right. The overall appearance is similar to the prior exam. IMPRESSION: Stable chest. Electronically signed by Dimitrios Correia 10/23/2018 7:02 AM
[2018-10-23] MEDS: MUCOMYST 20% INH SCH ×2 (09:00→22:57)
[2018-10-23] MEDS: ADVAIR 250/50 DISKUS INH SCH ×2 (09:01→20:25)
--- NOTE | 2018-10-23 11:54 | PROGRESS NOTE ---
DATE: 10/23/2018 INTERVAL HISTORY: Patient was transferred from ICU to floor. She has been doing okay on nasal cannula. SUBJECTIVE: I discussed with the patient about the biopsy results which had just shown inflammatory cells and no malignancy. I also discussed with her about pneumonia , answered all of her questions. I discussed with her about sleeping on her right side to keep the left side up to help drain her left lung. PHYSICAL EXAMINATION: Vital signs: Temperature 98.6 degrees, pulse 96 per minute, blood pressure 139/51, saturation 90 to 97 percent on 3 L nasal cannula. General: Does not appear in any acute distress. Morbidly obese. Right-sided neck central line. Left-sided pacemaker , on nasal cannula. HEENT: Oral cavity is moist. Lungs: Adequate entry on right hemithorax without wheeze, rhonchi, crackles. Some air entry on left suprascapular region; however , with no breath sounds on left infrascapular or intrascapular region. S1, S2 normal, irregular. No murmur rub or gallop. Abdomen: Obese, soft, nontender. Extremities: No lower extremity edema. LABORATORY DATA: No new labs today MICROBIOLOGY: Sputum culture growing Pseudomonas aeruginosa sensitive to Zosyn. LUNG BIOPSY RESULTS: Showing fragments of reactive bronchial mucosa with mild patchy chronic inflammation and goblet cell metaplasia. ASSESSMENT AND PLAN: 1. Acute hypoxic respiratory failure due to left lung collapse due to mucus plug , status post 3 bronchoscopies, latest on October 20. Though the bronchoscopy was suspicious of mass, the biopsy result is only showing reactive inflammation. Continue oxygenation to maintain saturation of more than 94%. Continue bronchial hygiene with acetylcysteine and guaifenesin, physical activity and sleeping on the right side. 2. Hospital-acquired pneumonia due to Haylee and Pseudomonas. Continue fluconazole and Zosyn. 3. Hemoptysis, likely leading to thrombocytopenia, status post 2 units of PRBC. Currently hemoglobin has been in acceptable range. Heparin platelet factor 4 antibodies were negative. I will monitor her. 4. Atrial fibrillation with rapid ventricular rate. Continue home metoprolol and enoxaparin. 5. Left upper extremity deep venous thrombosis. Continue enoxaparin therapeutic dose. I will keep a close eye over her breathing status, CBC as she is having a very slight degree of hemoptysis. She has been able to suck out most of her mucus. 6. Normocytic anemia. Continue patient on folic acid. 7. NSVT: I will give her magnesium. The NSVT on rhythm strip could be AFib with rate related BBB or it could be NSVT. I will consider a repeat EKG if she continues to have it. 7. Disposition. The patient remains inside the hospital for close respiratory monitoring. The goal is to send her out to a long-term care facility where she could be managed, keeping a close eye over her respiratory status. I called her daughter and informed her today of patient's medical course and answered all of her questions. cc: Ramiro Vaughn MD MTDD
[2018-10-23] MEDS: LOPRESSOR PO SCH ×2 (11:58→23:00)
[2018-10-23] MEDS: MUCINEX PO SCH ×2 (11:59→23:20)
[2018-10-23] MEDS: PEPCID PO SCH ×2 (11:59→23:20)
[2018-10-23] MEDS: LOVENOX SUBQ SCH (12:51)
[2018-10-23] MEDS ORDERED: MAGNESIUM SULFATE 2 GM/S.W.I. 2 GM/50 ML IVPB IV ONE (15:28)
[2018-10-23] MEDS: FOLIC ACID 1 MG in NS 50 ML IV SCH (16:07)
[2018-10-23] MEDS: DIFLUCAN 100 MG/NS 100 MG/50 ML IVPB IV SCH (18:37)
--- NOTE | 2018-10-23 20:37 | PULMONOLOGY PROGRESS NOTE ---
DATE: 10/23/2018 SUBJECTIVE: Patient is sitting in a chair. She is without new complaints. OBJECTIVE: VITAL SIGNS: She is afebrile. Blood pressure 94/51, heart rate 73, respiratory rate 16, oxygen saturation 99% on 3 L. HEENT: Pupils are equal and reactive. Oropharynx is clear. Neck: Supple. Chest: Reveals markedly diminished breath sounds in the left lung. Cardiac exam: S1-S2. Abdomen: Obese and soft. Extremities: Without edema. LABORATORIES: Chest x-ray reveals continued atelectasis in the left lung. IMPRESSION: A 73-year-old with: 1. Atelectasis of the left lung. 2. Cardiomegaly. 3. Acute hypoxemic respiratory failure. 4. Morbid obesity. 5. Gram-negative bronchitis/pneumonia. RECOMMENDATION: 1. Continue antibiotics for Pseudomonas aeruginosa. 2. Continue to mobilize patient out of bed as tolerated. 3. Encourage bronchial hygiene. 4. Additional recommendations pending hospital course. cc: Ector Solis MD
[2018-10-23] MEDS: CALMOSEPTINE OINTMENT TOP PRN (21:30)
[2018-10-23] MEDS: LIPITOR PO SCH (23:20)
[2018-10-23] MEDS: FERROUS SULFATE PO SCH (23:20)
[2018-10-24] MEDS: XOPENEX NEB INH SCH ×6 (04:13→22:45)
[2018-10-24] MEDS: ZOSYN 3.375 GM in NS 50 ML IV SCH ×3 (06:30→18:13)
[2018-10-24 06:48] LABS: BASO# 0.02 X1000 (0.0-0.2); BASO% 0.2 % (0.0-0.8); EOS# 0.33 X1000 (0.0-0.7); HEMATOCRIT 27.7 % (37.0-47.0); HEMOGLOBIN 8.8 g/dL (12.0-16.0); IMM GRAN# 0.05 X1000 (0.0-0.04); IMM GRAN% 0.5 % (0.0-0.5); LYMPH# 0.61 X1000 (1.2-3.4); LYMPH% 5.6 % (20.5-51.1); MCH 29.4 PG (27-31); MCHC 31.8 g/dL (33-37); MCV 92.6 FL (81-99); MONO% 8.3 % (1.7-9.3); MPV 11.3 FL (7.4-10.4); NEUT# 8.94 X1000 (1.4-6.5); NEUT% 82.4 % (42.2-75.2); PLT 199 X1000 (130-400); RBC 2.99 XMIL (4.2-5.4); WBC 10.85 X1000 (4.8-10.8)
[2018-10-24 07:02] LABS: CALCIUM 8.1 mg/dL (8.8-10.2); CREATININE 1.5 mg/dL (0.5-0.9); POTASSIUM 3.9 mmol/L (3.5-5.1)
[2018-10-24] MEDS: ATROVENT NEB INH SCH ×4 (07:27→22:45)
[2018-10-24] MEDS: ADVAIR 250/50 DISKUS INH SCH ×2 (08:38→20:15)
[2018-10-24] MEDS: MUCOMYST 20% INH SCH ×2 (08:41→22:45)
[2018-10-24] MEDS: LOPRESSOR PO SCH (09:30)
[2018-10-24] MEDS: MUCINEX PO SCH ×2 (09:30→19:45)
[2018-10-24] MEDS: PEPCID PO SCH ×2 (09:30→19:45)
[2018-10-24] MEDS: LOVENOX SUBQ SCH (12:06)
[2018-10-24] MEDS: FOLIC ACID 1 MG in NS 50 ML IV SCH (15:13)
--- NOTE | 2018-10-24 15:50 | PULMONOLOGY PROGRESS NOTE ---
DATE: 10/24/2018 SUBJECTIVE: The patient is resting comfortably in bed. She is without specific complaints. She reports occasional sputum production. OBJECTIVE: The patient has been afebrile for the last 24 hours. Blood pressure 100/51, heart rate 92, respiratory rate 16, oxygen saturation 100%. HEENT: Pupils are equal and reactive. Oropharynx is clear. Neck: Supple. Chest: Reveals decreased breath sounds left lung. Cardiac Exam: S1-S2. Abdomen: Obese and soft. Extremities: Reveal increased adiposity without significant edema. IMPRESSION: A 73-year-old with 1. Ongoing atelectasis of the left lung. 2. Cardiomegaly. 3. Acute hypoxemic respiratory failure . 4. Morbid obesity. 5. Gram negative bronchitis/pneumonia. RECOMMENDATION: 1. Continue mobilize patient as tolerated. 2. Continue bronchial hygiene. cc: Ector Solis MD
--- NOTE | 2018-10-24 18:13 | PROGRESS NOTE ---
DATE: 10/24/2018 Interval history. No acute events overnight. I was informed by the nursing team that they were worried about redness patient had on her bilateral lower extremities and back. SUBJECTIVE: Patient denies new complaints, denies chest pain or shortness of breath. She continues to have intermittent cough that she is sucking out. She was able to sit at the edge of the bed today. Currently vitals temperature of 98.6 degrees, pulse 91, blood pressure 101/50, saturating 100% on room air on 2 L nasal cannula. OBJECTIVE: Morbidly obese, not in any acute distress right-sided neck central line, left-sided pacemaker with left upper extremity swelling. Oral cavity moist. Adequate air entry on right hemithorax without wheeze, rhonchi, crackles, some air entry on left suprascapular region however no breath sound on left infrascapular region. S1, S2 normal irregularly irregular, no murmur, rub, or gallop.Abdomen: Obese, soft, nontender. Extremities: Mild lower extremity edema bilaterally but it is more related to fat deposition. LABS: Suggestive of leukocytosis, hemoglobin of 8.8, platelet count of 199, normal electrolytes with CKD stage 3. Microbiology, sputum positive for Pseudomonas sensitive to all antibiotics reported. ASSESSMENT AND PLAN: 1. Acute hypoxic respiratory failure due to left lung collapse due to mucus plug also superimposed with suspected fungal pneumonia versus fungal tracheobronchitis and Pseudomonas pneumonia versus Pseudomonas tracheobronchitis status post 3 bronchoscopies latest on October 20. The biopsy results of transbronchial biopsy just suggest reactive inflammation without evidence of any carcinoma. Continue oxygenation to maintain saturation more than 94%, continue bronchial hygiene with acetylcysteine and guaifenesin, physical activity with out of bed 3 times a day, continue fluconazole for suspected Haylee pneumonia and Zosyn for suspected hospital-acquired Pseudomonas pneumonia. 2. Hemoptysis leading to thrombocytopenia initially. Her platelet count has stabilized. She is status post 2 units of packed red blood cell during this admission. Her heparin platelet factor 4 antibodies were negative. Her hemoptysis is likely in the setting of use of enoxaparin plus possibly minor trauma sustained at the time of bronchoscopy, she does not have any signs of hemodynamic instability, I will monitor for now. 3. Atrial fibrillation with rapid ventricular rate currently well controlled. Continue home metoprolol and enoxaparin. 4. Left upper extremity deep vein thrombosis, continue enoxaparin. 5. Normocytic anemia, continue folic acid. 6. History of nonsustained ventricular tachycardia. She has had episodes of atrial fibrillation, rapid ventricular response which look like supraventricular tachycardia to me. 7. Disposition. Patient remains inside the hospital for close respiratory monitoring. The plan is to discharge her to long-term care facility in future, plan of care were discussed with her, all of her questions have been answered. cc: Ramiro Vaughn MD
[2018-10-24] MEDS: DIFLUCAN 100 MG/NS 100 MG/50 ML IVPB IV SCH (18:47)
[2018-10-24] MEDS: LIPITOR PO SCH (19:45)
[2018-10-24] MEDS: FERROUS SULFATE PO SCH (19:46)
[2018-10-24] MEDS: TYLENOL PO PRN (19:46)
[2018-10-24] MEDS: CALMOSEPTINE OINTMENT TOP PRN (21:10)
[2018-10-25] MEDS: FERROUS SULFATE PO SCH ×2 (00:37→20:35)
[2018-10-25] MEDS: LIPITOR PO SCH ×2 (00:37→20:35)
[2018-10-25] MEDS: PEPCID PO SCH ×3 (00:39→20:36)
[2018-10-25] MEDS: MUCINEX PO SCH ×3 (00:39→20:37)
[2018-10-25] MEDS: LOPRESSOR PO SCH ×4 (00:52→20:35)
[2018-10-25] MEDS: ATROVENT NEB INH SCH ×4 (04:24→22:59)
[2018-10-25] MEDS: XOPENEX NEB INH SCH ×4 (04:25→22:59)
[2018-10-25] MEDS: ZOSYN 3.375 GM in NS 50 ML IV SCH ×6 (05:29→23:39)
[2018-10-25] MEDS: MUCOMYST 20% INH SCH ×2 (09:37→22:59)
[2018-10-25] MEDS: ADVAIR 250/50 DISKUS INH SCH ×2 (09:38→20:15)
[2018-10-25] MEDS: LOVENOX SUBQ SCH ×2 (12:09→23:39)
--- NOTE | 2018-10-25 17:14 | HEMO/ONC PROGRESS NOTE ---
DATE: 10/25/2018 SUBJECTIVE: Patient says she continues to improve. The patient says shortness of breath continues to get better. The patient has no other new complaints at this time. OBJECTIVE: Vital Signs: Temperature 98.1 degrees, heart rate 80, respiratory rate 15, blood pressure 110/42, saturating 93% on nasal cannula. General: Patient is awake, lying in bed. No acute distress noted. HEENT: Anicteric. PERRLA. Mucous membranes moist. Chest: Bilateral breath sounds clear to auscultation. Cardiovascular: S1, S2, regular rate and rhythm. Abdomen: Soft, nontender. Bowel sounds present in all 4 quadrants. Neurologic: Alert and oriented x3. No focal deficits noted. LABORATORY DATA: White blood cell count 10.85, hemoglobin 8.8, hematocrit 27.7 , platelets are 199,000. Potassium 3.9, BUN 28, creatinine 1.5. ASSESSMENT AND PLAN: 1. Thrombocytopenia: Platelet counts are improving back to normal at this time. They are 199,000. Just continue to monitor. 2. Acute hypoxic respiratory failure: Continue recommendations by primary team and Pulmonology. 3. Atrial fibrillation. Continue recommendations by primary medical team. Dictated by DAVID Flannery for Wade Leonard MD Patient seen and examined. patient reports that her left upper extremity is swollen again. Thrombocytopenia improved. Left upper extremity DVT. Will discuss with Dr. Vaughn. cc: DAVID Flannery MD [facility]
--- NOTE | 2018-10-25 18:03 | PROGRESS NOTE ---
DATE: 10/25/2018 Interval history. No overnight events. SUBJECTIVE: Patient was sitting in the chair by the time I saw her, she does not appear in any acute distress. We discussed about her condition again at length. She told me that her rehab personnel had come by and had provided some information to her. We are waiting for bed availability. Currently vitals temperature 97.6 degrees, pulse 92, blood pressure 100/38, respiratory rate of 18 per minute, saturating 93% on 2 L nasal cannula. OBJECTIVE: Morbidly obese, not in any acute distress. The oral suction canister has some brownish sputum. She has a right-sided neck central line, left-sided pacemaker with left upper extremity swelling. Oral cavity is moist. Adequate air entry on right hemithorax without wheeze, rhonchi, crackles. Air entry on left suprascapular region is present however no breath sounds in the rest of the left hemithorax. S1, S2. Irregularly irregular. No murmur, rub, or gallop. Abdomen is obese, soft, nontender. Extremities. Lower extremity edema bilaterally. LABS: No CBC or BMP today. ASSESSMENT AND PLAN: 1. Acute hypoxic respiratory failure due to left lung collapse due to mucus plugs with superimposed fungal pneumonia versus fungal tracheobronchitis and Pseudomonas pneumonia versus Pseudomonas tracheobronchitis status post 3 bronchoscopies latest on October 20. The biopsy results of transbronchial specimen did not detect any malignancy. Continue oxygenation to maintain saturation more than 94%, bronchial hygiene with acetylcysteine and guaifenesin and physical activity with out of bed 3 times, fluconazole and intravenous Zosyn for suspected hospital-acquired pneumonia. 2. Hemoptysis leading to thrombocytopenia, initially her thrombocytopenia had resolved. She is status post 2 units of packed red blood cell during this admission. Her heparin, platelet factor 4 antibodies are negative. Her hemoptysis is only minimal. This is likely in the setting of enoxaparin use, possibly minor trauma sustained during bronchoscopy as well, she does not have any hemodynamic instability. After discussing with her risks versus benefit I continued her enoxaparin. 3. History of Atrial fibrillation and bradycardia s/p pacemaker: currently well controlled, continue home metoprolol and enoxaparin, I change enoxaparin dose considering her stable kidney function. 4. Left upper extremity deep vein thrombosis and generalized anasarca. Continue enoxaparin. I started patient on Lasix. I will start her on full home dose of Lasix after monitoring of kidney function. 5. Normocytic anemia, continue folic acid. 6. History of nonsustained ventricular tachycardia which actually looks like atrial fibrillation with rapid ventricular rate or supraventricular tachycardia, now it has resolved. 7. Disposition. A long-term acute care facility options have been provided to the patient. She is awaiting bed availability. Plan of care was discussed with her. All of her questions have been answered. cc: Ramiro Vaughn MD MTDD
[2018-10-25] MEDS: FOLIC ACID 1 MG in NS 50 ML IV SCH (18:21)
[2018-10-25] MEDS: LASIX PO SCH (18:24)
[2018-10-25] MEDS: DIFLUCAN 100 MG/NS 100 MG/50 ML IVPB IV SCH (20:27)
[2018-10-25] MEDS: TYLENOL PO PRN (20:36)
[2018-10-26] MEDS: ATROVENT NEB INH SCH ×4 (03:56→22:22)
[2018-10-26] MEDS: XOPENEX NEB INH SCH ×4 (03:56→22:21)
[2018-10-26] MEDS: ZOSYN 3.375 GM in NS 50 ML IV SCH ×3 (06:27→18:27)
--- NOTE | 2018-10-26 07:28 | Diag Imaging Result Doc PS360 ---
EXAM: CHEST-1 VIEW INDICATION: SOB TECHNIQUE: One view COMPARISON: 10/23/2018 FINDINGS: The right central line is in stable position. There is stable complete opacification of the left hemithorax. Mild pulmonary venous congestion on the right is stable. No new consolidation is identified. Cardiac silhouette is stable. IMPRESSION: Stable chest. Electronically signed by Daquan Sharp 10/26/2018 7:26 AM
[2018-10-26] MEDS: ADVAIR 250/50 DISKUS INH SCH ×2 (09:32→20:20)
[2018-10-26] MEDS: MUCOMYST 20% INH SCH ×2 (09:32→22:21)
[2018-10-26] MEDS: LOPRESSOR PO SCH ×3 (09:46→22:23)
[2018-10-26] MEDS: MUCINEX PO SCH ×2 (09:46→22:22)
[2018-10-26] MEDS: LASIX PO SCH (09:48)
[2018-10-26] MEDS: LOVENOX SUBQ SCH ×2 (09:49→22:24)
[2018-10-26] MEDS: PEPCID PO SCH ×2 (09:49→22:23)
[2018-10-26] MEDS: FOLIC ACID PO SCH (09:51)
[2018-10-26 09:59] LABS: BASO# 0.05 X1000 (0.0-0.2); BASO% 0.3 % (0.0-0.8); EOS# 0.59 X1000 (0.0-0.7); EOS% 3.7 % (0.0-10.0); HEMATOCRIT 26.7 % (37.0-47.0); HEMOGLOBIN 8.6 g/dL (12.0-16.0); IMM GRAN# 0.05 X1000 (0.0-0.04); IMM GRAN% 0.3 % (0.0-0.5); MCH 29.5 PG (27-31); MCHC 32.2 g/dL (33-37); MCV 91.4 FL (81-99); MONO% 6.9 % (1.7-9.3); MPV 11.3 FL (7.4-10.4); NEUT# 13.39 X1000 (1.4-6.5); NEUT% 83.8 % (42.2-75.2); PLT 249 X1000 (130-400); RBC 2.92 XMIL (4.2-5.4); WBC 15.98 X1000 (4.8-10.8)
[2018-10-26 10:14] LABS: CREATININE 2.1 mg/dL (0.5-0.9)
--- NOTE | 2018-10-26 11:39 | PROGRESS NOTE ---
DATE: 10/26/2018 INTERVAL HISTORY: No acute events. Patient's Lasix was started yesterday and she states she has been making a good amount of urine. She denies any new complaints. We discussed about her left arm swelling and the fact that I am increasing her Lovenox dose. I also discussed with her that I had a discussion with motor coach supervisor about her DVT, hemoptysis and her medical condition and answered all of her questions. The patient denies any new complaints currently. OBJECTIVE: General: Appears morbidly obese. Vitals: Temperature 98.3 degrees, pulse 72, respiratory rate 22, blood pressure is a 95/34. She is saturating 100% on 2 L nasal cannula. Denies any new complaints. HEENT: The suction canister has brownish sputum which appears to have old blood. She has a right-sided neck central line, left-sided pacemaker with left upper extremity swelling involving the entire extremity. Oral cavity is moist. Adequate air entry on right hemithorax without wheeze, rhonchi, crackles. Lungs: There is minimal air entry in left supramammary region. However, otherwise, left hemithorax does not have any air movement. Cardiovascular: S1, S2 normal. Irregularly irregular. No murmur, rub, or gallop. Abdomen: Obese, soft, nontender. Extremities: Lower extremity edema bilaterally. LABORATORIES: Suggestive of worsening leukocytosis. Stable hemoglobin, hematocrit, and platelet count. She does have normal electrolytes with elevated BUN, creatinine in the setting of chronic kidney disease. Microbiology was noted previously. IMAGING: Chest x-ray performed today suggests stable complete opacification of left hemithorax. Pulmonary venous congestion on the right without any new consolidation. ASSESSMENT AND PLAN: 1. Acute hypoxic respiratory failure due to left lung collapse due to mucus plug superimposed with Haylee albicans, tracheobronchitis versus pneumonia and Pseudomonas acute bronchitis versus pneumonia. She is status post 3 bronchoscopies, latest being on October 20 with suction of mucus. 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 Continue oxygenation to maintain saturation more than 94%, bronchial hygiene with acetylcysteine and guaifenesin, physical activity with out of bed 3 times, fluconazole until October 30 and intravenous Zosyn for a total of 2 weeks, last day being November 03. I will plan transitioning her to levofloxacin at the time of discharge. 2. Hypotension: Improved s/p 2 L of IV fluids. I asked the nursing team to hold night time metoprolol. Her hypotension could be related to Lasix use. If it doesn't improve, I would get blood culture, lactate and possibly start Linezolid for suspected sepsis. 2. Hemoptysis and thrombocytopenia. Her thrombocytopenia has resolved, which was likely in the setting of peripheral platelet consumption with negative heparin platelet factor 4 antibodies, she is status post 2 units of pheresis platelets and 1 unit of packed red blood cells during this admission. Her hemoptysis is minimal without any hemodynamic instability or drop in hemoglobin. This is likely in the setting of enoxaparin use and possibly minor trauma sustained during bronchoscopy. Continue to monitor. 3. Chronic kidney disease stage III to stage IV with intermittent acute kidney injury with volume overload and generalized anasarca. Continue patient on Lasix, which is her home medication which was started back on October 25 because of her anasarca. Monitor BMP. Insert Flynn catheter as per the patient's request as she has trouble coming out of bed and considering her large body habitus, it has been difficult to manage her frequent urine output. She understands the risks associated with Flynn catheter. 4. History of atrial fibrillation, bradycardia, status post pacemaker. Continue home metoprolol and adjust the dose according to her heart rate and blood pressure. Continue enoxaparin. I will keep on modifying enoxaparin dose according to her kidney function. 5. Left upper extremity DVT and generalized anasarca. Continue enoxaparin and Lasix. 6. Normocytic anemia. Continue folic acid, ferrous sulfate. 7. Other problems. History of nonsustained ventricular tachycardia during this admission, which actually was atrial fibrillation with rapid ventricular rate or supraventricular acute tachycardia, now resolved. 8. Disposition. A long-term acute care facility is evaluating the patient. The plan is to discharge her to long-term acute care with oxygen whenever a bed becomes available. Plan of care was discussed with her. All of her questions have been answered. I anticipate discharge in next 24 to 48 hours if her blood count comes down tomorrow and there is a bed availability. cc: MD JORGE Jaimes
[2018-10-26] MEDS ORDERED: NS 500 ML IV SCH (11:45)
[2018-10-26] MEDS ORDERED: NS 1,000 ML ONE (12:30)
[2018-10-26] MEDS: NS 500 ML IV SCH (12:41)
--- NOTE | 2018-10-26 14:59 | HEMO/ONC PROGRESS NOTE ---
DATE: 10/26/2018 SUBJECTIVE: Patient continues to slowly improve. The patient does complain of some increased swelling to the left upper extremity: No other new complaints. OBJECTIVE: Vital Signs: Temperature of 98.3 degrees, heart rate 72, respiratory rate 20, blood pressure 80/30, satting 100 percent on nasal cannula. General: Patient is awake, lying in bed, no acute distress noted. HEENT: Anicteric. Pupils PERRLA. Mucous membranes appear to be moist. Cardiovascular: S1, S2. Regular rate and rhythm. Chest: Bilateral breath sounds diminished bilaterally. Abdomen: Soft, nontender. Bowel sounds present in all 4 quadrants. Neurologic: Alert and oriented x3. No focal deficits noted. LABORATORY DATA: White blood cell count 15.98, hemoglobin 8.6, hematocrit 26.7, platelets are 249. Potassium 4.0, BUN 35, creatinine 2.1. ASSESSMENT AND PLAN: 1. Thrombocytopenia: Platelet counts have resolved. Just continue to monitor at this time. 2. Acute hypoxic respiratory failure: Continue recommendations by primary medical team and pulmonology. 3. Atrial fibrillation: Continue recommendations per primary medical team. 4. Deep venous thrombosis: Lovenox has been restarted. Continue recommendations by primary medical team. 5. Disposition: Continue Lovenox as ordered. Thrombocytopenia has resolved. Call for any questions. Dictated by DAVID Flannery for Wade Leonard MD cc: DAVID Flannery MD
[2018-10-26] MEDS ORDERED: NS 1,000 ML IV ONE ×2 (15:23→15:29)
[2018-10-26 18:44] LABS: BILIRUBIN URINE NEGATIVE (NEGATIVE); BLOOD URINE SMALL (NEGATIVE); COLOR YELLOW; GLUCOSE URINE NEGATIVE (NEGATIVE); KETONE URINE NEGATIVE (NEGATIVE); LEUKOCYTES URINE LARGE (NEGATIVE); NITRITE URINE NEGATIVE (NEGATIVE); PROTEIN URINE NEGATIVE (NEGATIVE); SP GRAVITY URINE 1.013; TURBIDITY URINE TURBID (CLEAR); URINE SOURCE CATH; UROBILINOGEN URINE NORMAL (NORMAL)
[2018-10-26 18:45] LABS: UR EPITHELIAL CELLS >10 /HPF (<10); URINE BACTERIA NEGATIVE /HPF; URINE RBC TNTC /HPF (<10); URINE WBC TNTC /HPF (<10)
[2018-10-26 18:56] LABS: URINE CASTS NONE SEEN; URINE YEAST PRESENT
[2018-10-26] MEDS: LIPITOR PO SCH (22:23)
[2018-10-26] MEDS: DIFLUCAN 100 MG/NS 100 MG/50 ML IVPB IV SCH (22:24)
[2018-10-26] MEDS: FERROUS SULFATE PO SCH (22:24)
[2018-10-27] MEDS: ZOSYN 3.375 GM in NS 50 ML IV SCH ×4 (01:41→22:10)
[2018-10-27] MEDS: XOPENEX NEB INH SCH ×4 (04:06→22:10)
[2018-10-27] MEDS: ATROVENT NEB INH SCH ×4 (04:06→22:10)
[2018-10-27] MEDS: GYNE-LOTRIMIN VAGINAL CREAM VAG SCH ×2 (05:37→22:14)
[2018-10-27 06:35] LABS: BASO# 0.05 X1000 (0.0-0.2); BASO% 0.3 % (0.0-0.8); EOS# 0.68 X1000 (0.0-0.7); EOS% 4.2 % (0.0-10.0); HEMOGLOBIN 8.3 g/dL (12.0-16.0); IMM GRAN# 0.05 X1000 (0.0-0.04); IMM GRAN% 0.3 % (0.0-0.5); LYMPH# 0.94 X1000 (1.2-3.4); LYMPH% 5.8 % (20.5-51.1); MCHC 31.9 g/dL (33-37); MCV 90.9 FL (81-99); MONO# 1.22 X1000 (0.11-0.59); MONO% 7.5 % (1.7-9.3); MPV 11.2 FL (7.4-10.4); NEUT# 13.29 X1000 (1.4-6.5); NEUT% 81.9 % (42.2-75.2); PLT 249 X1000 (130-400); RBC 2.86 XMIL (4.2-5.4); RDW 15.9 % (11.5-14.5); WBC 16.23 X1000 (4.8-10.8)
[2018-10-27 07:06] LABS: CALCIUM 8.2 mg/dL (8.8-10.2); CREATININE 2.1 mg/dL (0.5-0.9); POTASSIUM 3.8 mmol/L (3.5-5.1)
[2018-10-27] MEDS: ADVAIR 250/50 DISKUS INH SCH ×2 (08:10→20:05)
[2018-10-27] MEDS: MUCOMYST 20% INH SCH ×2 (08:11→22:10)
[2018-10-27] MEDS: LASIX PO SCH (09:43)
[2018-10-27] MEDS: LOPRESSOR PO SCH ×2 (09:45→22:08)
[2018-10-27] MEDS: LOVENOX SUBQ SCH ×2 (09:46→22:13)
[2018-10-27] MEDS: PEPCID PO SCH ×2 (09:46→22:09)
[2018-10-27] MEDS: FOLIC ACID PO SCH (09:46)
[2018-10-27] MEDS: MUCINEX PO SCH ×2 (09:46→22:10)
[2018-10-27] MEDS: TYLENOL PO PRN (09:51)
[2018-10-27] MEDS: ZYVOX PO SCH (14:44)
--- NOTE | 2018-10-27 16:09 | PROGRESS NOTE ---
DATE: 10/27/2018 INTERVAL HISTORY: The patient's blood pressure yesterday had increased after 2 liters of boluses, and she appeared hemodynamically stable. No other acute events. She continues to have rising leukocytosis SUBJECTIVE: Patient is feeling the same. Denies any new complaints. Sleeping in the bed. I explained to her about her clinical condition and answered all of her questions. I explained to her about her atrial fibrillation, low blood pressure, suspected new infection, persistent left lung collapse. PHYSICAL EXAMINATION: Vital Signs: Currently, temperature 98.2 degrees, pulse 88 per minute, respiratory rate 18, blood pressure 95/50, saturating 100% on 2 L nasal cannula. General: On physical examination, the patient does not appear in any acute distress. ENT: Oral cavity is moist. Lungs: Air entry adequate on right hemithorax. Mild air entry on left suprascapular region. No air entry on remaining left hemithorax. Abdomen: Obese, nontender. Mild bilateral lower extremity edema. She has urine catheter in place. Heart: Rate is irregularly irregular. No murmur, rub, or gallop. She has a left-sided pacemaker and right-sided neck central line. She has extreme swelling of left upper extremities. LABS: Suggestive of worsening leukocytosis, normocytic anemia, normal platelet count. Chronic kidney disease stage III to stage IV. MICROBIOLOGY: Repeat blood cultures are in lab. ASSESSMENT AND PLAN: 1. Sepsis. Considering her hypotension, tachycardia, though with her worsening leukocyte count, source is unclear. She already had Pseudomonas pneumonia and she is on appropriate antibiotics. I will follow up with urine culture. Repeat blood culture. If blood culture is positive, she might need removal of right-sided central line. Continue intravenous Zosyn and start patient on oral linezolid until final cultures come back. I will consider adding lactate as well. 2. Acute hypoxic respiratory failure due to left lung collapse due to mucous plug superimposed with Haylee albicans, tracheobronchitis versus pneumonia, Pseudomonas tracheobronchitis versus pneumonia, status post 3 bronchoscopies, the latest on October 20 with suction of mucus, however with inability to open up the lung with biopsy results of transbronchial specimen showing goblet cell metaplasia without malignancy. Continue oxygenation to maintain saturation more than 94%, bronchial hygiene with acetylcysteine and guaifenesin, and physical activity as much as tolerated. Continue fluconazole until October 30 and intravenous Zosyn for at least a total of 2 weeks, and start patient on linezolid. 3. Hemoptysis likely in the setting of enoxaparin use and possibly minor trauma sustained at the time of bronchoscopy. Currently, she is hemodynamically stable, and her blood count is stable. I will just monitor it. 4. Chronic kidney disease stage III to stage IV with intermittent acute kidney injury and fluctuating volume status between volume depletion to volume overload. Follow up with frequent basic metabolic panel, and close input and output monitoring with Flynn catheter. Continue small dose of Lasix for now and monitor urine output. 5. History of atrial fibrillation, bradycardia status post pacemaker. Continue home metoprolol at a lower dose and adjust according to blood pressure and heart rate response. 6. Left upper extremity deep vein thrombosis. Continue enoxaparin therapeutic dose. Adjust dose according to kidney function. 7. Other problems during hospitalization: Thrombocytopenia because of peripheral consumption, resolved. Normocytic anemia at an acceptable range. History of episodes of supraventricular tachycardia, nonsustained ventricular tachycardia which were actually atrial fibrillation with rapid ventricular rate, currently in an acceptable range. DISPOSITION: I talked with campus recruiting intern at long-term acute care facility, Dr. Blake, on his cell phone number which was provided to me by social sciences research scientist team. I explained to her about patient's clinical condition and requested an LTAC bed whenever she is medically stable. However, I was told that the patient can not come to LTAC, and she can go to rehab or she can go to [facility] considering that LTAC has rejected. In future once patient becomes medically optimized, I would consider transferring her to rehab center with close medical follow-up since LTAC has rejected the patient. Surgery team inside this hospital had evaluated the patient, and considering patient did not have any diagnosed malignancy, deemed not an ideal candidate for any surgical procedure. Plan of care was discussed with the patient. All of her questions have been answered. I also tried to reach out to patient's daughter, Miss Mancilla at , however she did not sisal picker and her voicemail was full. cc: MD JORGE Jaimes
[2018-10-27] MEDS ORDERED: ZOSYN ONE (17:58)
[2018-10-27] MEDS: FERROUS SULFATE PO SCH (22:08)
[2018-10-27] MEDS: LIPITOR PO SCH (22:10)
[2018-10-27] MEDS: DIFLUCAN 100 MG/NS 100 MG/50 ML IVPB IV SCH (22:11)
[2018-10-28] MEDS: ZOSYN 3.375 GM in NS 50 ML IV SCH ×2 (03:25→09:11)
[2018-10-28] MEDS: XOPENEX NEB INH SCH ×4 (03:55→21:35)
[2018-10-28] MEDS: ATROVENT NEB INH SCH ×4 (03:55→21:35)
[2018-10-28 05:56] LABS: BASO# 0.06 X1000 (0.0-0.2); BASO% 0.3 % (0.0-0.8); EOS# 0.75 X1000 (0.0-0.7); EOS% 3.9 % (0.0-10.0); HEMATOCRIT 25.9 % (37.0-47.0); HEMOGLOBIN 8.3 g/dL (12.0-16.0); IMM GRAN# 0.07 X1000 (0.0-0.04); IMM GRAN% 0.4 % (0.0-0.5); LYMPH# 0.97 X1000 (1.2-3.4); LYMPH% 5.1 % (20.5-51.1); MCH 28.8 PG (27-31); MCV 89.9 FL (81-99); MONO# 1.88 X1000 (0.11-0.59); MONO% 9.9 % (1.7-9.3); MPV 11.7 FL (7.4-10.4); NEUT# 15.26 X1000 (1.4-6.5); NEUT% 80.4 % (42.2-75.2); PLT 259 X1000 (130-400); RBC 2.88 XMIL (4.2-5.4); RDW 15.8 % (11.5-14.5); WBC 18.99 X1000 (4.8-10.8)
[2018-10-28 06:08] LABS: CALCIUM 8.2 mg/dL (8.8-10.2); CREATININE 2.2 mg/dL (0.5-0.9); POTASSIUM 3.9 mmol/L (3.5-5.1)
[2018-10-28] MEDS: FOLIC ACID PO SCH (09:10)
[2018-10-28] MEDS: MUCINEX PO SCH ×2 (09:11→21:25)
[2018-10-28] MEDS: ZYVOX PO SCH (09:11)
[2018-10-28] MEDS: PEPCID PO SCH ×2 (09:11→21:24)
[2018-10-28] MEDS: LOPRESSOR PO SCH ×2 (09:11→21:25)
[2018-10-28] MEDS: LOVENOX SUBQ SCH ×2 (09:12→21:25)
[2018-10-28] MEDS: LASIX PO SCH (09:40)
[2018-10-28] MEDS: MAXIPIME 2 GM in NS 100 ML IV SCH ×2 (10:14→21:24)
[2018-10-28] MEDS: MIRALAX PO SCH ×2 (10:14→21:24)
--- NOTE | 2018-10-28 10:23 | INFECTIOUS DISEASE CONSULT REP ---
DATE: 10/28/2018 CONCLUSION: The patient has a pseudomonas and most likely candidate albicans pneumonia. There is a complete opacification of the left chest. RECOMMENDATIONS: I have switched the patient to a combination of cefepime and micafungin and I have also ordered tobramycin by inhalation. DISCUSSION: The patient started having a cough. Initially it was green sputum and now it has blood in it. Her bronchial washings grew pseudomonas and john albicans. She has developed opacification of the left side of the chest. Her CBC shows a white count of 8, 990, hemoglobin 8.3 and platelet count 259,000. Creatinine is 2.2. GFR is 26. Bronchial washings shows pseudomonas and john albicans. Urinalysis showed white cells but no bacteria. Chest x- rays shows pulmonary venous congestion and opacification of the left hemithorax. PAST MEDICAL HISTORY/REVIEW OF SYSTEMS: Eyes and ears: She does not have any trouble seeing or hearing. Neck: No stiffness. Respiratory: See present illness. Cardiac: No chest pain or palpitations. GI: No nausea, vomiting or diarrhea. : No dysuria or flank pain. Bones, joints, muscles: She is not complaining of any joint pain or muscle aches. Endocrine: Patient is diabetic but she does not have thyroid disease. Neurologic: Patient has not had seizures. She can move her extremities but she is unable to walk. Integument: No rashes. PREVIOUS HOSPITALIZATIONS AND OPERATIONS: She has had a right mastectomy for breast cancer. She has had a pacemaker installed. She has also had bronchoscopy. MEDICAL DISEASES: Positive for breast cancer, diabetes mellitus, hypertension, hyperlipidemia and cardiac arrhythmia requiring a pacemaker. INFECTIOUS DISORDER HISTORY: Positive for pneumonia and UTI. FAMILY HISTORY: Positive for diabetes mellitus, hypertension, myocardial infarction, stroke and cancer. SOCIAL HISTORY: The patient is a town. She is a . She lives alone. She stopped smoking cigarettes 15 years ago. She does not drink alcoholic beverages or abuse drugs. ALLERGIES: She is allergic to Macrobid. HOME MEDICATIONS: Her home medications include the following: Atorvastatin, Coreg, famotidine, fluticasone, Lasix, hydrocodone, hydroxyzine, irbesartan and Xarelto. PHYSICAL EXAMINATION: Vital Signs: Temperature is 98, pulse 118, respirations 16, blood pressure 76/46. Patient weighs 308 pounds. General: This is a morbidly obese elderly female. She does not appear to be in any acute distress. Head/Eyes/Ears/Nose/Throat: She can hear my spoken words and see near objects. She does not have any white patches in her mouth. There is no drainage from her nose or ears. Neck: No meningismus. Thorax: I attempted to feel where the patient's pacemaker is but I could not feel it because of the patient's obesity, and when the patient tried to feel where the pacemaker is, she could not feel it either but she told me it was implanted on the left side. Lungs: There were diminished breath sounds on the left side. The right side was clear. Cardiovascular: Heart rate is regular. Abdomen: Soft and nontender. Neurologic: The patient is awake. She can move her extremities. There is no tremor. Her sensation is intact to touch. Her memory as regarding her medical history was decreased. Thank you for the consult. cc: Zaid Mancilla MD MTDD
--- NOTE | 2018-10-28 10:58 | PROGRESS NOTE ---
DATE: 10/28/2018 SUBJECTIVE: Patient is not complaining of chest pain or shortness of breath. She feels tired, has generalized edema, including her abdominal wall. She has CKD, and even though the creatinine is around her baseline, her urine output is low with a reported output yesterday of 250 and today 700, a positive balance of 15.9 L. Last bowel movement reported to be on 2018. I will put her on stool softener. Leukocyte count is still elevated and actually trending up. She is being treated for sepsis, and she has a positive culture from the bronchial wash/ bronchoscopy that showed Pseudomonas and Haylee. I do believe Infectious Disease department should be on should be on board, as well as Nephrology department. As per the patient, she used she used to walk with a walker, but basically, she has been bedbound during this hospitalization because of her severe weakness. This is what the patient said. OBJECTIVE: Vital Signs: Temperature 98 degrees, pulse 118, respiratory rate 16 , blood pressure 176/46, oxygen saturation 100% on 4 L of nasal cannula. HEENT: Head normocephalic, no trauma. PERRLA. Neck: Supple. I cannot see JVD because of her neck size. Central trachea. Chest: Decreased breath sounds mostly on the left side from the midportion down. Abdomen: Obese, nontender. Abdominal wall edema. Extremities: There is 2+ to 3+ lower extremity edema. No clubbing. No cyanosis. She also has upper extremity edema bilaterally. Cardiovascular: Irregularly irregular rate and rhythm. Neurological: Alert and oriented x3. No focal deficits. LABORATORY DATA: WBC 18.9 hemoglobin 8.3, hematocrit 25.9, platelets 259,000. Sodium 139, potassium 3.9, chloride 103, bicarbonate 24, BUN 34, creatinine 2.2, glucose 109 , calcium 8.2. Lactate yesterday was high at 2.5, today 1.7. ASSESSMENT AND PLAN: 1. Sepsis. This patient has been hypotensive, but I am not quite sure about her blood pressure because she has bilateral upper and lower extremity edema, we cannot take the blood pressure on the left upper extremity due to her recent history of DVT and she had a mastectomy done on the right side with likely lymphedema. Blood pressure at the lower extremity has been low. At this moment, the heart rate is in the 90s on the monitor. I have placed a consult for Infectious Disease department to evaluate this patient. I will wait for Nephrology department also to evaluate this patient. Probably this patient will need to be transferred to the ICU, and if we cannot use the upper extremities or lower extremity to have an accurate blood pressure, probably we need to use an arterial line. 2. Acute hypoxemic respiratory failure due to left lung collapse due to mucus plug superimposed with Haylee albicans infection with Pseudomonas infection. Apparently, she had already a few bronchoscopies done, and the last one on October with suction of the mucus. Apparently no malignancy. Oxygen saturation has been stable. 3. Hemoptysis, likely secondary to enoxaparin use and possibility of minor trauma sustained at the time of bronchoscopy. She is not having hemoptysis at this moment. 4. Chronic kidney disease, stage 3 to 4. Even though the creatinine has been stable, the urine output is really low, and she has anasarca and more than 15 L of positive balance. I think I need at this moment the help of Nephrology department to evaluate this patient. 5. History of atrial fibrillation and bradycardia status post pacemaker. Continue with the same management. I do believe she was on Xarelto before. As soon as we can, I will put her back on that medication. 6. Left lower extremity deep vein thrombosis (DVT). Continue with Lovenox therapeutic dose for now. 7. Thrombocytopenia, resolved. 8. Normocytic anemia. We will monitor. DISPOSITION: I do not think this patient is ready to be discharged. She is weak. Physical Therapy has been working on this patient, and I have placed a consult for Occupational Therapy as well. She has anasarca and weakness. Probably this patient will need to go to a rehabilitation center upon discharge. cc: Evan Rosenthal MD MTDD
[2018-10-28] MEDS: MYCAMINE 100 MG in NS 100 ML IV SCH (11:09)
[2018-10-28] MEDS: MUCOMYST 20% INH SCH ×2 (11:57→19:52)
[2018-10-28] MEDS: TOBRAMYCIN MISC SCH ×2 (11:57→19:52)
[2018-10-28] MEDS: ADVAIR 250/50 DISKUS INH SCH ×2 (11:58→19:51)
--- NOTE | 2018-10-28 15:35 | NEPHROLOGY CONSULTATION ---
DATE: 10/28/2018 REASON FOR ADMISSION: Abdominal pain associated with nausea and vomiting and some increased work of breathing. REASON FOR CONSULT: Chronic kidney disease stage 4, anasarca with decreased urinary output. CONSULTING PHYSICIAN: Dr. Rosenthal. HISTORY OF PRESENT ILLNESS: Ms. Ruiz is a 73-year-old female who has been seen by our practice in the past, last seen in our office on 02/15/2018. At that time, a creatinine of 1.8 to 2. The patient has chronic edema. She is to be on a fluid restriction of 1.5 L and does take Lasix. She had missed her follow-up appointment in our office on 2017 and received notice and has not called to follow up with further appointments. Unfortunately , the patient reported to [facility] via EMS with complaints of left-sided abdominal pain, left upper and lower quadrant, with nausea and vomiting. States that she had tried Pepto-Bismol. CT of the abdomen and pelvis without contrast showed bibasilar arterial and several loops of small bowel with no significant distention. Nonspecific findings showed body wall edema. Subsequently, she was evaluated by Dr. Henry. She was kept NPO. IV fluids were given for management of pain and nausea. Antiemetics were given. After bowel rest, she developed increased work of breathing. Pulmonology was then consulted. Dr. Dickerson had seen her during her hospitalization. She had been transferred to [facility]. She was in the ICU. Patient has received 3 left lung bronchoscopies. Her left lung biopsy on 10-20, indicated Pseudomonas and Haylee albicans. She now has Dr. Mancilla on board who has now changed her medications to cefepime, micafungin, and tobramycin inhaler. During her hospitalization she was evaluated by Dr. Leonard for thrombocytopenia, which has improved and she continues to have an increased platelet count this a.m. of 259,000. During her entire hospitalization it was noted that her BUN and creatinine have remained at her historical baseline creatinine of 2.2. It is of concern that she has developed increased lower extremity swelling up into the midabdominal area. After evaluation, it is noted that she is 16 L positive since her admission. She has not been able to receive any of her Lasix in the last 48 hours due to hypotension. The patient was subsequently sent to [facility] for further monitoring and evaluation. Blood pressure this a.m. is 84/32. She is currently receiving her tobramycin inhaler with respiratory at her bedside. She is very weak. She is unable to relate a full history in regards with her hospitalization; most obtained from the chart. The patient has a central line placed to the right IJ. She has a DVT and is currently on Lovenox to the left upper extremity, followed by Dr. Henry. Due to these current findings, patient does at this time deny chest pain. Positive for increased work of breathing. Positive for cough and congestion. She has a productive cough; she stated last seen of green. She denies any chills. She has not had any fever indicated since her hospitalization. She remains on O2 supplementation at 100 mL an hour. It is noted that the patient's weight is up to 140 kg; this is per bed scale. Patient has been unable to get out of bed and has been mostly bed-bound since her hospitalization. She denies any nausea, vomiting. No diarrhea. She has a Flynn catheter in place. She has had 700 mL documented out in the last 24 hours. She has 150 mL in her Flynn catheter bag. It is also noted when patient was on the floor prior to the she has had no urine output documented. PAST MEDICAL HISTORY: Chronic kidney disease stage 3B/4. Baseline creatinine is at 2. She remains at her baseline. Diabetes mellitus type 2. She is on pattern blood sugars. Atrial fibrillation with bradycardia. She also has a post permanent pacemaker placed to the left. Hypertension, hyperlipidemia, iron deficiency anemia, anemia of chronic disease , history of breast cancer, morbid obesity, COPD. PAST SURGICAL HISTORY: Right mastectomy, section, permanent pacemaker placement. SOCIAL HISTORY: She lives with her family. She denies tobacco, alcohol, or illicit drug use. States that she quit smoking over 30 years ago. FAMILY HISTORY: Negative for end-stage renal disease, though positive for hypertension. ALLERGIES: Listed as Macrodantin. HOME MEDICATIONS: Reviewed and were atorvastatin, calcium, Coreg, Pepcid, ferrous sulfate, Advair, Lasix 120 a.m. and 80 mg p.m., [place], hydroxyzine, irbesartan, potassium chloride, Xarelto. REVIEW OF SYSTEMS: Obtained per patient and history obtained from chart with pertinent positives listed above in the HPI. VITAL SIGNS: Temperature is 98 degrees, blood pressure 76/46, heart rate 118, respirations are 16. She is on 4 L nasal cannula. Last recorded saturation is 100%. LAB: Sodium 139, potassium 3.9, chloride 103, CO2 24, BUN 34, creatinine 2.2, glucose 109. Her anion gap is 12, calcium is 8.2. We have requested an albumin. This is currently pending. Her last albumin was 2.7 on the . Next white count 18.99, hemoglobin 8.3, hematocrit 25.9, with a platelet count of 259,000. Patient's last plasma lactate was 1.7. Bronchial washing shows Pseudomonas and Haylee albicans from the left main lung. Patient's last chest x-ray completed on the indicated stable chest, opacification shown on the left hemithorax, mild pulmonary venous congestion on the right, no new consolidation on the left. PHYSICAL EXAMINATION: General: This is a 73-year-old female resting quietly in bed. She appears chronically ill, no acute distress. Skin: Warm and dry. HEENT: Normocephalic, atraumatic. Conjunctivae pale. She has [place]. Mucous membranes are moist. She is currently receiving a respiratory treatment. Neck: Supple. Unable to determine JVD. She has a CVL to the right IJ. Cardiovascular: She is irregularly irregular. S1, S2 noted. Unable to detect any extra heart sounds. Chest: The patient has had a left nephrectomy. Unable to palpate her pacemaker on the left. Lungs: Diminished breath sounds total on the left. She does have clear breath sounds to the right. She remains on O2 supplementation. Abdomen: Large, obese, soft. Hypoactive bowel sounds auscultated, more than likely secondary to body habitus. Genitourinary: Not inspected. Flynn catheter is in place. She does have greater than 150 mL to her Flynn bag this a.m., clear yellow urine, straw in color. Extremities: Patient has trace to 2 to 3+ lower extremity edema. This goes up into her abdominal wall. There is no clubbing or cyanosis. Upper extremities do have edema bilaterally. Neurological: Patient is alert and oriented x3. Integumentary: The patient has swelling with erythematous area to the left upper extremity from her antecubital up into her right axilla area. This is tender to touch. Warm to touch. ASSESSMENT AND PLAN: 1. Chronic kidney disease stage 4. Patient remains at her historical baseline. 2. Fluid volume overload. The patient remains at her CKD baseline. Okay from our perspective to give large doses of diuretics. We will check an albumin level to see if she requires any extra albumin dosing. The patient remains hypotensive. It appears that she has missed her last 2 days of diuretic therapy due to hypotension. The patient may need transfer to the ICU for pressor support, enabling us to continue to give large doses of diuretics to assist with her 16 L positive fluid balance. 3. Electrolytes and acid-base balance. These are stable. 4. Anemia. This is low but acceptable. 5. Leukocytosis. Patient is septic secondary to left lung pneumonia. Followed by Dr. Mancilla. The patient continues on renal-dosed cefepime, micafungin, and tobramycin inhaler. I would like to thank you for allowing us to follow with this patient. Dictated by DAVID Marrero for Pankaj De MD cc: DAVID Marrero MD [facility]
[2018-10-28] MEDS ORDERED: NEO-SYNEPHRINE 50 MG in NS 250 ML IV SCH (20:00)
[2018-10-28] MEDS: GYNE-LOTRIMIN VAGINAL CREAM VAG SCH (21:25)
[2018-10-28] MEDS: FERROUS SULFATE PO SCH (21:25)
[2018-10-28] MEDS: LIPITOR PO SCH (21:25)
[2018-10-29] MEDS: XOPENEX NEB INH SCH ×4 (03:40→20:00)
[2018-10-29] MEDS: ATROVENT NEB INH SCH ×4 (03:40→20:00)
[2018-10-29 05:42] LABS: ALB/GLOB RATIO 0.8; ALBUMIN 2.4 g/dL (3.5-5.0); CALCIUM 8.5 mg/dL (8.8-10.2); CREATININE 2.5 mg/dL (0.5-0.9); POTASSIUM 3.5 mmol/L (3.5-5.1); TOTAL BILIRUBIN 0.91 mg/dL (0.20-1.00); TOTAL PROTEIN 5.3 g/dL (6.3-8.3)
[2018-10-29 05:43] LABS: BASO# 0.07 X1000 (0.0-0.2); BASO% 0.3 % (0.0-0.8); EOS# 0.67 X1000 (0.0-0.7); EOS% 3.1 % (0.0-10.0); HEMATOCRIT 27.5 % (37.0-47.0); HEMOGLOBIN 8.9 g/dL (12.0-16.0); IMM GRAN# 0.14 X1000 (0.0-0.04); IMM GRAN% 0.7 % (0.0-0.5); LYMPH# 1.36 X1000 (1.2-3.4); LYMPH% 6.3 % (20.5-51.1); MCH 29.2 PG (27-31); MCHC 32.4 g/dL (33-37); MCV 90.2 FL (81-99); MONO# 2.31 X1000 (0.11-0.59); MONO% 10.8 % (1.7-9.3); MPV 11.5 FL (7.4-10.4); NEUT# 16.87 X1000 (1.4-6.5); NEUT% 78.8 % (42.2-75.2); PLT 276 X1000 (130-400); RBC 3.05 XMIL (4.2-5.4); WBC 21.42 X1000 (4.8-10.8)
[2018-10-29 06:10] LABS: EOS 4 % (1-10); LYMPHS 8 % (21-51); MONO 12 % (1-9); SEGS 76 % (42-75)
[2018-10-29] MEDS: LASIX IV SCH ×2 (07:11→18:09)
--- NOTE | 2018-10-29 07:35 | Diag Imaging Result Doc PS360 ---
CHEST-1 VIEW - 10/29/2018 INDICATION: SOB COMPARISON: 10/26/2018 FINDINGS: Stable complete opacification of the left hemithorax. Stable right central line. Stable left-sided pacemaker. In the right lung there is pulmonary vascular congestion but no infiltrates or edema. IMPRESSION: No change from prior. Electronically signed by Reji Trejo 10/29/2018 7:33 AM
--- NOTE | 2018-10-29 08:00 | PROGRESS NOTE ---
DATE: 10/29/2018 SUBJECTIVE: This patient has been transferred to the ICU and she has been placed on pressors, blood pressure seems to be better. I have increased the dose of Lasix from 80 p.o. daily to 80 IV twice a day. Nephrology Department on board as well as Pulmonary Department and Hematology Oncology Department. At this moment, she is sleepy but arousable. She is oriented. She does have generalized weakness. OBJECTIVE: Vital Signs: Temperature 98.6 degrees, pulse 114, respiratory rate 16, blood pressure 102/33, oxygen saturation 100% on 3 L of nasal cannula. HEENT: Head normocephalic. No trauma. PERRLA. Neck: Supple. I cannot see JVD because of her neck size. Central trachea. Chest: Decreased breath sounds, mostly on the left side from the midlung down. Abdomen: Obese, nontender. Abdominal wall edema which is generalized. Extremities: There is 2+ to 3+ lower extremity edema. No clubbing. No cyanosis. She also has upper extremity edema bilaterally 3+ as well. Cardiovascular: Irregularly, irregular rate and rhythm. Neurological: This patient is sleepy but arousable. Oriented x3. No deficits but weakness. LABORATORY DATA: WBC 21.4, hemoglobin 8.9, hematocrit 27.5, platelets 276,000. Sodium 136, potassium 3.5, chloride 101, bicarbonate 24, BUN 37, creatinine 2.5, glucose 138, calcium 8.5, albumin 2.4. ASSESSMENT AND PLAN: 1. Sepsis with likely septic shock, this patient now is on pressors. She does have pseudomonal pneumonia and probably Haylee pneumonia as well. Infectious Disease on board. Continue with antibiotics. 2. Acute hypoxemic respiratory failure due to lung collapse due to mucus plug superimposed with Haylee albicans and pseudomonal pneumonia infection. Infectious Disease on board. Pulmonary Department on board. She already had a few bronchoscopies done, the last one on October 20 with suction of the mucus, apparently no malignancy. Oxygen saturation has been stable. 3. Hemoptysis likely secondary to enoxaparin use and the possibility of minor trauma sustained at the time of bronchoscopy, this is basically resolved. 4. Chronic kidney disease, stage 3 to 4. Creatinine has been at baseline. Blood pressure is a little bit better because she has been placed on pressors. We have a positive balance of 17 L. I have increased the dose of Lasix to 80 IV twice a day but probably will be increased even more. 5. History of atrial fibrillation and bradycardia status post pacemaker. Continue with same management. I think she has been on Xarelto before. At this moment, she is getting Lovenox twice a day so we will continue with the same management and once we are close to discharge, likely we will put this patient back on Xarelto. 6. Left lower extremity deep venous thrombosis. Continue with Lovenox therapeutic dose for now. 7. Thrombocytopenia, resolved. 8. Normocytic anemia. Will monitor. CRITICAL CARE TIME: 40 minutes. cc: Evan Rosenthal MD
[2018-10-29] MEDS: MUCINEX PO SCH ×2 (08:47→20:29)
[2018-10-29] MEDS: MIRALAX PO SCH ×2 (08:47→20:30)
[2018-10-29] MEDS: PEPCID PO SCH ×2 (08:48→20:29)
[2018-10-29] MEDS: LOVENOX SUBQ SCH ×3 (08:49→21:26)
[2018-10-29] MEDS: TOBRAMYCIN MISC SCH ×3 (09:57→19:30)
[2018-10-29] MEDS: LOPRESSOR PO SCH ×2 (09:57→20:33)
[2018-10-29] MEDS: FOLIC ACID PO SCH (09:58)
[2018-10-29] MEDS: MYCAMINE 100 MG in NS 100 ML IV SCH (10:00)
[2018-10-29] MEDS: MAXIPIME 2 GM in NS 100 ML IV SCH ×2 (10:03→21:26)
[2018-10-29] MEDS: MUCOMYST 20% INH SCH ×2 (10:27→20:00)
[2018-10-29] MEDS: ADVAIR 250/50 DISKUS INH SCH ×2 (10:28→19:35)
[2018-10-29] MEDS: ALBUMIN 25% IV SCH (14:56)
--- NOTE | 2018-10-29 18:34 | NEPHROLOGY PROGRESS NOTE ---
DATE: 10/29/2018 SUBJECTIVE: She tells me that she has been here for all month and she is concerned that she is swelling and that her diuretics have been discontinued. She was moved down to the intensive care unit because her blood pressure was difficult to monitor and vasopressor support was added. She is awake, alert, appropriate. OBJECTIVE: Vital Signs: Blood pressure 126/71, heart rate 111, respiration 18. Intake 1.8 L. Output 200 mL. General: No acute distress. Skin: Warm and dry. Neck: Neck veins are not appreciated. Heart: Regular. Lungs: Equal. No crackles. Abdomen: Soft, obese, nontender. Bowel sounds present. Extremities: Have 3+ edema. No clubbing or cyanosis. IMPRESSION: 1. Hypotension. I believe this was an artifact. We repositioned her blood pressure cuff to the right arm and were able to easily titrate off her vasopressor support. 2. Chronic kidney disease. Baseline creatinine 1.5 to 2. I do not believe she is significantly off of her baseline at this point. 3. Volume status. We added IV albumin yesterday. I will restart her furosemide today. No other changes. cc: Pankaj De MD
[2018-10-29] MEDS: FERROUS SULFATE PO SCH (20:29)
[2018-10-29] MEDS: LIPITOR PO SCH (20:30)
[2018-10-29] MEDS: GYNE-LOTRIMIN VAGINAL CREAM VAG SCH (20:31)
--- NOTE | 2018-10-29 22:22 | INFECTIOUS DISEASE PROGRESS NO ---
DATE: 10/29/2018 The patient has a Pseudomonas and Haylee pneumonia. Unfortunately, there is complete opacification of the left chest. MEDICATIONS: The patient is receiving cefepime and micafungin IV and tobramycin by inhalation. This is the first day of treatment with those 3 agents. PHYSICAL EXAMINATION: Vital Signs: Temperature is 98.8, pulse 103, respirations 22, blood pressure 98/53. General: This is an obese, elderly female. She is in no acute distress. Head/eyes/ears/nose/throat: She can hear my spoken words and see near objects. She does not have any white patches on her tongue. Thorax: She has an increased AP diameter of the chest. Lungs: Clear to auscultation. There were distant breath sounds. Cardiovascular: Heart rate is irregular. Abdomen: Soft and nontender. Extremities: Patient has bilateral leg edema but no erythema. Neurologic: The patient is arousable. She does not have a tremor. ASSESSMENT AND PLAN: The patient has a difficult to treat Pseudomonas and Haylee pneumonia. My plan is to continue with IV cefepime and micafungin and tobramycin by inhalation. INFECTIOUS DISEASE HISTORY: Positive for pneumonia and UTI. The patient has a pacemaker in the chest, but I cannot feel it and the patient could not either. MEDICATIONS: The patient is on cefepime and micafungin IV and tobramycin by inhalation. LAB AND X-RAY: Chest x-ray shows opacified left hemithorax. CBC shows a white count 21,420, hemoglobin 8.9, platelet count 276,000. Creatinine is 2.8. GFR is 23. Urinalysis showed white cells and no bacteria. Chest x-ray showed left opacified hemithorax. ASSESSMENT AND PLAN: Patient has a Pseudomonas and a Haylee pneumonia. My plan is to continue with cefepime and micafungin. This is day 1 for both of these medications. COMORBIDITIES: Diabetes mellitus, morbid obesity. The patient does have a pacemaker but I could not feel it when I examined the patient. cc: Zaid Mancilla MD
[2018-10-30] MEDS: ATROVENT NEB INH SCH ×4 (03:26→19:10)
[2018-10-30] MEDS: XOPENEX NEB INH SCH ×4 (03:26→19:10)
[2018-10-30 04:16] LABS: ALLEN TEST YES; BE -1.8 mmoll (-3.0-3.0); BLOOD TYPE ARTERIAL; HCO3-(ACT) 23.5 mmoll (20.0-26.0); METHB 1.2 % (0.0-1.5); O2(CT) 11.3 mL/dL (15.0-23.0); O2HB 96.5 % (95.0-99.0); PCO2(98.6) 39 mmHg (35-45); PO2(98.6) 99 mmHg (60-100); SAMPLE BLOOD; SAO2 99.5 % (95.0-100.0); THB 8.2 g/dL (11.5-17.4); pH(98.6) 7.38 (7.35-7.45)
[2018-10-30 04:18] LABS: MODALITY CANNULA
[2018-10-30] MEDS: LASIX IV SCH (05:55)
[2018-10-30 06:07] LABS: BASO# 0.06 X1000 (0.0-0.2); BASO% 0.5 % (0.0-0.8); EOS# 0.65 X1000 (0.0-0.7); EOS% 5.7 % (0.0-10.0); HEMATOCRIT 24.7 % (37.0-47.0); HEMOGLOBIN 8.1 g/dL (12.0-16.0); IMM GRAN# 0.13 X1000 (0.0-0.04); IMM GRAN% 1.1 % (0.0-0.5); LYMPH# 0.85 X1000 (1.2-3.4); LYMPH% 7.5 % (20.5-51.1); MCHC 32.8 g/dL (33-37); MCV 88.5 FL (81-99); MONO% 12.4 % (1.7-9.3); MPV 11.8 FL (7.4-10.4); NEUT# 8.23 X1000 (1.4-6.5); NEUT% 72.8 % (42.2-75.2); PLT 206 X1000 (130-400); RBC 2.79 XMIL (4.2-5.4); WBC 11.32 X1000 (4.8-10.8)
[2018-10-30 06:20] LABS: CALCIUM 8.3 mg/dL (8.8-10.2); CREATININE 2.7 mg/dL (0.5-0.9)
--- NOTE | 2018-10-30 08:17 | Diag Imaging Result Doc PS360 ---
EXAM: CHEST-1 VIEW INDICATION: SOB TECHNIQUE: One view COMPARISON: 10/29/2018 FINDINGS: There is stable complete opacification of the left hemithorax. The right central line is stable. Pulmonary venous congestion on the right appears to have improved slightly. No new consolidation is identified. IMPRESSION: Slight improvement of pulmonary venous congestion on the right. Electronically signed by Daquan Sharp 10/30/2018 8:15 AM
[2018-10-30] MEDS: ALBUMIN 25% IV SCH (08:30)
[2018-10-30] MEDS: MIRALAX PO SCH ×2 (08:31→20:41)
[2018-10-30] MEDS: MUCINEX PO SCH ×2 (08:31→20:40)
[2018-10-30] MEDS: PEPCID PO SCH ×2 (08:31→20:40)
[2018-10-30] MEDS: LOVENOX SUBQ SCH ×3 (08:31→22:06)
[2018-10-30] MEDS: FOLIC ACID PO SCH (08:32)
[2018-10-30] MEDS: ADVAIR 250/50 DISKUS INH SCH ×2 (09:44→19:10)
[2018-10-30] MEDS: MUCOMYST 20% INH SCH ×2 (09:46→19:10)
[2018-10-30] MEDS: LOPRESSOR PO SCH ×2 (10:14→20:41)
[2018-10-30] MEDS: MAXIPIME 2 GM in NS 100 ML IV SCH ×2 (10:14→20:45)
[2018-10-30] MEDS: MYCAMINE 100 MG in NS 100 ML IV SCH (10:14)
--- NOTE | 2018-10-30 10:35 | PROGRESS NOTE ---
DATE: 10/30/2018 SUBJECTIVE: The patient is lying comfortably in bed, no acute events overnight. She is not complaining of any specific problems at this moment. She does have generalized weakness. Chest x- ray showed a complete opacification of the left hemithorax. In the right lung, there is a pulmonary vascular congestion, but no infiltrates or edema. Vital signs are stable. Oxygen saturation has been stable with 2 L of nasal cannula. Even though she has been getting albumin and she has been getting Lasix IV 80 twice a day, she is not having significant urine output. Actually, we have a positive balance from yesterday. I will let Nephrology to re-evaluate this patient, but for now, we will continue with the same management. OBJECTIVE: Vital Signs: Temperature 98.5 degrees, pulse 91, respiratory rate 16, blood pressure 98/58, and oxygen saturation 100% on 2 L of nasal cannula. HEENT: Head normocephalic. No trauma. PERRLA. Neck: Supple. I cannot see JVD because of her neck size. Central trachea. Chest: Decreased breath sounds globally mostly on the left side completely. Abdomen: Obese. Nontender. Abdominal wall edema which is generalized. Extremities: 2+ lower extremity edema all the way up to the thigh. The level of the thigh is 3+. No clubbing. No cyanosis. She also has upper extremity edema bilaterally. Cardiovascular: Irregularly irregular rate and rhythm. Neurological: This patient is sleepy but arousable. Oriented x3. No deficits, but generalized weakness. LABORATORY: WBC 11.3, hemoglobin 8.1, hematocrit 24.7, and platelets 206,000. Sodium 136, potassium 4, chloride 101, bicarbonate 22, BUN 43, creatinine 2.7, glucose 112, and calcium 8.3. ASSESSMENT AND PLAN: 1. Sepsis. She was having low blood pressure, but I do believe was an artifact. It is really hard to get a blood pressure on this patient because of her current condition. 2. Obesity, edema and right-sided mastectomy and left-sided upper extremity, left upper extremity DVT, left axillary vein, but the blood pressure has been stable. She is not requiring pressors at this moment. She does have pseudomonal pneumonia, and likely Haylee pneumonia as well. Infectious Disease on board. Continue with antibiotics. 3. Acute hypoxemic respiratory failure due to lung collapse due to mucus plug superimposed with Haylee albicans and Pseudomonas pneumonia infection. Infectious Disease on board as well as Pulmonary Department. She already has had a bronchoscopy done. I think the last one was on 10/20 with suction of the mucus. Apparently, no malignancy. Oxygen has been stable. 4. Hemoptysis likely secondary to enoxaparin use that has been resolved. 5. Chronic kidney disease stage 3 to 4. Creatinine is elevated compared with baseline. She is not making a significant urine output even though she has been placed on furosemide IV twice a day, and she is getting albumin. Nephrology Department on board. Hopefully, she will respond to the treatment, and we can avoid dialysis. 6. History of atrial fibrillation with history of atrial fibrillation and bradycardia status post pacemaker placement. Continue with same management. She is getting Lovenox twice a day. I think she has been on Xarelto before. Once she is close to discharge if she gets better, probably we can put this patient back on her treatment. 7. Left upper extremity DVT. Continue with anticoagulation. 8. Thrombocytopenia resolved. 9. Normocytic anemia. We will monitor. CRITICAL CARE TIME: 40 minutes. cc: Evan Rosenthal MD
[2018-10-30] MEDS ORDERED: LASIX IV SCH (15:50)
[2018-10-30] MEDS: LASIX 200 MG in NS 25 ML IV SCH (16:50)
--- NOTE | 2018-10-30 17:22 | NEPHROLOGY PROGRESS NOTE ---
DATE: 10/30/2018 SUBJECTIVE: She is complaining about her swelling. She states it really has not improved and urine output has remained low. No shortness of breath, nausea or vomiting. OBJECTIVE: Vital Signs: Blood pressure 90/40, heart rate 88, respiration 18, afebrile. Intake 1.9 L. Output 400 mL. General: Morbidly obese but no acute distress. Skin: Warm and dry. Neck: Neck veins are not appreciated. Heart: Regular and distant. Lungs: Equal. No crackles. Abdomen: Soft, nontender. Bowel sounds are present. Extremities: Have 3+ edema. There is erythema on the left arm and on the chest. IMPRESSION: Chronic kidney disease with volume overload. She is receiving intravenous albumin and I will increase her Lasix to 200 mg twice daily over the next 48 hours and reassess her response. cc: Pankaj De MD
[2018-10-30] MEDS: TOBRAMYCIN MISC SCH (19:10)
[2018-10-30] MEDS: FERROUS SULFATE PO SCH (20:40)
[2018-10-30] MEDS: LIPITOR PO SCH (20:40)
[2018-10-30] MEDS: GYNE-LOTRIMIN VAGINAL CREAM VAG SCH (20:41)
[2018-10-31] MEDS ORDERED: BLISTEX MEDICATED BERRY LIP BALM TOP PRN (02:03)
[2018-10-31] MEDS: XOPENEX NEB INH SCH ×5 (03:35→21:06)
[2018-10-31] MEDS: LASIX 200 MG in NS 25 ML IV SCH ×2 (04:03→15:45)
[2018-10-31 05:57] LABS: BASO# 0.06 X1000 (0.0-0.2); BASO% 0.6 % (0.0-0.8); EOS# 0.22 X1000 (0.0-0.7); HEMATOCRIT 24.3 % (37.0-47.0); HEMOGLOBIN 8.2 g/dL (12.0-16.0); IMM GRAN# 0.23 X1000 (0.0-0.04); IMM GRAN% 2.1 % (0.0-0.5); LYMPH# 0.97 X1000 (1.2-3.4); MCH 29.7 PG (27-31); MCHC 33.7 g/dL (33-37); MONO# 1.32 X1000 (0.11-0.59); MONO% 12.3 % (1.7-9.3); MPV 11.4 FL (7.4-10.4); NEUT# 7.94 X1000 (1.4-6.5); PLT 204 X1000 (130-400); RBC 2.76 XMIL (4.2-5.4); WBC 10.74 X1000 (4.8-10.8)
[2018-10-31 06:24] LABS: CALCIUM 9.2 mg/dL (8.8-10.2); CREATININE 2.7 mg/dL (0.5-0.9)
[2018-10-31 06:41] LABS: BANDS 10 % (0-1); EOS 2 % (1-10); LYMPHS 8 % (21-51); MONO 2 % (1-9); SEGS 78 % (42-75)
--- NOTE | 2018-10-31 07:49 | Diag Imaging Result Doc PS360 ---
EXAM: CHEST-1 VIEW INDICATION: SOB TECHNIQUE: One view COMPARISON: 10/30/2018 FINDINGS: The right central line is in stable position. There is stable complete opacification of the left hemithorax. Pulmonary venous congestion on the right is stable. No new consolidation is identified. Cardiac silhouette is stable. IMPRESSION: Stable chest. Electronically signed by Daquan Sharp 10/31/2018 7:46 AM
[2018-10-31] MEDS: MUCINEX PO SCH ×2 (08:47→20:42)
[2018-10-31] MEDS: FOLIC ACID PO SCH (08:47)
[2018-10-31] MEDS: PEPCID PO SCH ×2 (08:47→20:42)
[2018-10-31] MEDS: MIRALAX PO SCH ×2 (08:47→20:42)
[2018-10-31] MEDS: LOPRESSOR PO SCH ×2 (08:49→20:44)
[2018-10-31] MEDS: ADVAIR 250/50 DISKUS INH SCH ×2 (09:04→19:32)
[2018-10-31] MEDS: MUCOMYST 20% INH SCH ×2 (09:04→21:06)
[2018-10-31] MEDS: ATROVENT NEB INH SCH ×4 (09:05→21:06)
[2018-10-31] MEDS: TOBRAMYCIN MISC SCH ×2 (09:20→19:32)
[2018-10-31] MEDS: ALBUMIN 25% IV SCH (09:22)
[2018-10-31] MEDS: MYCAMINE 100 MG in NS 100 ML IV SCH (09:22)
[2018-10-31] MEDS: MAXIPIME 2 GM in NS 100 ML IV SCH ×2 (09:28→20:47)
[2018-10-31] MEDS: LOVENOX SUBQ SCH ×3 (10:30→21:12)
[2018-10-31] MEDS: LIPITOR PO SCH (20:42)
[2018-10-31] MEDS: FERROUS SULFATE PO SCH (20:42)
[2018-10-31] MEDS: GYNE-LOTRIMIN VAGINAL CREAM VAG SCH (20:44)
--- NOTE | 2018-10-31 23:13 | PROGRESS NOTE ---
DATE: 10/31/2018 SUBJECTIVE: Patient resting in bed. OBJECTIVE: Vital signs: Temperature 97.9 degrees, pulse 111, respiratory is 18, blood pressure is 145/42. HEENT: She is atraumatic, normocephalic. Cardiovascular: S1, S2. Respiratory: Has evidence of good air entry bilaterally. Abdomen: Soft, nontender. No masses felt. Extremities: No evidence of edema. Central nervous system: No obvious focal deficit noted. ASSESSMENT AND PLAN: 1. Sepsis/pneumonia. Antibiotics per Infectious Disease Team. 2. Hemoptysis. This seems to have resolved. Thought to be secondary to Lovenox. 3. Chronic kidney disease. Nephrology following. 4. Atrial fibrillation. Management by the Cardiology team. cc: Onofre Alba MD
[2018-11-01] MEDS: ATROVENT NEB INH SCH ×4 (03:24→22:42)
[2018-11-01] MEDS: XOPENEX NEB INH SCH ×4 (03:24→22:42)
[2018-11-01] MEDS: LASIX 200 MG in NS 25 ML IV SCH (04:17)
[2018-11-01] MEDS ORDERED: D50W SYRINGE IV ONE (06:28)
[2018-11-01 06:55] LABS: ALBUMIN 3.9 g/dL (3.5-5.0); CALCIUM 9.4 mg/dL (8.8-10.2); CREATININE 3.3 mg/dL (0.5-0.9); PHOSPHORUS 3.3 mg/dL (2.7-4.5); POTASSIUM 4.1 mmol/L (3.5-5.1)
--- NOTE | 2018-11-01 07:02 | Diag Imaging Result Doc PS360 ---
EXAM: CHEST-1 VIEW 11/01/2018 HISTORY: SOB TECHNIQUE: AP portable at 0552 COMMENT: There is a right internal jugular central venous catheter with its tip in the superior vena cava. There is a pacemaker on the left. There is shift of the mediastinum to the right. There is most likely a large left pleural effusion as well as atelectasis versus pneumonia opacifying the entire left lung. There may be slight improvement in pneumatization of the left lung since 10/31/2018. The mediastinal shift is worse however. IMPRESSION: Left pleural effusion. Improving atelectasis of the left lung. Electronically signed by Carlo Shelton 11/01/2018 6:59 AM
[2018-11-01] MEDS ORDERED: LASIX IV ONE (07:41)
[2018-11-01] MEDS ORDERED: ALBUMIN 25% IV ONE (07:43)
[2018-11-01] MEDS: ADVAIR 250/50 DISKUS INH SCH ×2 (08:09→19:42)
[2018-11-01] MEDS: TOBRAMYCIN MISC SCH ×2 (08:30→19:27)
--- NOTE | 2018-11-01 08:59 | INFECTIOUS DISEASE PROGRESS NO ---
DATE: 11/01/2018 PRESENT ILLNESS: The patient has a Pseudomonas and Haylee pneumonia. MEDICATIONS: This is day 4 of treatment with IV cefepime and micafungin and tobramycin by inhalation. PHYSICAL EXAMINATION: Vital Signs: Temperature is 98.5 degrees, pulse is 110, respirations 23, blood pressure 105/56. The patient weighs 315 pounds. General: This is an obese, elderly female. She seems to be delirious. HEENT: No drainage noted from the nose or ears. I could not get a view of her mouth. Neck: No stiffness. L side cath site is not swollen or draining. Lungs: Clear on the right and diminished breath sounds on the left side. Cardiovascular: Heart rate is irregular. Thorax: The patient has an increased AP diameter of the chest. The patient has a pacemaker present on the left side, but because of the patient's morbid obesity, I cannot feel it in the chest. Abdomen : Soft and nontender. Extremities: The patient has bilateral leg edema, but no erythema. Neurologic: The patient is delirious. She does not have a tremor. She does not respond to verbal stimuli. Integument: Skin is peeling on her face and arms. LAB AND RADIOLOGY: Creatinine is 3.3, the GFR is 17. Chest x-ray shows L side pleural effusion and improved L lung atelectasis. ASSESSMENT AND PLAN: The patient has Pseudomonas and Haylee pneumonia. I plan to continue with cefepime and micafungin IV, and tobramycin by inhalation. There is complete opacification of the left chest, the exact etiology of which I am uncertain. COMORBIDITIES: She has diabetes mellitus and she is morbidly obese. cc: Zaid Mancilla MD [facility]
[2018-11-01] MEDS: MUCOMYST 20% INH SCH ×2 (09:20→22:41)
[2018-11-01] MEDS ORDERED: D50W SYRINGE IV PRN ×2 (09:45→10:02)
[2018-11-01] MEDS: FOLIC ACID PO SCH (10:03)
[2018-11-01] MEDS: PEPCID PO SCH (10:04)
[2018-11-01] MEDS: MIRALAX PO SCH (10:05)
[2018-11-01] MEDS: MUCINEX PO SCH (10:05)
[2018-11-01] MEDS: LOPRESSOR PO SCH (10:06)
[2018-11-01] MEDS: SOLU-MEDROL IV SCH ×2 (10:11→17:21)
[2018-11-01] MEDS ORDERED: LASIX 200 MG in NS 25 ML IV ONE (10:15)
[2018-11-01] MEDS: DILAUDID IV PRN ×2 (10:23→17:21)
--- NOTE | 2018-11-01 10:35 | PROGRESS NOTE ---
DATE: 11/01/2018 SUBJECTIVE: The patient is resting in bed and she is moaning, and in some form of discomfort. OBJECTIVE: Vital Signs: Temperature is 97.5 degrees, pulse 102, respirations 20, blood pressure is 93/75, oxygen saturation is 96%. HEENT: She is atraumatic and normocephalic. Cardiovascular System: S1 and S2. Respiratory System: Has evidence of good air entry bilaterally. Abdomen: Obese, nontender. No masses felt. Extremities: Edema in the lower extremities. Central Nervous System: The patient is awake but confused. Laboratory Data: Sodium is 136, potassium 4.1, chloride is 98, bicarb is 11, anion gap is 27, BUN is 50, creatinine is 3.3, glucose is 37. ASSESSMENT AND PLAN: 1. Pseudomonas and john pneumonia. Antibiotics per infectious disease. The patient is currently on cefepime, micafungin, as well as tobramycin. 2. Hemoptysis, resolved. 3. Left pleural effusion. Re-consult pulmonology. 4. Chronic kidney disease. Nephrology is following. 5. Atrial fibrillation. Management per cardiology team. 6. Generalized erythematous lesions involving mainly the extremities as well as the trunk with some exfoliative changes on the face. Suspect adverse drug reaction. We will recommend stopping all medications at this time if possible and we will start the patient on steroids. The patient will be transferred to the intensive care unit for closer monitoring. 7. Deep venous thrombosis prophylaxis. Sequential compression devices. 8. Gastrointestinal prophylaxis. Pepcid. cc: Onofre Alba MD
[2018-11-01] MEDS: LOVENOX SUBQ SCH (11:16)
--- NOTE | 2018-11-01 11:42 | NEPHROLOGY PROGRESS NOTE ---
DATE: 11/01/2018 TIME SEEN: 0705. SUBJECTIVE: Ms. Ruiz is resting quietly in bed. She is yelling aloud. She has just been cleaned up and turned in her bad, repositioned for comfort, and since that period of time, the nurses state that she has been yelling out loud. In the room, she remains nonverbal when asked if she is hurting anywhere, though she does make eye contact. OBJECTIVE: Vital Signs: Her most recent vital signs, temperature 98.5 degrees , blood pressure 105/56, heart rate is 110, respirations are 22. She is on 3 L nasal cannula. Last recorded saturation is 1000. She has had 150 mL out. Labs: Sodium is 136, potassium 4.1, chloride is 98, CO2 11, BUN is 50, creatinine 3.3, glucose 37, anion gap is 27, calcium 9.4, phosphorus 3.3, albumin is 3.9. White count 10.74, hemoglobin 8.2, hematocrit 24.3, with a platelet count of 204,000. The patient had a random tobramycin level of 0.39. Acetone level ordered this morning is negative. We still have urine electrolytes and a renal ultrasound currently pending. Physical Examination: General: This is a 73-year-old, elderly, black female who is currently resting in bed. She is in no acute distress, though she continues to moan aloud while we are in the room. Her skin is warm and dry. HEENT: Normocephalic, atraumatic. Conjunctivae are pale. She has AUR[place]A. Mucous membranes are dry. Neck: Supple. Trachea midline. No JVD. Cardiovascular: She is regular rate and rhythm. Lungs: Clear to auscultation bilaterally. Equal excursion. Poor inspiratory effort. Remains on O2. Abdomen: Soft, obese, nontender. Positive bowel sounds. Extremities: The patient continues with 3+ lower extremity edema today. No clubbing or cyanosis. Neurological: As above. ASSESSMENT AND PLAN: 1. Acute kidney injury on chronic kidney disease. Patient's BUN and creatinine have bumped today from 1.5 to 2 range, up into the 50 BUN and creatinine of 3.3. She has had decreased urinary output of only 150 mL in spite of having received Lasix 200 twice a day and albumin 50 x3 days. We will repeat this schedule one more time, giving 200 mg of Lasix this morning. We will give her 50 g of albumin this morning. We will check urine electrolytes. We will check a renal ultrasound. Again, acetone was negative. If this continues to have no improvement on her urine output and her renal status, we may have to discuss possible dialysis intervention tomorrow with family. 2. Electrolytes and acid-base balance. The patient remains acidotic with an increased anion gap of 27. No specific reason is noted from looking at her or her labs. 3. Hypoglycemia. Patient had a glucose of 37 this morning. She was treated with an ampule of D50. It did come up into the 60 range with the nurses monitoring per protocol. 4. Fluid volume status. She does remain in fluid volume overload. Again, we will give the Lasix 200 mg intravenous this morning with one dose of albumin 50 g. We will monitor urine electrolytes and monitor her response in the morning. I would like to thank you for allowing us to follow with this patient. Dictated by DAVID Marrero for Pankaj De MD Face to face encounter, data reviewed, discussed with Merline Choe. I agree with the above assessment and plan of care. cc: DAVID Marrero MD [facility]
[2018-11-01] MEDS: MYCAMINE 100 MG in NS 100 ML IV SCH (12:02)
--- NOTE | 2018-11-01 13:07 | INFECTIOUS DISEASE PROGRESS NO ---
DATE: 11/01/2018 ADDENDUM: The patient's rash has gotten worse. I started, on the 28 of October, micafungin, cefepime, and tobramycin by inhalation. It may be due to one of those medications. If it is, I would suspect cefepime is most likely the medication. Therefore, I am going to stop cefepime and substitute with Levaquin. cc: Zaid Mancilla MD
[2018-11-01] MEDS: HALDOL IV PRN (13:14)
[2018-11-01] MEDS: LEVAQUIN 500 MG/D5W 500 MG/100 ML IVPB IV SCH (13:14)
--- NOTE | 2018-11-01 15:56 | Diag Imaging Result Doc PS360 ---
US RENAL 2 (RETROPER) COMPLETE - 11/01/2018 INDICATION: oliguric TECHNIQUE: COMPARISON: None FINDINGS: The exam is nondiagnostic. The patient is too large to successfully imaged with ultrasound today. IMPRESSION: Nondiagnostic. Electronically signed by Reji Trejo 11/01/2018 3:54 PM
[2018-11-01 17:20] LABS: ALLEN TEST YES; BE -18.8 mmoll (-3.0-3.0); HCO3-(ACT) 9.6 mmoll (20.0-26.0); METHB 0.9 % (0.0-1.5); PCO2(98.6) 35 mmHg (35-45); SAMPLE BLOOD; SAO2 58.2 % (95.0-100.0); THB 8.8 g/dL (11.5-17.4)
[2018-11-01 17:29] LABS: MODALITY CANNULA
[2018-11-01 17:33] LABS: BLOOD TYPE VENOUS
[2018-11-01 17:34] LABS: pH(98.6) 7.07 (7.35-7.45)
[2018-11-01 17:35] LABS: PO2(98.6) 34 mmHg (60-100)
[2018-11-01 17:37] LABS: O2HB 56.7 % (95.0-99.0)
[2018-11-01 18:55] LABS: UR CREAT RANDOM 148.8 mg/dL (11-20); UR PROT RANDOM > 600.0 mg/dL; UR SODIUM 46 mmoll
[2018-11-01 20:51] LABS: ALLEN TEST YES; BE -16.7 mmoll (-3.0-3.0); BLOOD TYPE ARTERIAL; HCO3-(ACT) 11.9 mmoll (20.0-26.0); METHB 1.8 % (0.0-1.5); O2(CT) 12.7 mL/dL (15.0-23.0); O2HB 96.9 % (95.0-99.0); PCO2(98.6) 31 mmHg (35-45); PO2(98.6) 493 mmHg (60-100); SAMPLE BLOOD; SAO2 99.5 % (95.0-100.0); THB 8.3 g/dL (11.5-17.4)
[2018-11-01 20:54] LABS: MODALITY BI PAP; pH(98.6) 7.15 (7.35-7.45)
[2018-11-01] MEDS ORDERED: SODIUM BICARBONATE 8.4% IV PUSH ONE (21:04)
[2018-11-02] MEDS: FERROUS SULFATE PO SCH ×3 (00:16→22:36)
[2018-11-02] MEDS: PEPCID PO SCH ×4 (00:17→22:38)
[2018-11-02] MEDS: MUCINEX PO SCH ×4 (00:18→22:38)
[2018-11-02] MEDS: LIPITOR PO SCH ×3 (00:23→22:39)
[2018-11-02] MEDS: LOVENOX SUBQ SCH ×2 (00:23→22:37)
[2018-11-02] MEDS: MIRALAX PO SCH ×4 (00:25→22:38)
[2018-11-02] MEDS: LOPRESSOR PO SCH ×3 (00:26→22:39)
[2018-11-02] MEDS: GYNE-LOTRIMIN VAGINAL CREAM VAG SCH (00:38)
[2018-11-02] MEDS: DILAUDID IV PRN ×3 (00:45→21:15)
[2018-11-02] MEDS: SOLU-MEDROL IV SCH ×3 (01:30→17:49)
[2018-11-02] MEDS: ATROVENT NEB INH SCH ×4 (03:15→16:05)
[2018-11-02] MEDS: XOPENEX NEB INH SCH ×4 (03:16→21:26)
[2018-11-02 04:36] LABS: ALLEN TEST YES; BE -14.5 mmoll (-3.0-3.0); BLOOD TYPE ARTERIAL; HCO3-(ACT) 13.6 mmoll (20.0-26.0); METHB 1.1 % (0.0-1.5); O2(CT) 11.7 mL/dL (15.0-23.0); O2HB 96.3 % (95.0-99.0); PCO2(98.6) 29 mmHg (35-45); PO2(98.6) 96 mmHg (60-100); SAMPLE BLOOD; SAO2 99.1 % (95.0-100.0); THB 8.5 g/dL (11.5-17.4); pH(98.6) 7.22 (7.35-7.45)
[2018-11-02 04:37] LABS: MODALITY BI PAP
[2018-11-02 05:43] LABS: ALBUMIN 4.1 g/dL (3.5-5.0); CALCIUM 9.3 mg/dL (8.8-10.2); CREATININE 3.7 mg/dL (0.5-0.9); PHOSPHORUS 4.2 mg/dL (2.7-4.5); POTASSIUM 4.5 mmol/L (3.5-5.1)
[2018-11-02] MEDS: HALDOL IV PRN (07:18)
[2018-11-02] MEDS: ADVAIR 250/50 DISKUS INH SCH ×2 (07:32→20:03)
[2018-11-02] MEDS: TOBRAMYCIN MISC SCH ×2 (07:32→19:30)
--- NOTE | 2018-11-02 07:36 | Diag Imaging Result Doc PS360 ---
EXAM: CHEST-1 VIEW - 11/02/2018 HISTORY: SOB TECHNIQUE: Portable chest COMPARISON: 11/01/2018 FINDINGS: There is been some improvement in aeration at the upper left chest compared to prior. This may relate to decreased pleural fluid and associated compressive atelectasis on the left compared to prior. The left chest remains partially opacified. There is prominence of central vascular markings on the right. There is no pneumothorax identified. The left heart border is largely obscured. IMPRESSION: Some improvement in aeration at the upper left chest compared to prior. The left chest remains partially opacified. Electronically signed by Aldo Colby 11/02/2018 7:33 AM
--- NOTE | 2018-11-02 08:09 | PROGRESS NOTE ---
DATE: 11/02/2018 SUBJECTIVE: This patient is lying in bed. It looks like she is confused. She is not answering my questions or following commands. She opens her eyes with my voice. X-ray is still showing a lot of opacification of the left lung. The urine output is really low even though she has been getting Lasix. I do believe the plan is to talk to the family and probably start dialysis on this patient any time soon. OBJECTIVE: Vital Signs: Temperature 96.1 degrees, pulse 102, respiratory rate 10, blood pressure 108/78, and oxygen saturation 100% on the CPAP machine. HEENT: Head normocephalic. No trauma. PERRLA. Neck: Supple. I cannot see JVD because of her neck size. Central trachea. Chest: Decreased breath sounds globally mostly on the left side completely. Abdomen: Obese and nontender. Abdominal wall edema which is generalized. Extremities: 3+ extremity edema. No clubbing. No cyanosis. Cardiovascular: Irregular rate. Neurological: This patient is not following commands. She seems to be weak. She is moving all 4 extremities a little bit spontaneously. LABORATORY: Sodium 137, potassium 4.5, chloride 96, bicarbonate 13, BUN 56, creatinine 3.7, glucose 127, calcium 9.3, phosphorus 4.2, and albumin 4.1. ASSESSMENT AND PLAN: 1. Sepsis. Blood pressure is better, but it is really hard to get a blood pressure on this patient due to her current condition. She has right-sided mastectomy and left upper extremity DVT. We will continue with the same management. 2. Obesity. Anasarca. 3. Pseudomonal pneumonia and Haylee infection as well. Infectious Disease Department on board. Continue with antibiotics and micafungin. 4. Acute hypoxemic respiratory failure due to lung collapse due to mucous plug superimposed with an infectious process. She already had had a bronchoscopy done with aspiration of the mucus. Apparently, no malignancy. 5. CKD stage 4, probably 5. This patient is basically oliguric, probably this patient will need dialysis. She has been getting Lasix and albumin. 6. History of atrial fibrillation with history of bradycardia status post pacemaker placement. Continue with the same management. She is getting Lovenox twice a day therapeutic. 7. Left upper extremity DVT. Continue with anticoagulation. 8. Thrombocytopenia resolved. I will get a new CBC in the morning. 9. Normocytic anemia. We will monitor. Again, I will repeat a new CBC in the morning. 10. Generalized erythematous lesion involving mainly the extremities as well as the trunk with some exfoliative changes on her face suspect adverse drug reaction. She has been placed on steroids. She seems to be doing better. I will continue with the same management today and tomorrow. Hopefully, I will start decreasing the dose. CRITICAL CARE TIME: 40 minutes. cc: Evan Rosenthal MD
--- NOTE | 2018-11-02 08:34 | Diag Imaging Result Doc PS360 ---
EXAM: CHEST-PORTABLE INDICATION: NG placement TECHNIQUE: One view COMPARISON: 11/02/2016 FINDINGS: There is a newly placed NG tube. The tip projects well below the diaphragm and is assumed to be in the lumen of the stomach in the expected position. Visualization of the lung bases are very limited due to overpenetration because of focus on the NG tube. IMPRESSION: Interval placement of NG tube in expected position as described. Electronically signed by Daquan Sharp 11/02/2018 8:31 AM
[2018-11-02] MEDS: FOLIC ACID PO SCH (08:37)
--- NOTE | 2018-11-02 09:02 | NEPHROLOGY PROGRESS NOTE ---
DATE: 11/02/2018 TIME SEEN: 0615. SUBJECTIVE: Ms. Ruiz is currently in the ICU. She was transferred down here yesterday morning. The patient had a hypotensive episode with shallow respiration. She was placed on BiPAP at 100%. We had laboratories ordered yesterday morning. Due to all these findings, Dr. Dickerson and Primary Care had her transferred her to ICU for further monitoring and evaluation. They were unable to put her on pressor support, though at this time her blood pressure remains low, but stable at 108/78. She currently opens her eyes to verbal stimuli, otherwise, remains nonverbal. She is not answering any questions or following commands. OBJECTIVE: Vitals: Her most recent vital signs, temperature at this time 96.1 last checked. Blood pressure 108/78, heart rate 102, respirations are 16. She is now on 30% BiPAP, last recorded saturation 100%. General: This is a 73-year-old female. She appears in no acute distress. She remains on BiPAP support in the ICU. No pressor support on. Skin: Warm and dry, slightly erythematous under her normal pallor. She does have dryness and peeling to her face and upper extremities. HEENT: Unable to determine JVD. Cardiovascular: Regular rate and rhythm. Lungs: Diminished. Poor inspiratory effort. Remains on BiPAP. Abdomen: Obese, soft, nontender. Positive bowel sounds. Genitourinary: Flynn catheter is in place. Not inspected. Minimal urine out. Extremities: She does continue with 3+ lower extremity edema, also into the left upper arm, which is reddened and swollen secondary to a DVT. Diminished pulses. Neurological: She does move all extremities. Please refer to above. INPUT AND OUTPUT: She has had 245 in, she has had 65 mL out to Flynn catheter with a total of 165 in the last 48 hours. LABORATORY DATA: Sodium 137, potassium 4.5, chloride 96, CO2 13, BUN 56, creatinine 3.7, glucose 127. Her anion gap is 28, calcium of 9.3, phosphorus 4.2, albumin is 4.1. Previous hemoglobin 8.2. The patient has ABGs of pH 7.22, CO2 29, PO2 96, bicarb 13.6. She originally had a lactate of 13.6. This is down to 10.8. ASSESSMENT AND PLAN: 1. Acute kidney injury on chronic kidney disease. Patient's BUN and creatinine have continued to elevate. We have discussed possibly talking to family members in regards with need for starting hemodialysis. We will attempt this today. Patient had no response to an extra dose of 200 mg of Lasix and 50 g of albumin. 2. Electrolytes. These are acceptable. 3. Acid-base balance. Patient has a continuing worsening of her anion gap and her metabolic acidosis with respiratory acidosis, more than likely secondary to her sepsis and pseudomonal pneumonia with Haylee albicans infection. 4. Anemia. This is low, but stable. 5. Sepsis. Patient has a stable blood pressure at this time. No pressor supports in place. 6. Pseudomonal pneumonia. Dr. Mancilla has stopped the patient cefepime due to a possible reaction. Continues on Levaquin, micafungin, and tobramycin inhaler. I would like to thank you for allowing us to follow with this patient. Dictated by DAVID Marrero for Pankaj De MD Face to face encounter, data reviewed, discussed with Merline Choe on 11/02/18. I agree with the above assessment and plan of care. cc: DAVID Marrero MD [facility]
[2018-11-02] MEDS: MUCOMYST 20% INH SCH ×2 (09:46→21:26)
[2018-11-02] MEDS: MYCAMINE 100 MG in NS 100 ML IV SCH (10:49)
--- NOTE | 2018-11-02 10:52 | Diag Imaging Result Doc PS360 ---
CT ABD/PELVIS W/ORAL CONT ONLY - 11/02/2018 INDICATION: Lactic acidosis COMPARISON: 10/01/2018 FINDINGS: There is severe patient motion artifact. There is opacification at the left lung base with a small effusion and some atelectasis or infiltrate. There is cardiomegaly. There is a moderate pericardial effusion. There are pacemaker leads in the heart. There is severe diffuse body wall edema that has perhaps worsened slightly since prior. There is a nasogastric tube in the stomach. Oral contrast was administered. No bowel obstruction or inflammation. There is trace pelvic free fluid. Flynn catheter in the urinary bladder. Uterus and rectum are normal. There is severe degeneration throughout the spine and pelvis. IMPRESSION: Nonspecific findings. Worsening opacification of the left lung base. Slight worsening body wall edema. This exam was performed using automated exposure control, adjustment of mA or kV according to patient size, and/or use of iterative reconstruction technique Electronically signed by Reji Trejo 11/02/2018 10:50 AM
--- NOTE | 2018-11-02 13:01 | INFECTIOUS DISEASE PROGRESS NO ---
DATE: 11/02/2018 PRESENT ILLNESS: The patient has a Pseudomonas and Haylee pneumonia. She also has some shedding of the superficial layer of skin, possibly due to an adverse effect of one of the medications, namely cefepime. MEDICATIONS: This is day 5 of treatment with IV micafungin and tobramycin by inhalation and the first day of treatment with Levaquin. PHYSICAL EXAMINATION: Vital Signs: Temperature is 97.8 degrees, pulse 123, respirations 18, blood pressure 110/60. General: This patient is morbidly obese. She seems to be in a delirium. Head, eyes, ears, nose, and throat: No drainage is noted from the nose or ears. Neck: No stiffness. Lungs: Clear to auscultation. Cardiovascular: Heart rate is regular. Abdomen: Soft and nontender. Integument: There is some shedding of the superficial layers of skin. I did not see any erythema, however. DIAGNOSTIC STUDIES: The CBC for today shows a white count of 10,740, hemoglobin is 8.2, platelet count 204,000. Gases show a pH of 7.22, a PO2 of 96, and a pCO2 of 29. The creatinine is 3.4, GFR is 14. There is no new chest x-ray for today. ASSESSMENT AND PLAN: The patient has: 1. Pseudomonas and Haylee pneumonia. 2. She may be having an adverse reaction to one of the antibiotics. My plan is to continue now with tobramycin by inhalation, micafungin, and Levaquin. COMORBIDITIES: 1. The patient is morbidly obese. 2. She has diabetes mellitus. cc: Zaid Mancilla MD
[2018-11-02] MEDS: LEVAQUIN 500 MG/D5W 500 MG/100 ML IVPB IV SCH (13:42)
[2018-11-03] MEDS: SOLU-MEDROL IV SCH ×2 (01:21→13:59)
[2018-11-03 03:01] LABS: BASO# 0.03 X1000 (0.0-0.2); BASO% 0.2 % (0.0-0.8); EOS# 0.01 X1000 (0.0-0.7); EOS% 0.1 % (0.0-10.0); HEMATOCRIT 24.2 % (37.0-47.0); HEMOGLOBIN 8.2 g/dL (12.0-16.0); IMM GRAN% 1.8 % (0.0-0.5); LYMPH# 1.75 X1000 (1.2-3.4); LYMPH% 10.4 % (20.5-51.1); MCH 29.7 PG (27-31); MCHC 33.9 g/dL (33-37); MCV 87.7 FL (81-99); MONO# 1.63 X1000 (0.11-0.59); MONO% 9.7 % (1.7-9.3); MPV 11.1 FL (7.4-10.4); NEUT# 13.14 X1000 (1.4-6.5); NEUT% 77.8 % (42.2-75.2); PLT 107 X1000 (130-400); RBC 2.76 XMIL (4.2-5.4); RDW 16.2 % (11.5-14.5); WBC 16.86 X1000 (4.8-10.8)
[2018-11-03 03:22] LABS: LYMPHS 6 % (21-51); MONO 4 % (1-9); NRBC 3 % (0-0); SEGS 88 % (42-75)
[2018-11-03 03:38] LABS: ALBUMIN 4.1 g/dL (3.5-5.0); CALCIUM 9.3 mg/dL (8.8-10.2); CREATININE 4.1 mg/dL (0.5-0.9); PHOSPHORUS 5.3 mg/dL (2.7-4.5)
[2018-11-03] MEDS: XOPENEX NEB INH SCH ×4 (03:48→21:38)
[2018-11-03 05:23] LABS: ALLEN TEST YES; BE -13.9 mmoll (-3.0-3.0); BLOOD TYPE ARTERIAL; HCO3-(ACT) 14.1 mmoll (20.0-26.0); METHB 1.3 % (0.0-1.5); O2(CT) 11.6 mL/dL (15.0-23.0); O2HB 95.2 % (95.0-99.0); PCO2(98.6) 36 mmHg (35-45); PO2(98.6) 84 mmHg (60-100); SAMPLE BLOOD; SAO2 98.2 % (95.0-100.0); THB 8.6 g/dL (11.5-17.4)
[2018-11-03 05:25] LABS: MODALITY BI PAP
[2018-11-03 05:26] LABS: pH(98.6) 7.18 (7.35-7.45)
[2018-11-03] MEDS: DILAUDID IV PRN ×2 (06:33→15:06)
[2018-11-03] MEDS: TOBRAMYCIN MISC SCH ×2 (07:13→20:13)
--- NOTE | 2018-11-03 07:15 | Diag Imaging Result Doc PS360 ---
EXAM: CHEST-1 VIEW 11/03/2018 HISTORY: SOB TECHNIQUE: AP portable at 0523 COMMENT: There is enlargement of the cardiomediastinal silhouette. There is interstitial opacity which appears to be slightly worse over the right base than on 11/02/2018. The left heart border is clearer however. IMPRESSION: Slightly worsened pulmonary edema. Cardiomegaly. Electronically signed by Carlo Shelton 11/03/2018 7:12 AM
[2018-11-03] MEDS ORDERED: SODIUM BICARBONATE 8.4% IV ONE (08:09)
--- NOTE | 2018-11-03 08:19 | NEPHROLOGY PROGRESS NOTE ---
DATE: 11/03/2018 TIME SEEN: 0615. SUBJECTIVE: Ms. Ruiz is resting quietly in bed. She is currently on a Ventimask for O2 support. She does not open her eyes to verbal stimuli, but does open her eyes to tactile stimuli. She remains nonverbal. OBJECTIVE: Vitals: Her most recent vital signs, her last temperature recorded 94.6, her blood pressure 105/87, heart rate 105, respirations are 18, she is on 40% Ventimask, last recorded saturation is 100%. General: This is a 73-year-old female. She is resting quietly in bed. She appears chronically ill. She is in no acute distress. Skin: Warm and dry. HEENT: Normocephalic, atraumatic. Unable to determine JVD. She has resistance to opening her eyes, though they appear equal. Neck: Supple, trachea midline. Cardiovascular: She is irregular rate today. She looks like she is alternating flutter with sinus rhythm, more flutter when she becomes more tachycardic. No appreciable murmur or gallop. Lungs: Diminished breath sounds anterior. She is currently on 40% Ventimask. Again, poor inspiratory effort. Abdomen: Obese, soft, nontender. Positive bowel sounds. Genitourinary: Flynn catheter is in place. She has had no urine out documented, except for 5 mL. Extremities: Patient continues with trace pretibial edema. She does have edema around the hips. She has enlarged left upper arm that is reddened and swollen secondary to a DVT. Diminished pulses to that wrist. Neurological: As mentioned above. INPUT AND OUTPUT: She has had 500 mL in, she has had 700 mL out of emesis with 5 mL to her Flynn catheter. LABORATORIES: Her sodium is 137, her potassium 5, chloride 98, CO2 15, BUN 60, creatinine 4.1, glucose 124. Her anion gap is 15. Her calcium is 9.3, phosphorus 5.3, albumin is 4.1. White count 16.86, hemoglobin 8.2, hematocrit 24.2 with a platelet count of 107,000. Arterial blood gases: PH 7.18, CO2 36, PO2 84, bicarb 14.1. Patient has a lactate which is down to 8.6 on 30% BiPAP at this time. ASSESSMENT AND PLAN: 1. Acute kidney injury. The patient's BUN and creatinine have continued to elevate. She has had decreased urinary output. We were unable to talk to the family yesterday. We will approach the family today in regards with starting hemodialysis for bridging during her hospitalization. 2. Electrolytes and acid-base balance. This remains fairly stable. The patient's anion gap remains slightly elevated, but slightly improved. She continues in metabolic acidosis with respiratory acidosis. 3. Anemia. This remains low, but stable. 4. Sepsis. Patient blood pressure is holding stable. She does not have any pressor supports on at this time. 5. Pseudomonal pneumonia with Haylee infection. This is followed by Dr. Zaid Mancilla with Infectious Disease. She remains on renal-dosed antibiotics. Again, these have been changed to Levaquin, micafungin and tobramycin inhaler. I would like to thank you for allowing us to follow with this patient. Dictated by DAVID Marrero for Pankaj De MD Face to face encounter, data reviewed, discussed with Merline Choe on 11/03/18. I agree with the above assessment and plan of care. cc: DAVID Marrero MD [facility]
[2018-11-03] MEDS: FOLIC ACID PO SCH (08:21)
[2018-11-03] MEDS: LOPRESSOR PO SCH ×2 (08:21→20:05)
[2018-11-03] MEDS: MUCINEX PO SCH ×2 (08:22→20:04)
[2018-11-03] MEDS: PEPCID PO SCH ×2 (08:22→20:04)
[2018-11-03] MEDS: MIRALAX PO SCH ×2 (08:22→20:04)
[2018-11-03] MEDS: ADVAIR 250/50 DISKUS INH SCH ×2 (08:37→20:13)
--- NOTE | 2018-11-03 08:43 | PROGRESS NOTE ---
DATE: 11/03/2018 SUBJECTIVE: This patient is still lying in bed, no acute events overnight, she is still having extremely low urine output, we do have a positive balance of 19 L. The case has been discussed with the Nephrology Department. Likely this patient will be placed on dialysis in the near future. OBJECTIVE: Vital Signs: Temperature 94.6 degrees, pulse 99 respiratory rate 13, blood pressure 88/64, oxygen saturation 100% on a Venturi mask. HEENT: Head normocephalic. No trauma. PERRLA. Neck: Supple. I cannot see JVD because of her neck size. Central trachea. Chest: Decreased breath sounds globally with coarse breath sounds, no breath sound on the left lung. Abdomen: Obese, nontender. Abdominal wall edema which is generalized. Extremities: 2+ extremity edema all the way up to the level of the thigh, there is 3+ upper extremity swelling as well. No cyanosis, no clubbing. Neurologic: The patient somnolent. She opens her eyes with some stimulation. She is not following commands or answering my questions. LABORATORY DATA: WBC 16.8, hemoglobin 8.2, hematocrit 34.2, platelets 107,000. Sodium 137, potassium 5, chloride 98, bicarbonate 15, BUN 60, creatinine 4.1, glucose 124, calcium 9.3. Phosphorus 5.3, albumin 4.1. ASSESSMENT AND PLAN: 1. Sepsis with metabolic acidosis, which is multifactorial. This patient is not making urine, she does have Pseudomonas pneumonia as well as Haylee infection, Infectious Disease Department on board. Will continue to monitor. 2. Acute hypoxemic respiratory failure due to lung collapse due to mucus plug superimposed with Haylee and Pseudomonas pneumonia infection, Infectious Disease Department on board as well as Pulmonary Department. She already had a bronchoscopy done, I think the last one was on 10/28/2018 with suction of the mucus. Apparently no malignancy. Oxygen has been stable. 3. Anasarca. Aware. 4. Pseudomonal pneumonia and Haylee infection as well, Infectious Disease Department on board. Continue with antibiotics and micafungin. 5. Chronic kidney disease stage 4, likely 5. This patient is basically oliguric. She needs dialysis. Case has been discussed with the Nephrology Department, hopefully she will be dialyzed in the near future. 6. History of atrial fibrillation with history of bradycardia status post pacemaker placement. 7. Left upper extremity deep venous thrombosis. Continue with anticoagulation. 8. Thrombocytopenia. Platelet count started to drop again, today is 107,000. We will monitor. 9. Hypothermia. We will continue with warm blankets and antibiotics. 10. Normocytic anemia. Will monitor. Again, we will continue to monitor the CBC in the morning. 11. Generalized erythematous lesion involving mainly the extremities as well as trunk with some exfoliative changes on her face, suspected adverse drug reaction, I have decreased the dose of the steroids. She seems to be better. Hopefully tomorrow we will stop it completely. This patient is remarkably sick. I will give her a dose of bicarbonate now but I believe she needs to be dialyzed. She does have multiple problems, her prognosis is guarded. cc: Evan Rosenthal MD
[2018-11-03] MEDS: MYCAMINE 100 MG in NS 100 ML IV SCH (08:45)
[2018-11-03] MEDS: MUCOMYST 20% INH SCH ×2 (09:56→21:38)
[2018-11-03] MEDS: LEVOPHED 8 MG in D5 1/2 NS 250 ML IV SCH ×2 (10:45→17:23)
--- NOTE | 2018-11-03 13:58 | INFECTIOUS DISEASE PROGRESS NO ---
DATE: 11/03/2018 PRESENT ILLNESS: The patient I think has a combination of a Pseudomonas and Haylee pneumonia, along with pulmonary venous congestion. It seemed for while that the patient was having an adverse reaction to one of the medications with her skin peeling. The peeling appears to have stopped; therefore, the medicine that was causing it has been discontinued. MEDICATIONS: This is the 6th day of treatment for her Pseudomonas pneumonia. The patient is on micafungin, Levaquin, and tobramycin by inhalation. PHYSICAL EXAMINATION: Vital Signs: Temperature is 98 degrees, pulse 119, respirations 16, blood pressure 76/41. General: This is a morbidly obese elderly female. She is in no acute distress. Head, eyes, ears, nose, and throat: There is no drainage from the nose or ears. I cannot be sure whether the patient can hear me or understand what I am saying or not. Neck: No meningismus. Lungs: Clear to auscultation. Cardiovascular: Heart rate is regular. Abdomen: Soft and nontender. Extremities: The patient has bilateral leg edema. Neurologic: The patient did not follow any requests I made to move her extremities. DIAGNOSTIC STUDIES: Chest x-ray shows worsening of the pulmonary edema. CBC shows a white count of 16,860, hemoglobin 8.2, and platelet count of 107,000. The blood gases show a pH of 7.18, a PO2 of 84, and a pCO2 of 36. Creatinine is 4.1, GFR is 13. ASSESSMENT AND PLAN: 1. The patient has a Pseudomonas and Haylee pneumonia. 2. I think there is also an element of pulmonary venous congestion as well. 3. She had may have been having an adverse reaction to one of the antibiotics, but the antibiotic has been discontinued, and the skin peeling has stopped also. My plan now is to continue the current treatment with Levaquin, micafungin, and tobramycin by inhalation. COMORBIDITIES: 1. She is a diabetic. 2. She is morbidly obese. cc: Zaid Mancilla MD
[2018-11-03] MEDS: LEVAQUIN 500 MG/D5W 500 MG/100 ML IVPB IV SCH (14:00)
[2018-11-03 14:52] LABS: ALLEN TEST NO; BE -13.6 mmoll (-3.0-3.0); BLOOD TYPE ARTERIAL; HCO3-(ACT) 14.3 mmoll (20.0-26.0); METHB 1.1 % (0.0-1.5); O2(CT) 12.2 mL/dL (15.0-23.0); O2HB 96.8 % (95.0-99.0); PCO2(98.6) 37 mmHg (35-45); PO2(98.6) 121 mmHg (60-100); SAMPLE BLOOD; SAO2 99.7 % (95.0-100.0); THB 8.8 g/dL (11.5-17.4)
[2018-11-03 14:53] LABS: pH(98.6) 7.18 (7.35-7.45)
[2018-11-03 14:54] LABS: MODALITY VENTIMASK
--- NOTE | 2018-11-03 17:11 | Diag Imaging Result Doc PS360 ---
EXAM: CHEST-PORTABLE HISTORY: cvl placement TECHNIQUE: Portable chest single view COMPARISON: 5:23 AM FINDINGS: Interval placement of a right jugular line. The tip overlies the right atrium. No thorax. No other interval change. IMPRESSION: No postprocedural pneumothorax. Electronically signed by Dimitrios Correia 11/03/2018 5:09 PM
--- NOTE | 2018-11-03 17:46 | OPERATIVE NOTE ---
PROCEDURE DATE: 11/03/2018 PREOPERATIVE DIAGNOSES: 1. Acute on chronic kidney injury. 2. Pneumonia. POSTOPERATIVE DIAGNOSES: 1. Acute on chronic kidney injury. 2. Pneumonia. PROCEDURE: Insertion of dialysis vascular catheter. SURGEON: Heber Henry MD. ESTIMATED BLOOD LOSS: Scant. COMPLICATIONS: None apparent. TECHNIQUE: She was placed Trendelenburg in her ICU bed. The left subclavian area was prepped and draped in usual sterile fashion. Then 1% lidocaine was used to anesthetize the skin and subcutaneous tissues. The left subclavian vein was then accessed on the third attempt, drawing back dark nonpulsatile blood. The wire passed through the needle. The needle was removed. The track was dilated. A dialysis catheter was passed over the wire via the Seldinger technique. The wire was removed. Both ports jeovany back blood easily and were flushed with saline easily. It was anchored to the skin with nylon suture. Sterile dressing was applied. The caps were applied to the catheter. A chest x-ray was ordered. cc: Heber Henry MD
--- NOTE | 2018-11-03 18:08 | Diag Imaging Result Doc PS360 ---
EXAM: CT HEAD W/O CONTRAST HISTORY: unequal pupils TECHNIQUE: CT head without contrast COMPARISON: None. FINDINGS: No parenchymal hemorrhage. No epidural or subdural hematoma. No subarachnoid hemorrhage. No mass identified on this noncontrasted exam. No hydrocephalus. No sinus opacification. IMPRESSION: No hemorrhage. Negative brain CT without contrast. This exam was performed using automated exposure control, adjustment of mA or kV according to patient size, and/or use of iterative reconstruction technique. Electronically signed by Dimitrios Correia 11/03/2018 6:05 PM
[2018-11-03] MEDS: FERROUS SULFATE PO SCH (20:04)
[2018-11-03] MEDS: LIPITOR PO SCH (20:04)
[2018-11-03] MEDS ORDERED: NEO-SYNEPHRINE 50 MG in NS 250 ML IV SCH (21:00)
[2018-11-03] MEDS: LOVENOX SUBQ SCH (22:24)
[2018-11-03] MEDS: NEO-SYNEPHRINE 100 MG in NS 250 ML IV SCH (22:25)
[2018-11-03] MEDS: LEVOPHED 16 MG in D5 1/2 NS 250 ML IV SCH (23:33)
[2018-11-04] MEDS ORDERED: PROTONIX IV SCH (01:15)
[2018-11-04] MEDS ORDERED: SODIUM CHLORIDE 0.9% INJ SCH (01:15)
[2018-11-04] MEDS: SOLU-MEDROL IV SCH (01:53)
--- NOTE | 2018-11-04 02:02 | GASTROENTEROLOGY CONSULTATION ---
DATE: 11/03/2018 REASON FOR CONSULTATION: Coffee-grounds emesis. HISTORY OF PRESENT ILLNESS: Ms. Darling Ruiz is a 73-year-old woman with a past medical history significant for atrial fibrillation, hypertension, iron deficiency anemia, COPD , diabetes, morbid obesity, and CKD stage 3, who was admitted on 10/01/2018 with a small-bowel obstruction complicated by pneumonia, hypoxic respiratory failure, acute kidney injury and pancytopenia, who presents to the GI service with reported coffee-grounds emesis that started yesterday. History obtained from RN and chart. Per RN, the patient developed nausea and vomiting with brownish liquid after putting in an NG tube. 700 mL of brown liquid was suctioned from her stomach. Her hemoglobin has remained stable at around 8.2. Her last transfusion was on 03/19/2019. She has a history of chronic iron deficiency/anemia of chronic disease dating back to at least 2015. At that time she had an EGD done in May of [address] Tejada that was normal. I am unable to obtain a review of systems at this time given AMS. She has been on Lovenox for DVT prophylaxis and solumedrol. No aspirin. No NSAIDs. She currently is not on a PPI. PAST MEDICAL HISTORY: CKD stage 3, diabetes, atrial fibrillation with bradycardia, status post pacemaker, hypertension, hyperlipidemia, iron deficiency anemia, anemia of chronic disease, history of breast cancer, morbid obesity, COPD. PAST SURGICAL HISTORY: Right mastectomy, section, pacemaker placement. HOME MEDICATIONS: Atorvastatin, Coreg, famotidine, fluticasone, Lasix, hydrocodone, hydroxyzine, irbesartan, Xarelto. ALLERGIES: Macrobid. SOCIAL HISTORY: Prior smoker. No alcohol or drug use. FAMILY HISTORY: Positive for diabetes, hypertension, coronary artery disease, stroke, cancer. No GI malignancies per chart. REVIEW OF SYSTEMS: Unable to obtain secondary to lethargy and altered mental status. PHYSICAL EXAMINATION: Vital Signs: Temperature 98 degrees, pulse 113, respiratory rate 26, blood pressure 95/53, O2 saturation 100% on 40% venturi mask. General: The patient is ill-appearing, no acute distress, altered, minimally arousable. HEENT: Sclerae are anicteric. Moist mucous membranes. NG tube in place with brown liquid in reservoir and tubing. No appreciable coffee- grounds or overt blood. Neck: Supple. Cardiac: Tachycardic, regular, no murmurs. Lungs: Decreased breath sounds bilaterally at the bases. Abdomen: Obese, soft, nontender. Normoactive bowel sounds. No rebound or guarding. Extremities: With 2+ lower extremity edema. No clubbing or cyanosis. Neurologic: Appears somnolent, opens her eyes to stimulation. Not answering any questions. LABORATORY DATA: White count of 10.7, hemoglobin 8.2, platelets of 204,000. Sodium 137, potassium 5.0, chloride of 98, bicarbonate 15, BUN 60, creatinine 4.1, glucose 124, folate 4.9, B12 of 1847. No recent iron studies. Bronchial washings revealed Pseudomonas and Haylee albicans. IMAGING: CT of the abdomen and pelvis on 11/02/2018 shows no significant findings, worsening opacification of the left lung base, slightly worsening body wall edema. ASSESSMENT AND PLAN: Ms. Darling Ruiz is a 73-year-old woman initially admitted with nausea and vomiting in the setting of small-bowel obstruction complicated by hypoxic respiratory failure, acute kidney injury on chronic kidney disease, pneumonia and pancytopenia, who developed recurrent nausea and vomiting requiring nasogastric tube placement and suctioning of brown liquid concerning for potential UGI bleeding. Her hemoglobin has remained stable, and the appearance of the fluid appears almost feculent. CT A/P on 11/02 was negative for persistent bowel obstruction. There also does not appear to be gross overt bleeding on examination. I would recommend giving her a gastrointestinal prophylaxis with intravenous pantoprazole once daily and continue supportive care at this time. She can resume deep venous thrombosis prophylaxis. Continue to trend hemoglobin and hematocrit daily and transfuse as needed to maintain a hemoglobin between 7 and 8. No indications for an endoscopic evaluation at this time. We will defer management of her multiple medical issues to her primary team and consulting physicians. Please call with any questions or concerns. We will sign off. [facility]
[2018-11-04] MEDS: DILAUDID IV PRN ×3 (02:56→12:09)
[2018-11-04] MEDS ORDERED: PITRESSIN 40 UNIT in NS 100 ML IV SCH (03:45)
[2018-11-04 05:09] LABS: ALLEN TEST YES; BE -15.4 mmoll (-3.0-3.0); BLOOD TYPE ARTERIAL; HCO3-(ACT) 12.9 mmoll (20.0-26.0); METHB 0.9 % (0.0-1.5); O2(CT) 13.2 mL/dL (15.0-23.0); O2HB 97.5 % (95.0-99.0); PCO2(98.6) 40 mmHg (35-45); PO2(98.6) 136 mmHg (60-100); SAMPLE BLOOD; THB 9.4 g/dL (11.5-17.4)
[2018-11-04 06:09] LABS: CALCIUM 8.6 mg/dL (8.8-10.2); CREATININE 4.7 mg/dL (0.5-0.9); PHOSPHORUS 5.7 mg/dL (2.7-4.5)
[2018-11-04 06:11] LABS: POTASSIUM 5.5 mmol/L (3.5-5.1)
[2018-11-04] MEDS: XOPENEX NEB INH SCH ×2 (06:42→10:20)
[2018-11-04 06:50] LABS: pH(98.6) 7.12 (7.35-7.45)
[2018-11-04 06:51] LABS: MODALITY VENTIMASK
[2018-11-04] MEDS ORDERED: SODIUM BICARBONATE 8.4% IV PUSH ONE ×2 (06:56)
[2018-11-04] MEDS: NEO-SYNEPHRINE 100 MG in NS 250 ML IV SCH (07:13)
--- NOTE | 2018-11-04 07:29 | Diag Imaging Result Doc PS360 ---
EXAM: CHEST-1 VIEW HISTORY: SOB TECHNIQUE: Portable chest single view COMPARISON: 11/03/2018 FINDINGS: There is now complete opacification of the left hemithorax. Pulmonary edema remains in the right lung. Poor inspiratory effort. No change in the right jugular line or the nasogastric tube. There is a left-sided pacemaker. IMPRESSION: Interval worsening with opacification of the left hemithorax on the current exam. Electronically signed by Dimitrios Correia 11/04/2018 7:26 AM
--- NOTE | 2018-11-04 08:25 | INFECTIOUS DISEASE PROGRESS NO ---
DATE: 11/04/2018 PRESENT ILLNESS: The patient has an opacified left chest, which is most likely secondary to mucus plugging. I think the patient does have pneumonia caused by Pseudomonas and Haylee. The patient also has pulmonary venous congestion. The patient was having some scaling of her skin. It was thought to be due to an adverse reaction to a medication. The illness seemed to clear with stopping cefepime; therefore, most likely the scaling of the skin was due to taking cefepime, which has been discontinued. MEDICATIONS: This is the 7th day of treatment with micafungin, Levaquin, and tobramycin by inhalation. PHYSICAL EXAMINATION: Vital Signs: Temperature is 98 degrees, pulse 127, respirations are 17, blood pressure is 107/92. General: The patient is morbidly obese and she has agonal respirations. Head/eyes/ears/nose/throat: There is no drainage from the nose or ears. She does not respond to verbal stimuli. Neck: No meningismus. The patient has a right internal jugular vein catheter. The site is not swollen or draining. Thorax: Patient has an increased AP diameter. She has a Vas-Cath for dialysis present on the left side of the chest. That site also is not swollen or draining. Lungs: There were diminished breath sounds on the left side. The right side had rhonchi. Cardiovascular: Heart rate is regular. Abdomen: Soft and nontender. Neurologic: The patient is obtunded. She did not respond to verbal stimuli. There is no tremor. Extremities: The patient's left arm is swollen, most likely due to the venous thrombosis in the arm. Integument: There is no further scaling of the skin. LABORATORY DATA: There is no CBC for today. The blood gases show a pH of 7.12, a PO2 of 136, a pCO2 of 40. Creatinine is 4.7. GFR is 11. ASSESSMENT AND PLAN: Patient has Pseudomonas and Haylee pneumonia. There is opacification of the left side of the chest and there is pulmonary venous congestion present. The patient does not have any more peeling so the medication that caused it has been discontinued. COMORBIDITIES: She is diabetic and morbidly obese. cc: Zaid Mancilla MD
[2018-11-04] MEDS: FOLIC ACID PO SCH (08:32)
[2018-11-04] MEDS: LOPRESSOR PO SCH (08:32)
[2018-11-04] MEDS: MIRALAX PO SCH (08:32)
[2018-11-04] MEDS: MUCINEX PO SCH (08:33)
[2018-11-04] MEDS: LEVOPHED 16 MG in D5 1/2 NS 250 ML IV SCH (08:36)
[2018-11-04] MEDS: PEPCID PO SCH (08:42)
[2018-11-04] MEDS ORDERED: SOLU-MEDROL IV SCH (09:00)
[2018-11-04] MEDS: MYCAMINE 100 MG in NS 100 ML IV SCH (09:29)
--- NOTE | 2018-11-04 09:40 | PROGRESS NOTE ---
DATE: 11/04/2018 SUBJECTIVE: This patient is still lying in bed. She has been placed on 3 vasopressors because of her low blood pressure. She is oliguric. She is acidotic, hyperkalemic. Lactate level is 8.8. X-ray showed interval worsening with opacification of the left hemithorax. The patient is tachycardic. Oxygen saturation is stable with a Ventimask. OBJECTIVE: HEENT: Head normocephalic. No trauma. PERRLA. Neck: Supple. I cannot see JVD because of her neck size. Central trachea. Chest: Decreased breath sounds globally. No breath sounds on the left side. The patient seems to be gasping for air. Cardiovascular: Regular rate and rhythm. Tachycardic. Abdomen: Soft, obese, protuberant. Abdominal wall edema. Extremities: 2+ lower extremity edema distally all the way up to the thigh. 2+ upper extremity swelling as well. She is not cyanotic or no clubbing. Neurologic: This patient is lethargic. She opens her eyes a little bit with my voice stimulation but not following commands or answering any questions. LABORATORY DATA: Pending CBC. The pH is 7.12, pCO2 40, pO2 136, bicarbonate 12.9. Sodium 137, potassium 5.5, chloride 98, bicarbonate 14, BUN 63, creatinine 4.7, glucose 133, calcium 8.6, phosphorus 5.7, albumin 4. ASSESSMENT AND PLAN: 1. Sepsis with severe metabolic acidosis, multifactorial. She is on pressors, likely septic shock. She is oliguric. She has Pseudomonas pneumonia as well as Haylee infection. Infectious Disease Department as well as Nephrology Department on board. 2. Acute hypoxemic respiratory failure due to lung collapse due to mucus plug superimposed with Haylee and Pseudomonas pneumonia infection, fluid overload/pulmonary edema. Pulmonary Department on board. The family had decided to place this patient Do Not Resuscitate level 1, no intubation. This patient has been having some bronchoscopies done, I think 3 times. Pathology report from that bronchoscopy showed fragments of reactive bronchial mucosa with patchy chronic inflammation of global cell metaplasia. 3. Anasarca, aware. 4. Acute kidney injury with no recovery. This patient is oliguric. A dialysis catheter has been placed but given her current presentation probably she will not get dialysis. 5. Chronic kidney disease stage 4 with acute kidney injury with no recovery as above. 6. History of atrial fibrillation with history of bradycardia status post pacemaker placement. 7. Left upper extremity deep venous thrombosis. For now, we will continue with same management. 8. Thrombocytopenia, pending lab work today. 9. Hypothermia. Temperature is slightly better, still a little bit low at 97.4. 10. Normocytic anemia. Will monitor. Pending CBC. 11. Generalized erythematous lesions involving mainly the extremities as well as trunk with some exfoliative changes on her face. Continue with the same management. I had a conversation with the family, her sister, [id number], granddaughter and one daughter. The daughter states that they do not want to be aggressive and go ahead and put this patient DNR level 1, no CPR, no mechanical ventilation. Also as per the nurse, they just talked to her and told her that they want to probably start comfort measures only today at noon and probably withdraw care. I will meet with them again at noon, and I will do everything they want to keep the patient comfortable. This patient again is remarkably sick. Prognosis is extremely poor. I believe the possibility of survival is minimal. CRITICAL CARE TIME: 1 hour. cc: Evan Rosenthal MD
[2018-11-04] MEDS: TOBRAMYCIN MISC SCH (10:20)
[2018-11-04] MEDS: MUCOMYST 20% INH SCH (10:20)
[2018-11-04] MEDS: ADVAIR 250/50 DISKUS INH SCH (10:20)
--- NOTE | 2018-11-04 11:03 | GASTROENTEROLOGY PROGRESS NOTE ---
DATE: 11/04/2018 SUBJECTIVE: She is resting in bed. The patient is not doing well. She is on 3 vasopressors. She is oliguric. She is acidotic. She is tachypneic and tachycardic. She is on a Ventimask. I spoke to the patient's family at bedside. OBJECTIVE: Vital signs: Temperature of 98.9 degrees, pulse 110, respiratory rate of 8, blood pressure of 44/27. She is currently on Ventimask with 40% FiO2. She has gone from tachypneic to dropping respiratory rate. HEENT: Positive pallor. Positive face mask. Abdomen: Obese, nondistended. Extremities: No cyanosis, clubbing. Neurologic: She is obtunded. LABORATORY DATA: Her ABG is showing pH of 7.12, pCO2 40, pO2 of 136. Lactate of 8.8. This is on Ventimask and 40% FiO2. Sodium 137, potassium 5.5, chloride 98, bicarb 49, anion gap of 25, BUN of 63, creatinine of 4.7, glucose of 133. Calcium is 8.6, phosphorus 4.7, albumin of 4. IMPRESSION AND PLAN: 1. Sepsis with severe metabolic acidosis. She is very critical at this moment. Her chance of survival is very low. Discussed that with the patient and family at bedside. 2. Coffee-ground emesis. She will continue on proton pump inhibitors for now. 3. Anemia. Continue to watch for now. Transfuse as needed. 4. Acute hypoxic respiratory failure. She is being managed by primary team. DISPOSITION: The patient is DNR 1. She is actively dying. Prognosis is extremely poor. I offered my support to the patient's family at bedside. Discussed with Dr Turcios. cc: MD Evan Gabriel MD [facility]
[2018-11-04] MEDS ORDERED: ATIVAN IV PRN (12:15)
[2018-11-04] MEDS ORDERED: MORPHINE IV PRN (12:15)
[2018-11-04 12:37] VITALS: BP 57/34
[2018-11-04 13:23] LABS: HEPATITIS PROFILE ACUTE SEE COMMENTS
[2018-11-04] MEDS ORDERED: TYLENOL PR PRN (13:24)
[2018-11-04] MEDS ORDERED: ATROPINE 1 % OPHTH SOLN SL PRN (13:28)
--- NOTE | 2018-11-04 14:21 | NEPHROLOGY PROGRESS NOTE ---
DATE: 11/04/2018 SUBJECTIVE: Ms. Ruiz is resting quietly in bed. She remains on Ventimask support 40%. She is lethargic. She does not open her eyes to verbal or tactile stimuli. OBJECTIVE: Vital signs: Her most recent vital signs temperature is 97.4 degrees, blood pressure 107/92 heart rate 127, respirations 17. She is on 40% Ventimask, last recorded saturation is 100%. She has had 1306 in 150 mL out to Flynn catheter. LABORATORY DATA: Sodium 137, potassium 5.5, chloride 98, CO2 14, BUN 63, creatinine 4.7, glucose 133. Anion gap is 25 calcium 8.6 phosphorus 5.7, albumin is 4. Previous hemoglobin of 8.2. ABGs pH 7.12, CO2 40, pO2 136, bicarb 12.9 on 40% Ventimask. PHYSICAL EXAMINATION: General: This is a 73-year-old female she is resting quietly in bed. Skin: Warm and dry. HEENT: Normocephalic, atraumatic. Conjunctivae pale. She has AURORA. Mucous membranes are dry. Neck: Supple, trachea midline. No evidence of JVD. Cardiovascular: She has an irregularly irregular rate and rhythm. She is tachycardic on the monitor, possibly in an out of atrial fibrillation with occasional ventricular tachycardia at 3 to 8 beats. Lungs: Diminished breath sounds bilateral. Remains on 40% Ventimask. Poor inspiratory effort. Abdomen: Large, round, soft, nontender. Positive bowel sounds. Genitourinary: Not inspected. Patient has minimal urine out to Flynn catheter. Extremities: Patient has edema from the dependent hip area. Trace pretibial edema. Left upper arm remains red and swollen secondary to her DVT. Warm to touch. Diminished pulses at the wrist. Neurological: As mentioned above. Integumentary: Patient does have peeling noted to her skin, both face, extremities, torso on the anterior aspect. ASSESSMENT AND PLAN: Acute kidney injury. Patient continues with minimal urinary output. Her BUN and creatinine have slowly continued to climb over the last several days. Doctor is at bedside and has discussed current plan of care with the primary care. The patient is now a DNR level 1. Family has decided to withdraw all care once family members arrive. They have requested comfort care only. We will sign off at this time, remain available if requested to come back for assistance with care. I would like to thank you for allowing us to follow with this patient. I spoke directly with the family. I expressed to them that though she has severe acute kidney injury, she will not tolerate dialysis. Her primary problem is sepsis related to her pneumonia and she has not responded therapy thus far. As such I DO NOT BELIEVE THAT Dialysis is appropriate. They understand. Dictated by DAVID Marrero for Pankaj De MD Face to face encounter, data reviewed, discussed with Merline Choe on 11/04/18. I agree with the above assessment and plan of care. cc: DAVID Marrero MD [facility]
--- NOTE | 2018-11-05 08:15 | DISCHARGE SUMMARY ---
ADMISSION DATE: 10/01/2018 DISCHARGE DATE: 11/04/2018 DISCHARGE DIAGNOSES: 1. Septic shock with severe metabolic acidosis. 2. Hypoxemic respiratory failure due to lung collapse due to mucous plug superimposed with Pseudomonas and pseudomonal pneumonia and Haylee infection. 3. Acute on chronic kidney disease, oliguric. 4. Anasarca. 5. History of atrial fibrillation with history of bradycardia, status post pacemaker placement. 6. Left upper extremity deep vein thrombosis. 7. Thrombocytopenia. 8. Hypocalcemia. 9. Normocytic anemia. 10. This patient demised today 11/04/2018 at 1409 hours. Family members at the bedside. HOSPITAL COURSE: A 73-year-old, female with a past medical history of CKD, A- fib, bradycardia status post pacemaker placement, hyperlipidemia, hypertension, iron-deficiency anemia, COPD, type 2 diabetes, history of breast cancer and morbid obesity, presented to the emergency department with a chief complaint of left-sided abdominal pain in the upper and lower quadrants associated with nausea and vomiting. She did try to take some Pepto- Bismol with no relief. CT scan of the abdomen and pelvis showed bibasilar material in several loops and small- bowel with no significant distention. There is a nonspecific finding suggesting low bowel transit, body wall anasarca. So, the patient was initially admitted due to the possibility of small-bowel obstruction. Surgery Department was consulted. This patient was placed n.p.o. with IV fluids, nausea medication. Surgery Department evaluated the patient. They state nausea and vomiting were of unclear etiology. She did not appear to have any significant obstruction. Will continue with the IV fluids, symptomatic pain and nausea medication. Abdominal x-ray depending on the next day's physical exam and images and they will make the decision to continue with medical treatment or surgery. Abdominal x-ray showed a nonspecific abdomen, but showed atelectasis versus pneumonia at the level of the left lower lobe. Chest x-ray the same day showed worsening atelectasis versus pneumonia at the level of the right lower lobe and stable left upper and lower lobe pneumonia. Then, she started having hypoxemic respiratory failure that was likely related to her pneumonia, possible aspiration type associated with possible pulmonary edema as well. That was described like acute with septic shock. Multiple subspecialties were consulted including Pulmonary Department and Cardiology Department as well. Also, she started having atrial fibrillation with RVR, started treatment and like I said, subspecialties were on board. Chest CT done on 10/03/2018 showed atelectasis versus pneumonia throughout most of the left lung with mucous plugging of the left main bronchus, bilateral pleural effusion, pericardial effusion, cardiomegaly, patchy right upper and lower pneumonia and right lower lobe atelectasis versus pneumonia. She started having subtotal opacification of the left hemithorax with volume loss, no new consolidation. Then, Pulmonary Department decided to go ahead and do a bronchoscopy since, with treatment, this opacification and mucous plugging was not resolving. On 10/06/2018, bronchoscopy was done that showed left mucous plugging, atelectasis and pneumonia was removed. Some biopsies were done. We continued with following this patient closely. She has always been on broad-spectrum antibiotics. She also at some point started having some worsening of her kidney function which is chronic and was improving slowly. We tried to take care of all her comorbidities as well, but she continued having now a complete atelectasis of the left lung and continued with acute hypoxemic respiratory failure with pneumonia. We had been doing not only oxygen supplementation, but also a trial with the BiPAP machine, bronchial hygiene, and we tried to get this patient out of the bed as tolerated, but she continued having complete opacification of the left lung. At some point, she presented with edema in the left arm with a PICC line in place, and an ultrasound of that area was done to rule out DVT and she actually had acute DVT in the left axillary vein. She started getting anticoagulation. Again, on 10/13/2018, this patient went again for a bronchoscopy. That showed a left lung atelectasis, left mainstem mucous membrane inflammation and hypertrophy. We cannot rule out inflammation. Since this patient has a DVT at the level of the upper extremity, we decided to place a right internal jugular vein central line under the ultrasound. Even though she has been having bronchoscopy, she is still having opacification of the left lung left hemithorax. The right lung was improving though. Then, this patient started having thrombocytopenia with no signs of bleeding. Hematology/Oncology Department evaluated this patient and they stated that most likely this is caused by peripheral consumption due to her acute illness. Will continue with anticoagulation. Then, she had a third bronchoscopy done on 10/20/2018 with impression of left lung white-out, mucous plugging likely blocking tumor in the left mainstem of the bifurcation of the left upper, left lower. 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 So, we continue with aggressive bronchial hygiene. Encouraged patient to lay on both the right and left side to attempt to re-expand the left lung. Continue with antibiotics and multiple followups with x-ray. The platelet count improved. The atrial fibrillation also was under control. We have been noticing that this patient's urine output was low and she has some fluid overload/anasarca. So, Nephrology Department was consulted. Then, we noticed that the blood pressure started to be low, but since we could not take an accurate blood pressure at the level of the upper extremities because of the DVT on 1 side and because of the right mastectomy on the right side, we sent this patient to the ICU. We put her on pressors, but it looks like the low blood pressure was positional because turning this patient [id number] the blood pressure at some point was better than others. Anyway, we kept the patient in the ICU. We started trying to diurese this patient. We did a trial of a few days of albumin and furosemide, but the urine output basically was decreasing to the point that the patient became anuric. We thought about the possibility of starting dialysis on this patient, but the blood pressure was also going down, patient was extremely confused/lethargic. Septic shock also was likely due to pneumonia with a positive culture that showed Pseudomonas and Haylee. Infectious Disease department treating this patient closely We talked to the family members, especially her daughters, and today this patient not only was lethargic, but she was having more respiratory problems/failure. We talked about intubation and CPR in case of cardiac arrest, but the family (her daughters) decided to put this patient DNR level 1. Today I talked with 1 of the daughters in the morning and, given her current condition, critically ill, I talked to them about comfort measures only or continue with treatment. This patient also had septic shock and she was placed on 3 pressors. They seemed to understand everything. . After a few hours, they have decided to go ahead and withdrawal care and put this patient on comfort measures only. The patient's demise was at 1409 hours on 11/04/2018, family members at the bedside. cc: Evan Rosenthal MD MTDD
== END 2018-11-04 14:09 | disposition expired | DRG 853 ==
LOC: P.ED 02:12 → P.EDIPHOLD 02:12 → SUATTDRO 06:00 → OBSVTOIN 06:00 → P.ICU 20:56 → ICU 10-02 16:01 → 4N 10-07 12:17 → ICU 10-20 16:57 → 4N 10-22 10:39 → 3S 10-27 17:24 → ICU 10-28 22:22 → 3S 10-30 11:28 → ICU 11-01 10:43
PROVIDERS: ATTEND Internal Medicine
CPT/HCPCS: 36430; 36569; 70450; 71010; 71045; 71250; 74019; 74020; 74176; 76000; 76770; 80048; 80053; 80069; 80074; 80200; 81001; 82009; 82040; 82150; 82271; 82378; 82533; 82570; 82607; 82746; 82805; 82948; 83036; 83605; 83690; 83735; 83880; 84156; 84300; 84484; 85025; 85027; 85610; 85730; 86022; 86850; 86900; 86901; 86920; 87015; 87040; 87070; 87077; 87088; 87102; 87116; 87147; 87186; 87205; 87206; 88112; 88305; 93005; 93010; 93971; 94640; 94660; 94667; 94668; 94761; 94762; 94799; 96374; 97110; 97162; 97166; 97530; 97535; 99285; A9270; C9113; J0171; J0461; J0692; J1160; J1170; J1450; J1630; J1650; J1652; J1940; J1956; J2020; J2060; J2248; J2270; J2370; J2405; J2543; J2920; J2997; J3260; J3430; J3475; J7030; J7040; J7050; P9016; P9035; P9047; S0164; XXXXX